=== PATIENT | male | born 1945 | race Caucasian/White ===

== ENCOUNTER → 2017-12-30 | Outpatient (CLI) | payer MEDICARE ==
[2017-12-30 17:05] LABS: BASO % 0.6 % (0.0-1.0); EOS # 0.2 10^3/uL (0.0-0.50); EOS % 3.2 % (0.0-3.0); HEMATOCRIT 39.6 % (42.0-52.0); HEMOGLOBIN 12.7 g/dl (13.5-17.5); IMMATURE GRANULOCYTE % 0.3 % (0-3.0); LYMPH # 2.2 10^3/uL (1.5-4.5); LYMPH % 34.7 % (24.0-44.0); MEAN CORPUSCULAR HGB CONC 32.1 g/dl (32.0-36.5); MEAN CORPUSCULAR VOLUME 93.4 fl (80.0-96.0); MONO # 0.6 10^3/uL (0.0-0.8); MONO % 9.6 % (0.0-5.0); NEUTROPHILS # 3.3 10^3/uL (1.8-7.7); NEUTROPHILS % 51.6 % (36.0-66.0); PLATELET COUNT, AUTOMATED 330 10^3/uL (150-450); RED BLOOD COUNT 4.24 10^6/uL (4.30-6.10); RED CELL DISTRIBUTION WIDTH 16.4 % (11.5-14.5); WHITE BLOOD COUNT 6.3 10^3/uL (4.0-10.0)
[2017-12-30 17:23] LABS: ESTIMATED AVERAGE GLUCOSE 114 MG/DL (60-110); HEMOGLOBIN A1c 5.6 %
[2017-12-30 17:30] LABS: ALBUMIN 3.8 GM/DL (3.2-5.2); ALBUMIN/GLOBULIN RATIO 1.23 (1.00-1.93); ALKALINE PHOSPHATASE 49 U/L (45-117); ALT/SGPT 18 U/L (12-78); ANION GAP 8 MEQ/L (8-16); AST/SGOT 15 U/L (7-37); BILIRUBIN,TOTAL 0.3 MG/DL (0.2-1.0); BLOOD UREA NITROGEN 26 MG/DL (7-18); CALCIUM LEVEL 9.5 MG/DL (8.8-10.2); CARBON DIOXIDE LEVEL 27 MEQ/L (21-32); CHLORIDE LEVEL 107 MEQ/L (98-107); CHOLESTEROL LEVEL 132 MG/DL (<200); CHOLESTEROL RISK RATIO 1.833 (<5); GLOMERULAR FILTRATION RATE > 60.0 (>42); GLUCOSE, FASTING 86 MG/DL (70-100); HDL CHOLESTEROL 72 MG/DL (>40); NON-HDL-C 60 MG/DL; POTASSIUM SERUM 4.8 MEQ/L (3.5-5.1); SODIUM LEVEL 142 MEQ/L (136-145); TOTAL PROTEIN 6.9 GM/DL (6.4-8.2); TRIGLYCERIDES LEVEL 55 MG/DL (<150)
== END ==
LOC: M LRY 12:51
DX: R53.83 Other fatigue (principal); I10 Essential (primary) hypertension; E78.2 Mixed hyperlipidemia; E11.9 Type 2 diabetes mellitus without complications; Z12.5 Encounter for screening for malignant neoplasm of prostate
CPT/HCPCS: 84443

== ENCOUNTER → 2018-02-17 | Outpatient (REF) | payer MEDICARE ==
[2018-02-17 13:03] LABS: BLOOD UREA NITROGEN 22 MG/DL (7-18)
[2018-02-17 13:03] LABS: C REACTIVE PROTEIN QUANTITATIV 1.26 MG/DL (0.00-0.30); CREATININE FOR GFR 0.97 MG/DL (0.70-1.30); GLOMERULAR FILTRATION RATE > 60.0 (>42)
[2018-02-17 13:16] LABS: ERYTHROCYTE SEDIMENTATION RATE 34 mm/hr (0-20)
== END ==
LOC: M LABDRAW1 12:12
DX: M43.06 Spondylolysis, lumbar region (principal)
CPT/HCPCS: 82565

== ENCOUNTER → 2018-03-16 | Outpatient (CLI) | payer MEDICARE ==
[2018-03-16 13:05] LABS: ERYTHROCYTE SEDIMENTATION RATE 30 mm/hr (0-20)
[2018-03-16 13:13] LABS: C REACTIVE PROTEIN QUANTITATIV 1.25 MG/DL (0.00-0.30)
== END ==
LOC: M LAB 12:28
DX: M47.892 Other spondylosis, cervical region (principal)
CPT/HCPCS: 86140

== ENCOUNTER → 2018-03-24 | Outpatient (CLI) | payer MEDICARE ==
[2018-03-24 13:46] LABS: BASO # 0.1 10^3/uL (0.0-0.2); BASO % 0.9 % (0.0-1.0); EOS # 0.3 10^3/uL (0.0-0.50); EOS % 5.1 % (0.0-3.0); HEMATOCRIT 37.2 % (42.0-52.0); HEMOGLOBIN 11.9 g/dl (13.5-17.5); IMMATURE GRANULOCYTE % 0.5 % (0-3.0); LYMPH % 30.8 % (24.0-44.0); MEAN CORPUSCULAR HEMOGLOBIN 30.4 pg (27.0-33.0); MEAN CORPUSCULAR VOLUME 95.1 fl (80.0-96.0); MONO # 0.6 10^3/uL (0.0-0.8); MONO % 8.9 % (0.0-5.0); NEUTROPHILS # 3.6 10^3/uL (1.8-7.7); NEUTROPHILS % 53.8 % (36.0-66.0); PLATELET COUNT, AUTOMATED 283 10^3/uL (150-450); RED BLOOD COUNT 3.91 10^6/uL (4.30-6.10); RED CELL DISTRIBUTION WIDTH 16.4 % (11.5-14.5); WHITE BLOOD COUNT 6.6 10^3/uL (4.0-10.0)
[2018-03-24 14:15] LABS: ALBUMIN 3.5 GM/DL (3.2-5.2); ALBUMIN/GLOBULIN RATIO 1.35 (1.00-1.93); ALKALINE PHOSPHATASE 49 U/L (45-117); ALT/SGPT 19 U/L (12-78); ANION GAP 4 MEQ/L (8-16); AST/SGOT 16 U/L (7-37); BILIRUBIN,TOTAL 0.4 MG/DL (0.2-1.0); BLOOD UREA NITROGEN 25 MG/DL (7-18); CALCIUM LEVEL 9.1 MG/DL (8.8-10.2); CARBON DIOXIDE LEVEL 27 MEQ/L (21-32); CHLORIDE LEVEL 108 MEQ/L (98-107); CHOLESTEROL LEVEL 120 MG/DL (<200); CHOLESTEROL RISK RATIO 2.105 (<5); CREATININE FOR GFR 0.91 MG/DL (0.70-1.30); GLOMERULAR FILTRATION RATE > 60.0 (>42); GLUCOSE, FASTING 83 MG/DL (70-100); HDL CHOLESTEROL 57 MG/DL (>40); LDL CHOLESTEROL 50 MG/DL (<100); NON-HDL-C 63 MG/DL; PROSTATIC SPECIFIC AG MONITOR 0.91 NG/ML (< 4.0); SODIUM LEVEL 139 MEQ/L (136-145); TESTOSTERONE 288 NG/DL (241-827); THYROID STIMULATING HORMONE 0.927 uIU/ML (0.358-3.740); TOTAL PROTEIN 6.1 GM/DL (6.4-8.2); TRIGLYCERIDES LEVEL 66 MG/DL (<150)
[2018-03-24 14:44] LABS: ESTIMATED AVERAGE GLUCOSE 114 MG/DL (60-110); HEMOGLOBIN A1c 5.6 %
== END ==
LOC: M LAB 12:59
DX: R53.83 Other fatigue (principal); I10 Essential (primary) hypertension; E11.9 Type 2 diabetes mellitus without complications; R79.89 Other specified abnormal findings of blood chemistry; E78.2 Mixed hyperlipidemia
CPT/HCPCS: 84403

== ENCOUNTER → 2018-08-25 | Outpatient (CLI) | payer MEDICARE ==
[~2018-08-25] MED LIST: ACET1TAB55 PO; ADV250INH INH; ALBU17IN INH; ARIC1TAB2 PO; ASPI81TA26 PO; BACL10TA2 PO; BROV15NE INH; BUDE0.5S6 INH; CETI5TAB2 PO; CYCL5TAB5 PO; DILA1LIQ2 PO; ETOD30CA PO; EUCERIN TOP; FENO135C6 PO; FIBE625T22 PO; HYDR-3715 PO; KLOR10TA76 PO; KLOR1TAB73 PO; MAGN500T5 PO; META1TAB22 PO; METR1INJ2 IV; MIRA0.12 PO; MOME50SP; MUCI600T37 PO; NEUR600T PO; OMEP20CA3 PO; OSTETAB7 PO; PERC5TAB12 PO; PULM90IN INH; REST0.05 OU; ROCE1INJ6 INJ; SING10TA32 PO; SPIR50TA4 PO; SULF500T2 PO; TEST200I14 IM; TRIAMCIN TOP; TRIL135C6 PO; TUDO1AER2 INH; VALS320T PO; VICT18IN SC; VITA500T PO; VITMTA PO; XYZA5TAB2 PO; ZETI10TA30 PO; ZYLO300T6 PO
--- NOTE | 2018-08-25 12:19 | REP ---
CHEST X-RAY: Three views presented. HISTORY: Asthma. COMPARISON STUDY: March 31, 2006. FINDINGS: The lungs are symmetrically aerated and free of infiltrate. Pleural angles are sharp. Heart is not enlarged. The aorta is calcific and somewhat tortuous. There are degenerative changes in the thoracic spine. Right hemidiaphragm is slightly elevated with colonic gas immediately beneath it. There are degenerative changes in the shoulders. IMPRESSION: No active disease. Electronically Signed by Rashard Hill MD 08/25/2018 01:08 P
== END ==
LOC: M SMT 09:54
PROVIDERS: ATTEND Internal Medicine Pulmonary Disease
DX: J45.40 Moderate persistent asthma, uncomplicated (principal)

== ENCOUNTER → 2018-09-22 | Outpatient (CLI) | payer MEDICARE ==
[2018-09-22 20:49] LABS: ALBUMIN 3.5 GM/DL (3.2-5.2); ALT/SGPT 19 U/L (12-78); BILIRUBIN,TOTAL 0.2 MG/DL (0.2-1.0); BLOOD UREA NITROGEN 26 MG/DL (7-18); CALCIUM LEVEL 8.9 MG/DL (8.8-10.2); CARBON DIOXIDE LEVEL 31 MEQ/L (21-32); CHLORIDE LEVEL 109 MEQ/L (98-107); CHOLESTEROL LEVEL 184 MG/DL (<200); CHOLESTEROL RISK RATIO 2.875 (<5); CREATININE FOR GFR 1.03 MG/DL (0.70-1.30); FREE T4 0.88 NG/DL (0.76-1.46); GLOMERULAR FILTRATION RATE > 60.0 (>42); GLUCOSE, FASTING 61 MG/DL (70-100); HDL CHOLESTEROL 64 MG/DL (>40); LDL CHOLESTEROL 93 MG/DL (<100); NON-HDL-C 120 MG/DL; POTASSIUM SERUM 4.6 MEQ/L (3.5-5.1); SODIUM LEVEL 143 MEQ/L (136-145); TRIGLYCERIDES LEVEL 137 MG/DL (<150)
[2018-09-22 20:50] LABS: BASO # 0.1 10^3/uL (0.0-0.2); BASO % 0.9 % (0.0-1.0); EOS # 0.4 10^3/uL (0.0-0.50); EOS % 4.9 % (0.0-3.0); HEMATOCRIT 41.9 % (42.0-52.0); HEMOGLOBIN 13.4 g/dl (13.5-17.5); LYMPH # 2.1 10^3/uL (1.5-4.5); LYMPH % 23.5 % (24.0-44.0); MEAN CORPUSCULAR HEMOGLOBIN 30.9 pg (27.0-33.0); MEAN CORPUSCULAR VOLUME 96.5 fl (80.0-96.0); MONO # 0.8 10^3/uL (0.0-0.8); MONO % 9.5 % (0.0-5.0); NEUTROPHILS # 5.3 10^3/uL (1.8-7.7); NEUTROPHILS % 60.2 % (36.0-66.0); PLATELET COUNT, AUTOMATED 382 10^3/uL (150-450); RED BLOOD COUNT 4.34 10^6/uL (4.30-6.10); WHITE BLOOD COUNT 8.9 10^3/uL (4.0-10.0)
== END ==
LOC: M LRY 18:22
PROVIDERS: ATTEND Physician Assistant Medical
DX: E11.9 Type 2 diabetes mellitus without complications (principal); E78.2 Mixed hyperlipidemia; I10 Essential (primary) hypertension; R53.83 Other fatigue

== ENCOUNTER 2019-03-06 20:39 | Inpatient (IN) | payer MEDICARE ==
[~2019-03-06] VITALS: Ht 175.3 cm; Wt 139.4 kg
[~2019-03-06 20:39] MED LIST changes: -OMEP20CA3 PO; +OMEP20CA4 PO; -TUDO1AER2 INH; +TUDO1AER3 INH; +ZETI10TA16 PO; -ZETI10TA30 PO
[2019-03-06] MEDS ORDERED: MORPHINE 2 MG/ML 1ML SYRINGE (J2270) IV ONE (22:00)
[2019-03-06] MEDS ORDERED: OMEP-221 PO (22:29)
[2019-03-06] MEDS ORDERED: ACET-683 PO (22:29)
[2019-03-06] MEDS ORDERED: CALC625T15 PO (22:29)
[2019-03-06] MEDS ORDERED: LOSA100T8 PO (22:29)
[2019-03-06] MEDS ORDERED: OSTE5TAB PO (22:29)
[2019-03-06] MEDS ORDERED: EQL50TAB2 PO (22:30)
[2019-03-06] MEDS ORDERED: CO Q400C2 PO (22:30)
[2019-03-06] MEDS ORDERED: EUCECRE8 TOP (22:30)
[2019-03-06] MEDS ORDERED: ALL10TAB29 PO (22:30)
[2019-03-06] MEDS ORDERED: REST0.05 OU (22:30)
[2019-03-06] MEDS ORDERED: MAGN400T2 PO (22:30)
[2019-03-06] MEDS ORDERED: MUCI600T31 PO (22:30)
[2019-03-06] MEDS ORDERED: LYRI75CA PO (22:31)
[2019-03-06] MEDS ORDERED: BUME1TAB3 PO (22:31)
[2019-03-06] MEDS ORDERED: XALA0.007 OU (22:31)
[2019-03-06] MEDS ORDERED: ANOR1AER INH (22:31)
[2019-03-06] MEDS ORDERED: TRAM50TA2 PO (22:31)
[2019-03-06 22:52] LABS: BASO # 0.1 10^3/uL (0.0-0.2); BASO % 0.9 % (0.0-1.0); EOS # 0.3 10^3/uL (0.0-0.5); EOS % 2.9 % (0.0-3.0); HEMATOCRIT 43.1 % (42.0-52.0); HEMOGLOBIN 13.8 g/dl (13.5-17.5); LYMPH # 1.6 10^3/uL (1.5-5.0); LYMPH % 14.4 % (24.0-44.0); MEAN CORPUSCULAR HEMOGLOBIN 30.6 pg (27.0-33.0); MEAN CORPUSCULAR VOLUME 95.6 fl (80.0-96.0); MONO # 0.9 10^3/uL (0.0-0.8); MONO % 7.8 % (0.0-5.0); NEUTROPHILS # 8.4 10^3/uL (1.5-8.5); NEUTROPHILS % 73.5 % (36.0-66.0); PLATELET COUNT, AUTOMATED 309 10^3/uL (150-450); RED BLOOD COUNT 4.51 10^6/uL (4.30-6.10); WHITE BLOOD COUNT 11.4 10^3/uL (4.0-10.0)
[2019-03-06 22:57] LABS: BLOOD UREA NITROGEN 26 MG/DL (7-18); CALCIUM LEVEL 9.4 MG/DL (8.8-10.2); CARBON DIOXIDE LEVEL 29 MEQ/L (21-32); CHLORIDE LEVEL 104 MEQ/L (98-107); CREATININE FOR GFR 1.19 MG/DL (0.70-1.30); GLOMERULAR FILTRATION RATE > 60.0 (>42); GLUCOSE, FASTING 103 MG/DL (70-100); POTASSIUM SERUM 4.1 MEQ/L (3.5-5.1); SODIUM LEVEL 140 MEQ/L (136-145)
[2019-03-07] MEDS ORDERED: MAALOX 30 ML SUSP *UDC PO PRN (00:30)
[2019-03-07] MEDS ORDERED: MOM 30ML SUSPENSION UDC PO PRN (00:30)
--- NOTE | 2019-03-07 00:44 | HPEPDOC ---
General Date of Admission 03/07/19 Date of Service: Mar 07, 2019 Primary Care Physician: Ron Mcmillan Chief Complaint The patient is a 73-year-old male admitted with a reason for visit of Left Hip Pain. Source: Patient Exam Limitations: No limitations Timing/Duration: Other (today) Severity: Severe Associated Symptoms: Other (, unable to ambulate) History of Present Illness This is a 72 years old, obese, white male with past medical history of chronic back pain, COPD, asthma up sleep apnea, GERD, hypertension, type 2 diabetes, history of hypokalemia, hyperlipidemia, diverticulosis, peptic ulcer disease, gout, psoriasis, dementia, cataract with dry eyes Coppertone syndrome, arthritis and of health when this evening he suddenly felt he he became weak on his left hip and was unable to ambulate and called EMS and was brought to the hospital. The patient denies chest pain, shortness of breath, nausea, vomiting, diarrhea, any focal motor or sensory deficit, headache, etc. Home Medications Scheduled Allopurinol (Zyloprim) 300 Mg Tab, 300 MG PO DAILY, (Reported) Ascorbic Acid (Vitamin C) 500 Mg Tab, 500 MG PO DAILY, (Reported) Aspirin (Aspirin EC) 81 Mg Tab, 81 MG PO QHS, (Reported) Baclofen (Baclofen) 10 Mg Tab, 10 MG PO TID, (Reported) Budesonide (Budesonide) 0.5 Mg/2 Ml Neb, 0.5 MG INH BID, (Reported) WITH BROVANA Bumetanide (Bumetanide) 1 Mg Tablet, 1 MG PO DAILY, (Reported) Calcium Polycarbophil (Calcium Polycarbophil) 625 Mg Tablet, 1,250 MG PO BID, (Reported) Cetirizine HCl (Cetirizine HCl) 10 Mg Tablet, 10 MG PO QHS, (Reported) Cyclosporine (Restasis) 0.05% Droperette, 1 DROP OU BID, (Reported) Donepezil HCl (Aricept) 10 Mg Tab, 10 MG PO DAILY, (Reported) Fenofibric Acid (Choline) (Fenofibric Acid) 135 Mg Cap, 135 MG PO QHS, (Reported) Glucosamine/D3/Boswellia Kasia (Osteo Bi-Flex Caplet) 1 Each Tablet, 2 TAB PO DAILY, (Reported) Guaifenesin (Mucinex) 600 Mg Tab.er.12h, 600 MG PO BID, (Reported) Latanoprost (Xalatan) 0.005% 2.5ML Drops, 1 DROP OU QHS, (Reported) Losartan/Hydrochlorothiazide (Losartan-Hctz 100-12.5 mg Tab) 1 Each Tablet, 1 TAB PO DAILY, (Reported) Magnesium Oxide (Magnesium Oxide) 400 Mg Tablet, 400 MG PO BID, (Reported) Mometasone Furoate Monohydrate (Nasonex) 120 [place]/17 Gm Naspr, 1 SPRAY NA BID, (Reported) Montelukast Sodium (Singulair) 10 Mg Tab, 10 MG PO QHS, (Reported) Multivitamins (Thera M Plus Tablet) 1 Tab Tab, 1 TAB PO DAILY, (Reported) Omeprazole (Omeprazole) 40 Mg Capsule.dr, 40 MG PO DAILY, (Reported) Potassium Chloride (Klor-Con M10) 10 Meq Tabcr, 10 MEQ PO DAILY, (Reported) Pramipexole Di-HCl (Mirapex) 0.125 Mg Tab, 0.125 MG PO QHS, (Reported) Pregabalin (Lyrica) 75 Mg Capsule, 75 MG PO TID, (Reported) Spironolactone (Spironolactone) 50 Mg Tab, 50 MG PO BID, (Reported) Sulfasalazine (Sulfasalazine) 500 Mg Tab, 1,000 MG PO DAILY, (Reported) Ubidecarenone (Co Q-10) 400 Mg Capsule, 400 MG PO DAILY, (Reported) Umeclidinium Brm/Vilanterol Tr (Anoro Ellipta 62.5-25 Mcg INH) 1 Each Blst.w.dev , 1 PUFF INH DAILY, (Reported) Vitamin B Complex (Vitamin B Complex) 1 Each Tablet, 1 TAB PO DAILY, (Reported) Scheduled PRN Acetaminophen (Acetaminophen) 500 Mg Tablet, 1,000 MG PO Q6H PRN for PAIN, (Reported) Lanolin Alcohol/Mo/W.pet/[place] (Eucerin Creme) 454 Gm Cream..g., 1 DOSE TOP QID PRN for PSORIASIS, (Reported) Tramadol HCl (Tramadol HCl) 50 Mg Tablet, 50 MG PO QID PRN for PAIN, (Reported) Allergies Coded Allergies: fluticasone (Verified Allergy, Unknown, 03/06/19) thiopental (Verified Allergy, Unknown, 03/07/19) Past Medical History Medical History Chronic back pain, COPD, asthma, stroke, obstructive sleep apnea, GERD, hypertension, type 2 diabetes mellitus, hypokalemia, hyperlipidemia, diverticulosis, peptic ulcer disease, obesity, gout, psoriasis, dementia, cataract Coppertone syndrome and arthritis Surgical History Bilateral carpal tunnel syndrome repair, bilateral cataract surgery, inguinal hernia repair Family History Significant Family History: No pertinent family hx Social History * Smoker: former Smoker Alcohol: Denies Drugs: denies A-FIB/CHADSVASC A-FIB History Current/History of A-Fib/PAF?: No Review of Systems Constitutional: Denies: Chills, Fever, Malaise, Night Sweats, Weakness, Fatigue, Weight Loss, Lethargy, Other Eyes: Denies: Pain, Vision change, Conjunctivae inflammation, Eyelid inf lammation, Redness, Other ENT: Denies: Head Aches, Ear Pain, Dysphagia, Sinus Congestion, Post Nasal Drip, Sore Throat, Epistaxis, Other Symptoms Skin: Denies: Rash, Lesions, Jaundice, Bruising, Itching, Dry, Breakdown, Nail Changes, Other Pulmonary: Denies: Dyspnea, Cough, Pleuritic Chest Pain, Other Symptoms Cardiovascular: Denies: Chest Pain, Palpitations, Orthopnea, Paroxysmal Noc. Dyspnea, Edema, Lt Headedness, Other Symptoms Gastrointestinal: Denies: Nausea, Vomiting, Abdominal Pain, Diarrhea, Constipation, Melena, Hematochezia, Other Symptoms Genitourinary: Denies: Dysuria, Frequency, Incontinence, Hematuria, Retention, Other Symptoms Hematologic: Denies: Bruising, Bleeding Excessively, Petecchia, Purpura, Enlarged Lymph Nodes, Other Hematologic Endocrine: Denies: Polydipsia, Polyphagia, Polyuria, Heat Intolerance, Cold Intolerance, Other Endocrine Sx Musculoskeletal: Reports: Other Symptoms (, weakness and pain in the left hip muscles) Neurological: Denies: Weakness, Numbness, Incoordination, Change in speech, Confusion, Seizures, Other Symptoms Psych: Denies: Mood Normal, Anxiety, Depression, Memory Issues, Thoughts of Self Harm, Anger, Thoughts of Harming Other, Other Psych Physical Examination General Exam: Positive: Alert, Cooperative Eye Exam: Positive: PERRLA, Conjunctiva & lids normal ENT Exam: Positive: Atraumatic, Mucous membr. moist/pink Chest Exam: Positive: Clear to auscultation, Normal air movement Heart Exam: Positive: Rate Normal, Normal S1, Normal S2 Abdomen Exam: Positive: Normal bowel sounds, Soft Extremity Exam: Positive: Normal pulses, Tenderness (. Positive tender. Tenderness and a dissection of left leg on his head) Skin Exam: Positive: Nl turgor and temperature Neuro Exam: Positive: Strength at 5/5 X4 ext, Sensation Intact, Cranial Nerves 3-12 NL Vital Signs Vital Signs Date Time Temp Pulse Resp B/P (MAP) Pulse Ox O2 Delivery O2 Flow Rate FiO2 03/06/19 23:06 20 98 03/06/19 22:58 76 166/74 (104) Room Air 03/06/19 20:48 97.3 Laboratory Data Labs 24H Laboratory Tests 2 03/06/19 22:21: Immature Granulocyte % (Auto) 0.5, White Blood Count 11.4H, Red Blood Count 4.51, Hemoglobin 13.8, Hematocrit 43.1, Mean Corpuscular Volume 95.6, Mean Corpuscular Hemoglobin 30.6, Mean Corpuscular Hemoglobin Concent 32.0, Red Cell Distribution Width 15.2H, Platelet Count 309, Neutrophils (%) (Auto) 73.5H, Lymphocytes (%) (Auto) 14.4L, Monocytes (%) (Auto) 7.8H, Eosinophils (%) (Auto) 2.9, Basophils (%) (Auto) 0.9, Neutrophils # (Auto) 8.4, Lymphocytes # (Auto) 1.6, Monocytes # (Auto) 0.9H, Eosinophils # (Auto) 0.3, Basophils # (Auto) 0.1, Nucleated Red Blood Cells % (auto) 0.0, Anion Gap 7L, Glomerular Filtration Rate > 60.0, Blood Urea Nitrogen 26H, Creatinine 1.19, Sodium Level 140, Potassium Level 4.1, Chloride Level 104, Carbon Dioxide Level 29, Calcium Level 9.4 CBC/BMP Laboratory Tests 03/06/19 22:21 Red Blood Count 4.51, Mean Corpuscular Volume 95.6, Mean Corpuscular Hemoglobin 30.6, Mean Corpuscular Hemoglobin Concent 32.0, Red Cell Distribution Width 15.2 H, Neutrophils (%) (Auto) 73.5 H, Lymphocytes (%) (Auto) 14.4 L, Monocytes (%) (Auto) 7.8 H, Eosinophils (%) (Auto) 2.9, Basophils (%) (Auto) 0.9, Neutrophils # (Auto) 8.4, Lymphocytes # (Auto) 1.6, Monocytes # (Auto) 0.9 H, Eosinophils # (Auto) 0.3, Basophils # (Auto) 0.1, Calcium Level 9.4 Problems (1) Decreased ambulation status Status: Acute Problem Text: 73 years old white male who is obese with multiple medical problems developed sudden onset of weakness, sudden weakness in his left hip. On ambulation, and was unable to walk on his left hip and decided come to ED. On physical exam, he has a tenderness and difficulty in abduction of left leg on the left hip but no focal motor or sensory deficit Dr. Jackson was called from orthopedic. He will see the patient tomorrow and r ecommend further management. Admit patient to medical floor with diagnosis of difficulty ambulation Bed rest 2 g sodium, consistent carbs diet Continue all home meds DVT prophylaxis with Lovenox Physical therapy evaluation called Dr. Jackson to see patient in a.m. Further, as per orthopedic recommendations (2) Strain of adductor muscle of thigh Status: Acute Problem Text: As above (3) TUSHAR on CPAP Status: Chronic Problem Text: CPAP during sleeping Continue home meds (4) Diabetes Status: Chronic Problem Text: Continue home meds Getting a extensive Q before meals and at bedtime with coverage (5) Hypertension Status: Chronic Problem Text: Under control Continue home meds (6) Hyperlipidemia Status: Chronic Problem Text: . Continue home meds (7) Gout Status: Chronic Problem Text: Continue home meds (8) Dementia Status: Chronic (9) Chronic obstructive airway disease with asthma Status: Chronic Problem Text: Continue home meds (10) Psoriasis Status: Chronic (11) Seasonal allergies Status: Chronic (12) GERD (gastroesophageal reflux disease) Status: Chronic Problem Text: Continue home meds Plan / VTE VTE Prophylaxis Ordered?: Yes JATINDER QUEEN MD Mar 07, 2019 00:44
[2019-03-07] MEDS: CETIRIZINE (ZyrTEC) 10 MG TAB PO SCH ×2 (02:22→23:11)
[2019-03-07] MEDS: ASPIRIN 81 MG ENTERIC TAB PO SCH ×2 (02:22→23:12)
[2019-03-07] MEDS: MONTELUKAST 10 MG TAB PO SCH ×2 (02:22→23:11)
[2019-03-07] MEDS: traMADol 50 MG TAB PO PRN (02:24)
[2019-03-07] MEDS: FENOFIBRATE 145 MG TAB (TRICOR) PO SCH ×2 (03:20→23:11)
[2019-03-07] MEDS: PRAMIPEXOLE (MIRAPEX) 0.125 MG TAB PO SCH ×2 (03:20→23:12)
[2019-03-07 05:31] VITALS: BP 150/72
[2019-03-07] MEDS: HEPARIN SOD (PORCINE) 5000 UNITS/ML VIAL SC SCH ×2 (06:11→18:45)
[2019-03-07] MEDS: BUDESONIDE 0.5 MG/2 ML INHALATION SUSPENSION INH SCH ×2 (07:27→17:59)
[2019-03-07 07:51] LABS: HEMATOCRIT 41.7 % (42.0-52.0); HEMOGLOBIN 13.4 g/dl (13.5-17.5); MEAN CORPUSCULAR HEMOGLOBIN 30.2 pg (27.0-33.0); MEAN CORPUSCULAR HGB CONC 32.1 g/dl (32.0-36.5); MEAN CORPUSCULAR VOLUME 94.1 fl (80.0-96.0); PLATELET COUNT, AUTOMATED 304 10^3/uL (150-450); RED BLOOD COUNT 4.43 10^6/uL (4.30-6.10); WHITE BLOOD COUNT 7.5 10^3/uL (4.0-10.0)
[2019-03-07] MEDS: ASCORBIC ACID 500 MG TAB PO SCH (08:20)
[2019-03-07] MEDS: hydroCHLOROthiazide 12.5 MG CAPSULE PO SCH (08:20)
[2019-03-07] MEDS: DONEPEZIL 5 MG TAB PO SCH (08:20)
[2019-03-07] MEDS: PREGABALIN 75 MG CAP(LYRICA) PO SCH ×3 (08:20→23:12)
[2019-03-07] MEDS: MULTIVITAMINS/MINERALS THERAP 1 TAB PO SCH (08:20)
[2019-03-07 08:21] LABS: ALBUMIN 3.5 GM/DL (3.2-5.2); ALT/SGPT 22 U/L (12-78); BILIRUBIN,TOTAL 0.4 MG/DL (0.2-1.0); BLOOD UREA NITROGEN 21 MG/DL (7-18); CALCIUM LEVEL 9.2 MG/DL (8.8-10.2); CARBON DIOXIDE LEVEL 29 MEQ/L (21-32); CHLORIDE LEVEL 105 MEQ/L (98-107); CREATININE FOR GFR 0.98 MG/DL (0.70-1.30); GLOMERULAR FILTRATION RATE > 60.0 (>42); GLUCOSE, FASTING 107 MG/DL (70-100); POTASSIUM SERUM 4.1 MEQ/L (3.5-5.1); SODIUM LEVEL 140 MEQ/L (136-145); TOTAL PROTEIN 6.7 GM/DL (6.4-8.2)
[2019-03-07] MEDS: BUMETANIDE 1 MG TAB PO SCH (08:21)
[2019-03-07] MEDS: ALLOPURINOL 300 MG TAB PO SCH (08:21)
[2019-03-07] MEDS: FIBER-CON 625 MG TAB PO SCH ×2 (08:21→23:12)
[2019-03-07] MEDS: MAGNESIUM OXIDE 400 MG TAB (MAG-OX) PO SCH ×2 (08:21→23:12)
[2019-03-07] MEDS: LOSARTAN 50 MG TAB PO SCH (08:21)
[2019-03-07] MEDS: guaiFENesin ER 600 MG TAB PO SCH ×2 (08:21→23:11)
[2019-03-07] MEDS: PANTOPRAZOLE 40MG TAB (PROTONIX) PO SCH (08:22)
[2019-03-07] MEDS: SPIRONOLACTONE 50 MG TAB PO SCH ×2 (08:22→23:12)
[2019-03-07] MEDS: POTASSIUM CHLORIDE 10 MEQ SR TABLET PO SCH (08:22)
[2019-03-07] MEDS: BACLOFEN 10 MG TAB PO SCH ×3 (08:22→23:11)
[2019-03-07] MEDS: DOCUSATE SODIUM 100 MG CAP PO SCH ×2 (08:25→23:10)
[2019-03-07] MEDS: ACETAMINOPHEN TAB 650MG DOSE (2X325MG) PO PRN ×2 (08:29→16:21)
[2019-03-07] MEDS ORDERED: FLUTICASONE PROP 0.05% NASAL SPRAY 16 GM (FLONASE) SCH (09:00)
[2019-03-07] MEDS: sulfaSALAzine 500 MG TABEC PO SCH (11:59)
--- NOTE | 2019-03-07 13:33 | REP ---
REASON FOR EXAM: Twisting injury yesterday. There is asymmetric hip joint space narrowing which is moderate. There is no acute fracture, dislocation or subluxation. IMPRESSION: Chronic changes. Electronically Signed by Gutierrez Jaramillo DO 03/07/2019 02:15 P
[2019-03-07 14:59] VITALS: BP 160/80
[2019-03-07 18:49] LABS: MAGNESIUM LEVEL 2.3 MG/DL (1.8-2.4); PHOSPHORUS LEVEL 3.4 MG/DL (2.5-4.9)
--- NOTE | 2019-03-07 19:16 | CR ---
DATE OF ADMISSION: 03/06/2019 CHIEF COMPLAINT: Left groin pain. HISTORY OF PRESENT ILLNESS: This 73-year-old man was in the kitchen yesterday evening. He went to turn and he felt like his legs in his "groin." [place] like his leg got "squashed." He has pain in the groin. He never had this before. It stayed in the groin. He found it difficult to ambulate, so he called an ambulance and presented to [facility]. He is admitted by the hospitalist and consulted to myself. He does have chronic problems with his lumbar spine. He has had two MRIs, at least, back in 2014 and 2018. He has seen Dr. Lakhani at some point. He has not had lumbar spine surgery. He has had bilateral knee replacements and a left reverse total shoulder arthroplasty. He was about to go down for a consult and MRI of his lumbar spine down in [place] the day that he fell, unfortunately. The pain is worse with abducting his leg. He did get up and walk a short distance today with a walker, but he had to keep his legs together to do that. It has gotten a little bit better since this first started about 24 hours ago. There is no hot, warm, swollen joints. Coughing does not make it worse. He normally ambulates with a cane. PAST MEDICAL HISTORY: Includes chronic back pain, chronic obstructive pulmonary disease (COPD), asthma, sleep apnea, gastroesophageal reflux disease (GERD), hypertension, type 2 diabetes, hypokalemia, hyperlipidemia, diverticulosis, peptic ulcer disease, gout, psoriasis, dementia, cataract with dry eyes, arthritis. HOME MEDICATIONS: Include allopurinol, vitamin C, aspirin, baclofen, budesonide, bumetanide, calcium polycarbophil, cetirizine, cyclosporine, donepezil, fenofibric acid, glucosamine, Mucinex, Xalatan, losartan/hydrochlorothiazide, magnesium oxide, mometasone, montelukast, multivitamin, omeprazole, potassium chloride, pramipexole, pregabalin, sironolactone, sulfasalazine, ubidecarenone, Anoro Ellipta, and vitamin B complex. ALLERGIES: FLUTICASONE, SODIUM PENTOTHAL. SURGICAL HISTORY: Bilateral total knee arthroplasty. Bilateral carpal tunnel syndrome release. Bilateral cataract surgery. Inguinal hernia repair. Left reverse total shoulder arthroplasty. REVIEW OF SYSTEMS: Was negative for shortness of breath, chest pain, nausea, vomiting, diarrhea, focal motor or sensory deficits, although he does say that it is quite difficult to ambulate and that he has weakness in his left lower extremity. He also does state that he has chronic lower extremity sensory changes, but this not changed or made worse recently. No bowel or bladder involvement. No perianal numbness. PHYSICAL EXAM: A 73-year-old man. He is lying supine. He is quite frustrated with the care so far here, unfortunately, he is quite upset. He did settle down. He is alert and oriented times three. He is here with his son. Vital signs: Temperature 97.9. Blood pressure 160/80. Pulse rate 85. Respiratory rate 16. 92% on room air. Inspection of his bilateral lower extremities reveal no obvious overlying redness, swelling, ecchymosis, deformity or atrophy. On palpation, there is palpable soreness and pain on palpation at the proximal adductor insertion, as well as along the length to about the mid thigh. There is no fluctuance, fluid collections or any redness or warmth or muscle atrophy there. No pain to the lateral aspect of the hip or posteriorly. No pain to the right lower extremity. Hip range of motion 0 to 90 degrees painless with this. Hip adduction and external rotation caused him quite a bit of pain again in the groin. Hip adduction was painless. No obvious lumps, bumps, swellings, or hernia there. No abdominal pain. Range of motion of the knee was reasonable at 0 to 120 degrees. This was symmetric bilaterally. There is sequelae anterior midline incision of the bilateral total knee arthroplasties. No effusion, redness, swelling or drainage from these. Distally, there is lower extremity pitting edema. He had normal sensation of the feet and good sensation from L2 to S1 subjectively. He is able to wiggle his toes, dorsiflex, plantar flex the foot. Strength in the lower extremities was reasonably well maintained, slightly weaker on left side with hip flexion on the left 4/5, on the right side 4+/5. Knee extension L3 as well as ankle dorsiflexion, plantar flexion and extensor hallucis longus (EHL) extension all 5/5. Radiograph was reviewed of the left hip, AP and frog-leg lateral. There was moderate degenerative changes, joint space narrowing but no obvious fracture. Laboratory examination revealed white blood cells 11.4 on admission, down to 7.5. Hemoglobin is stable at 13.8 and 13.4. ASSESSMENT/PLAN: 73-year-old man seems to have a muscular sprain/strain or an adductor muscle tear. He could have other things going on like exacerbation of his arthritis, exacerbation of his lumbar spinal stenosis, or even a hernia, or other organic causes of his hip pain. He is quite upset with the lack of investigations, and I think it is reasonable to obtain an updated MRI of his lumbar spine as he is at high risk of worsening of that given his age, obesity, and prior history of diskitis to rule that out. In addition, I will go ahead and order an MRI of his left hip to confirm the diagnosis and to put his mind at ease. I think in the meantime he be activity as tolerated, try nonoperative conservative measures to treat his presumed adductor sprain/tear, including physical therapy, anti-inflammatories, pain medications, gentle stretching, as well as heat and ice packs. We will see how this goes. He seemed more satisfied with this answer. I will see him in the morning when I round.
[2019-03-07 22:00] VITALS: BP 152/82
[2019-03-07] MEDS: LATANOPROST 0.005% OPHTH SOLN 2.5 ML OU SCH (23:10)
--- NOTE | 2019-03-07 23:28 | REPVR ---
PROCEDURE INFORMATION: Exam: MR Left Lower Extremity Without Contrast. Hip Exam date and time: 03/07/2019 10:23 PM Clinical history: 73 years old, male; Pain; Difficulty in walking and weakness; Hip; Left; Patient HX: Best images possible, PT was unable to tolerate further scanning at this time. ; Additional info: Assess adductor muscle tear or other cause of groin pain TECHNIQUE: Imaging protocol: MR of the Left lower extremity without intravenous contrast. Exam focused on the hip. COMPARISON: CR Hip, Ap,Lat 03/07/2019 12:34 PM FINDINGS: Some sequences are significantly degraded by patient motion artifact. As noted by the technologist, the patient is unable to tolerate further imaging. No evidence of an occult fracture seen. Mild reactive marrow edema is seen along the sacroiliac joints. No evidence of avascular necrosis at either femoral head. Slight heterogeneous red marrow is seen throughout the visualized pelvis which could be correlated for any underlying anemia. Intrinsic evaluation of the left hip is compromised by motion artifact. No obvious full-thickness cartilage loss is seen although chondromalacia is suspected. Small amount of fluid is seen at the left hip joint. No evidence of trochanteric, iliacus or iliopsoas bursitis. There is fluid sensitive signal hyperintensity involving the adductor compartment of the proximal left thigh, extending below the level of imaging, predominantly involving the abductor longus muscle, consistent with edema and/or hemorrhage. This may indicate a sprain or tear. Infection could have a similar appearance. Evaluation is limited by motion artifact. Edema and/or hemorrhage extend to the pubic origin of the muscle. Although not conclusive, there may be a small avulsion fragment inferolateral to the pubic tubercle, and/ or partial proximal tendon tear. IMPRESSION: Edema and/or hemorrhage extending below the level of imaging in the adductor compartment of the left proximal thigh, mainly involving the adductor longus muscle, suggesting injury, as discussed above. Complete evaluation is limited, as the entire extent is not included and on some sequences evaluation is significantly compromised by motion artifact. Findings discussed above in detail. Electronically signed by: Donovan Lagos On 03/07/2019 23:28:27 PM
--- NOTE | 2019-03-07 23:57 | REPVR ---
PROCEDURE INFORMATION: Exam: MR Lumbar Spine Without Contrast. Exam date and time: 03/07/2019 10:22 PM Clinical history: 73 years old, male; Lumbago with sciatica; Patient HX: Left groin pain; Additional info: Assess progression of preexisting stenosis ([facility]ors at [facility]) TECHNIQUE: Imaging protocol: Multiplanar magnetic resonance images of the lumbar spine without intravenous contrast. COMPARISON: CT abdomen/pelvis 02/15/2015. Study limitations: Diagnostic evaluation on some sequences is compromised by motion artifact. FINDINGS: There is moderate anterior vertebral body height loss at L1, similar to the prior exam and without associated edema, consistent with chronic compression. There may be bony fusion across the L1/L2 disc space. There is mild vertebral body height loss at L2 without associated edema consistent with chronic compression. Mild fluid sensitive signal hyperintensity is noted within the L3, L4 and L5 vertebral bodies which may be reactive/degenerative. No evidence of an occult fracture is seen. Heterogeneous marrow is noted at the lumbar levels. There is loss of anticipated yellow marrow signal elsewhere which could be correlated for underlying anemia. There is minimal retrolisthesis of L2 upon L3. There is mild retrolisthesis of L3 upon L4. There is grade 1 anterolisthesis of L4 upon L5. There is mild retrolisthesis of L5 upon S1. No paraspinal or ligamentous edema seen. The conus terminates at the T12 level with an unremarkable appearance. Nerve roots within the cauda equina appear diffusely thickened to the level of L5, filling the thecal sac, worrisome for arachnoiditis. There is prominent epidural fat, likely related to body habitus. T12/L1: There is mild disc space loss. Disc hydration is relatively preserved. There is mild posterior disc bulge. There is mild facet hypertrophy and ligamentum flavum hypertrophy. No significant-appearing central canal or neural foraminal compromise is seen. L1/L2: There is severe disc space loss and there may be bony fusion across the disc space. There is prominent posterior bony ridging. There is severe facet arthropathy and hypertrophy as well as ligamentum flavum hypertrophy. Findings result in mild to moderate spinal stenosis with moderate left subarticular zone compromise. Mild right and moderate left neural foraminal narrowing suspected. L2/L3: There is severe disc space loss and disc desiccation. There is severe concentric disc bulge and posterior bony ridging. There is severe ligamentum flavum hypertrophy. There is facet arthropathy and bony hypertrophy. Findings result in moderately severe spinal stenosis, severe left and moderately severe right neural foraminal narrowing. L3/L4: There is severe disc space loss and complete disc desiccation. Slight endplate irregularity is noted and changes of bony sclerosis around the disc space. There is moderately large posterior disc bulge and osteophyte complex. There is severe facet hypertrophy and ligamentum flavum hypertrophy which results in at least moderately severe spinal stenosis. There is compromise of the subarticular zones bilaterally. Severe bilateral neural foraminal narrowing suspected. L4/L5: There is severe disc space loss and disc desiccation. There is moderate concentric disc bulge. Small focal posterior central disc protrusion suspected slightly effacing the anterior thecal sac. There is severe facet arthropathy, facet hypertrophy and ligamentum flavum hypertrophy. These findings result in effacement and slight impingement of the exiting L4 nerve roots along the subarticular zones. At least moderate spinal stenosis otherwise centrally. L5/S1: There is severe disc space loss and disc desiccation. Moderate posterior disc bulging noted. There is moderately severe facet arthropathy. There is moderate ligamentum flavum hypertrophy. Posterior disc displacement slightly contact the left L5 nerve root the nerve root does not appear to be compressed. No central canal compromise is seen otherwise. Moderately severe bilateral neural foraminal narrowing is seen. IMPRESSION: Severe degenerative changes throughout the lumbar spine with multilevel malalignment. Findings result in central canal and foraminal compromise at multiple levels as discussed above. There is thickening of the nerve roots within the cauda equina above the L5 level, worrisome for arachnoiditis, filling the thecal sac. Followup with contrast is advised, to exclude any possibility of mass lesion within the cauda equina. Other findings discussed above in detail. Electronically signed by: Donovan Lagos On 03/07/2019 23:57:11 PM
[2019-03-08] MEDS: HEPARIN SOD (PORCINE) 5000 UNITS/ML VIAL SC SCH ×2 (05:44→17:34)
[2019-03-08 06:00] VITALS: BP 130/59
[2019-03-08 06:36] LABS: HEMATOCRIT 43.4 % (42.0-52.0); HEMOGLOBIN 14.3 g/dl (13.5-17.5); MEAN CORPUSCULAR HEMOGLOBIN 31.8 pg (27.0-33.0); MEAN CORPUSCULAR HGB CONC 32.9 g/dl (32.0-36.5); MEAN CORPUSCULAR VOLUME 96.4 fl (80.0-96.0); PLATELET COUNT, AUTOMATED 295 10^3/uL (150-450); WHITE BLOOD COUNT 8.1 10^3/uL (4.0-10.0)
[2019-03-08 06:59] LABS: ALBUMIN 3.4 GM/DL (3.2-5.2); ALT/SGPT 22 U/L (12-78); BILIRUBIN,TOTAL 0.4 MG/DL (0.2-1.0); BLOOD UREA NITROGEN 25 MG/DL (7-18); CALCIUM LEVEL 9.5 MG/DL (8.8-10.2); CARBON DIOXIDE LEVEL 30 MEQ/L (21-32); CHLORIDE LEVEL 104 MEQ/L (98-107); CREATININE FOR GFR 1.21 MG/DL (0.70-1.30); GLOMERULAR FILTRATION RATE > 60.0 (>42); GLUCOSE, FASTING 118 MG/DL (70-100); POTASSIUM SERUM 3.8 MEQ/L (3.5-5.1); SODIUM LEVEL 139 MEQ/L (136-145); TOTAL PROTEIN 6.9 GM/DL (6.4-8.2)
[2019-03-08] MEDS: BUDESONIDE 0.5 MG/2 ML INHALATION SUSPENSION INH SCH ×2 (07:10→20:25)
[2019-03-08] MEDS: DONEPEZIL 5 MG TAB PO SCH (09:32)
[2019-03-08] MEDS: DOCUSATE SODIUM 100 MG CAP PO SCH ×2 (09:32→20:46)
[2019-03-08] MEDS: MULTIVITAMINS/MINERALS THERAP 1 TAB PO SCH (09:32)
[2019-03-08] MEDS: MAGNESIUM OXIDE 400 MG TAB (MAG-OX) PO SCH ×2 (09:32→20:45)
[2019-03-08] MEDS: LOSARTAN 50 MG TAB PO SCH (09:33)
[2019-03-08] MEDS: BUMETANIDE 1 MG TAB PO SCH (09:33)
[2019-03-08] MEDS: hydroCHLOROthiazide 12.5 MG CAPSULE PO SCH (09:33)
[2019-03-08] MEDS: ALLOPURINOL 300 MG TAB PO SCH (09:33)
[2019-03-08] MEDS: FIBER-CON 625 MG TAB PO SCH ×2 (09:33→20:45)
[2019-03-08] MEDS: PREGABALIN 75 MG CAP(LYRICA) PO SCH ×3 (09:34→20:46)
[2019-03-08] MEDS: BACLOFEN 10 MG TAB PO SCH ×3 (09:34→20:45)
[2019-03-08] MEDS: SPIRONOLACTONE 50 MG TAB PO SCH ×2 (09:34→20:46)
[2019-03-08] MEDS: PANTOPRAZOLE 40MG TAB (PROTONIX) PO SCH (09:34)
[2019-03-08] MEDS: POTASSIUM CHLORIDE 10 MEQ SR TABLET PO SCH (09:34)
[2019-03-08] MEDS: ASCORBIC ACID 500 MG TAB PO SCH (09:34)
[2019-03-08] MEDS: guaiFENesin ER 600 MG TAB PO SCH ×2 (09:34→20:45)
--- NOTE | 2019-03-08 09:38 | REP ---
MRI lumbar spine: 03/08/2019. Indication: Low back pain. Follow-up to unenhanced MRI lumbar spine complete of the previous day. Comparison: Yesterday. Technique: Multiplanar T1 sequences following gadolinium administration were performed. Impression: There may be very subtle enhancement of the cauda quinine inferiorly. The degenerative endplate changes additionally secure expected enhancement. The study otherwise remains stable. Impression: Possible very subtle enhancement of the cauda quinine. Arachnoiditis/meningitis again considered. No areas of nodular enhancement are detected. Electronically Signed by Bryce Frazier DO 03/08/2019 09:30 A
[2019-03-08] MEDS: sulfaSALAzine 500 MG TABEC PO SCH (09:40)
[2019-03-08 10:00] VITALS: BP 120/57
[2019-03-08 14:00] VITALS: BP 122/63
--- NOTE | 2019-03-08 14:32 | IPN ---
DATE: 03/08/2019 CHIEF COMPLAINT: Post admission day 1 left groin pain. HISTORY OF PRESENT ILLNESS: This is a 73-year-old man who presented with 24-hour history of left groin pain following a twisting injury in his kitchen. He is experiencing pain in the groin that is worse with moving the leg away from the body. There are no neurologic symptoms, but he apparently has had chronic lumbar spinal stenosis in the past. He was communicating with Dr. Lakhani at [facility] ([facility]) multiple times in regards to this. He had also planned to go down to [place] yesterday for more imaging and another spine consult. PHYSICAL EXAM: This is a well-appearing 73-year-old man lying supine in bed. States that he feels more comfortable today. Vital signs: Stable yesterday evening, not recorded this morning. He is able wiggle his toes, dorsiflex and plantar flex his foot. He can lift his leg off the bed. Still with groin pain to hip abduction. MRI on the left hip was ordered and reviewed. Radiologist's report states some edema and/or hemorrhage extending below the level of imaging in the adductor compartment of the left proximal thigh, mainly involving the adductor longus muscle, suggesting injury, as discussed above. Complete evaluation is limited, the entire extent is not included and sequence evaluation is significantly compromised by motion artifact. . Right lumbar spine MRI was reviewed as well. This shows severe degenerative changes throughout the lumbar spine with multilevel with malalignment. Findings results of the central canal and foraminal compromise at multiple levels as discussed above. There is thickening of the nerve roots of the cauda equina above the L5 level, worrisome for arachnoiditis, filling of thecal sac. Followup with contrast is advised to exclude any possibility of mass lesion within the cauda equina. ASSESSMENT/PLAN: My overall clinical impression is still that this man's acute recent symptoms are more due to the abductor strain that is showing up on MRI of the hip. For the lumbar spine, the radiologist suggested followup MRI with contrast, and I will go ahead and order that. For his lumbar spine, I have communicated with Dr. Lakhani last night in regards to this man being in hospital and I will also ask Dr. Lakhani to see this man in regards to the new findings indicating potential arachnoiditis of his lumbar spine and the fact that we are following this up with another MRI with contrast to see if there is anything from a spine surgeon's perspective to do for this man.
--- NOTE | 2019-03-08 15:31 | IPNPDOC ---
Date Seen The patient was seen on 03/08/19. Progress Note SUBJECTIVE: 73-year-old male with past medical history of obstructive sleep apnea, diabetes, hypertension, gout, COPD, chronic back pain and GERD was admitted for hip pain after he felt like he pulled his muscle. Upon further resignation with an MRI patient likely had a muscle strain/tear. He reports significant improvement in pain and mobility since yesterday, is working with physical therapy, was able to get out of bed into chair on his own today. He reports chronic low back pain due to severe disc disease, no acute changes. He has no other complaints at this time, denies shortness of breath, chest pain, nausea, vomiting, abdominal pain or diarrhea. 10 point review of systems negative except for above PHYSICAL EXAMINATION: VITAL SIGNS: Please see below. GENERAL: No distress HEENT: Normocephalic, atraumatic, moist mucous membranes NECK: Supple CARDIOVASCULAR EXAMINATION: S1, S2, no murmurs RESPIRATORY EXAMINATION: Diminished, distant, no wheezing ABDOMINAL EXAMINATION: Soft, nontender, nondistended, positive bowel sounds EXTREMITIES: Left lower extremity range of motion limited due to pain SKIN: No rash NEUROLOGICAL EXAMINATION: Alert and oriented 3, no focal deficits PSYCHIATRIC EXAMINATION: Calm and cooperative LABORATORY DATA, IMAGING STUDIES, MICROBIOLOGY: Please see below. DVT prophylaxis ordered?: Yes ASSESSMENT AND PLAN: 73-year-old male with past medical history of obstructive sleep apnea, diabetes, hypertension and chronic back pain, admitted for abductor longus strain/tear. PROBLEMS: 1. Left hip pain: . MRI showing possible abductor longus strain/tear. MRI of the lumbar spine concerning for arachnoiditis/meningitis. Orthopedic surgery following, spine surgeon consulted. Continue pain control, PT/OT. 2. COPD: . Stable, continue home meds 3. Obstructive sleep apnea: Continue CPAP at night. 4. Hypertension. Continue home meds with hold parameters. 5. Gout. Continue allopurinol. DVT prophylaxis: Heparin subcutaneous. GI prophylaxis: Protonix VS, I&O, 24H, Fishbone Vital Signs/I&O Vital Signs Date Time Temp Pulse Resp B/P (MAP) Pulse Ox O2 Delivery O2 Flow Rate FiO2 03/08/19 10:00 98.0 76 17 120/57 (78) 90 03/07/19 04:21 Room Air I&O- Last 24 Hours up to 6 AM 03/08/19 06:00 Intake Total 600 ml Output Total 2500 ml Balance -1900 ml Laboratory Data 24H LABS Laboratory Tests 2 03/07/19 17:33: Phosphorus Level 3.4, Magnesium Level 2.3 03/08/19 06:10: Nucleated Red Blood Cells % (auto) 0.0, Anion Gap 5L, Glomerular Filtration Rate > 60.0, Calcium Level 9.5, Total Bilirubin 0.4, Aspartate Amino Transf (AST/SGOT) 32, Alanine Aminotransferase (ALT/SGPT) 22, Alkaline Phosphatase 52, Total Protein 6.9, Albumin 3.4, Albumin/Globulin Ratio 0.97L CBC/BMP Laboratory Tests 03/08/19 06:10 HILARY HINSON MD Mar 08, 2019 15:31
[2019-03-08 15:46] LABS: MAGNESIUM LEVEL 2.2 MG/DL (1.8-2.4); PHOSPHORUS LEVEL 4.1 MG/DL (2.5-4.9)
[2019-03-08] MEDS: ACETAMINOPHEN TAB 650MG DOSE (2X325MG) PO PRN (16:41)
[2019-03-08] MEDS: PRAMIPEXOLE (MIRAPEX) 0.125 MG TAB PO SCH (20:45)
[2019-03-08] MEDS: ASPIRIN 81 MG ENTERIC TAB PO SCH (20:45)
[2019-03-08] MEDS: CETIRIZINE (ZyrTEC) 10 MG TAB PO SCH (20:45)
[2019-03-08] MEDS: MONTELUKAST 10 MG TAB PO SCH (20:45)
[2019-03-08] MEDS: FENOFIBRATE 145 MG TAB (TRICOR) PO SCH (20:45)
[2019-03-08] MEDS: LATANOPROST 0.005% OPHTH SOLN 2.5 ML OU SCH (20:46)
[2019-03-08 21:50] VITALS: BP 116/58
[2019-03-08] MEDS: traMADol 50 MG TAB PO PRN (23:37)
[2019-03-09] MEDS: HEPARIN SOD (PORCINE) 5000 UNITS/ML VIAL SC SCH ×2 (05:55→17:03)
[2019-03-09 06:40] VITALS: BP 158/73
[2019-03-09 06:56] LABS: HEMOGLOBIN 13.6 g/dl (13.5-17.5); MEAN CORPUSCULAR HEMOGLOBIN 31.1 pg (27.0-33.0); MEAN CORPUSCULAR HGB CONC 32.4 g/dl (32.0-36.5); MEAN CORPUSCULAR VOLUME 95.9 fl (80.0-96.0); PLATELET COUNT, AUTOMATED 289 10^3/uL (150-450); RED BLOOD COUNT 4.38 10^6/uL (4.30-6.10); WHITE BLOOD COUNT 7.9 10^3/uL (4.0-10.0)
[2019-03-09 07:25] LABS: BILIRUBIN,TOTAL 0.4 MG/DL (0.2-1.0); CALCIUM LEVEL 9.2 MG/DL (8.8-10.2); CREATININE FOR GFR 1.34 MG/DL (0.70-1.30); GLOMERULAR FILTRATION RATE 55.3 (>42); TOTAL PROTEIN 6.9 GM/DL (6.4-8.2)
[2019-03-09] MEDS: BUDESONIDE 0.5 MG/2 ML INHALATION SUSPENSION INH SCH ×2 (07:37→19:59)
[2019-03-09] MEDS: DOCUSATE SODIUM 100 MG CAP PO SCH ×3 (09:00→20:43)
[2019-03-09] MEDS: POTASSIUM CHLORIDE 10 MEQ SR TABLET PO SCH (09:27)
[2019-03-09] MEDS: FIBER-CON 625 MG TAB PO SCH ×2 (09:27→20:43)
[2019-03-09] MEDS: sulfaSALAzine 500 MG TABEC PO SCH (09:27)
[2019-03-09] MEDS: DONEPEZIL 5 MG TAB PO SCH (09:27)
[2019-03-09] MEDS: PREGABALIN 75 MG CAP(LYRICA) PO SCH ×3 (09:28→20:43)
[2019-03-09] MEDS: BUMETANIDE 1 MG TAB PO SCH (09:28)
[2019-03-09] MEDS: BACLOFEN 10 MG TAB PO SCH ×3 (09:28→20:43)
[2019-03-09] MEDS: MULTIVITAMINS/MINERALS THERAP 1 TAB PO SCH (09:28)
[2019-03-09] MEDS: hydroCHLOROthiazide 12.5 MG CAPSULE PO SCH (09:28)
[2019-03-09] MEDS: PANTOPRAZOLE 40MG TAB (PROTONIX) PO SCH (09:28)
[2019-03-09] MEDS: ASCORBIC ACID 500 MG TAB PO SCH (09:28)
[2019-03-09] MEDS: ALLOPURINOL 300 MG TAB PO SCH (09:28)
[2019-03-09] MEDS: guaiFENesin ER 600 MG TAB PO SCH ×2 (09:29→20:43)
[2019-03-09] MEDS: MAGNESIUM OXIDE 400 MG TAB (MAG-OX) PO SCH ×2 (09:29→20:43)
[2019-03-09] MEDS: SPIRONOLACTONE 50 MG TAB PO SCH ×2 (09:29→20:43)
[2019-03-09] MEDS: LOSARTAN 50 MG TAB PO SCH (09:29)
--- NOTE | 2019-03-09 13:45 | IPNPDOC ---
Date Seen The patient was seen on 03/09/19. Progress Note SUBJECTIVE: 73-year-old male with past medical history of obstructive sleep apnea, diabetes, hypertension, gout, COPD, chronic back pain and GERD was admitted for hip pain after he felt like he pulled his muscle. Upon further resignation with an MRI patient likely had a muscle strain/tear. He reports significant improvement in pain and mobility since yesterday, is working with physical therapy, was able to get out of bed into chair on his own today. He reports chronic low back pain due to severe disc disease, no acute changes. He has no other complaints at this time, denies shortness of breath, chest pain, nausea, vomiting, abdominal pain or diarrhea. 03/09/2019 Patient reports improvement in left hip pain, significant increase in mobility since admission, reports more confidence and decreased pain with activity. He has no additional complaints at this time, reports clinically close to baseline; denies shortness of breath, chest pain, vomiting, diarrhea or abdominal pain. 10 point review of systems negative except for above PHYSICAL EXAMINATION: VITAL SIGNS: Please see below. GENERAL: No distress HEENT: Normocephalic, atraumatic, moist mucous membranes NECK: Supple CARDIOVASCULAR EXAMINATION: S1, S2, no murmurs RESPIRATORY EXAMINATION: Diminished, distant, no wheezing ABDOMINAL EXAMINATION: Soft, nontender, nondistended, positive bowel sounds EXTREMITIES: Left lower extremity range of motion improved, lower extremity pitting edema. SKIN: No rash NEUROLOGICAL EXAMINATION: Alert and oriented 3, no focal deficits PSYCHIATRIC EXAMINATION: Calm and cooperative LABORATORY DATA, IMAGING STUDIES, MICROBIOLOGY: Please see below. DVT prophylaxis ordered?: Yes ASSESSMENT AND PLAN: 73-year-old male with past medical history of obstructive sleep apnea, diabetes, hypertension and chronic back pain, admitted for abductor longus strain/tear. PROBLEMS: 1. Left hip pain: . MRI showing possible abductor longus strain/tear. MRI of the lumbar spine concerning for arachnoiditis/meningitis. Orthopedic surgery following, spine surgeon kelly pending PT/OT kelly appreciated, will require home PT services, social work to arrange. 2. COPD: . Stable, continue home meds 3. Obstructive sleep apnea: Continue CPAP at night. 4. Hypertension. Continue home meds with hold parameters. 5. Gout. Continue allopurinol. DVT prophylaxis: Heparin subcutaneous. GI prophylaxis: Protonix VS, I&O, 24H, [place]ño Vital Signs/I&O Vital Signs Date Time Temp Pulse Resp B/P (MAP) Pulse Ox O2 Delivery O2 Flow Rate FiO2 03/09/19 09:29 158/73 03/09/19 06:40 98.6 95 20 100 03/07/19 04:21 Room Air I&O- Last 24 Hours up to 6 AM 03/09/19 06:00 Intake Total 2640 ml Output Total 1700 ml Balance 940 ml Laboratory Data 24H LABS Laboratory Tests 2 03/08/19 15:11: Phosphorus Level 4.1#, Magnesium Level 2.2 03/09/19 06:20: Nucleated Red Blood Cells % (auto) 0.0, Anion Gap 6L, Glomerular Filtration Rate 55.3, Calcium Level 9.2, Total Bilirubin 0.4, Aspartate Amino Transf (AST/SGOT) 30, Alanine Aminotransferase (ALT/SGPT) 21, Alkaline Phosphatase 50, Total Protein 6.9, Albumin 3.0L, Albumin/Globulin Ratio 0.77L CBC/BMP Laboratory Tests 03/09/19 06:20 HILARY HINSON MD Mar 09, 2019 13:45
[2019-03-09 14:38] VITALS: BP 116/70
[2019-03-09] MEDS: CETIRIZINE (ZyrTEC) 10 MG TAB PO SCH (20:43)
[2019-03-09] MEDS: FENOFIBRATE 145 MG TAB (TRICOR) PO SCH (20:43)
[2019-03-09] MEDS: MONTELUKAST 10 MG TAB PO SCH (20:43)
[2019-03-09] MEDS: ASPIRIN 81 MG ENTERIC TAB PO SCH (20:43)
[2019-03-09] MEDS: PRAMIPEXOLE (MIRAPEX) 0.125 MG TAB PO SCH (20:43)
[2019-03-09] MEDS: LATANOPROST 0.005% OPHTH SOLN 2.5 ML OU SCH (20:44)
[2019-03-09] MEDS: traMADol 50 MG TAB PO PRN (20:50)
[2019-03-09 21:27] VITALS: BP 114/68
[2019-03-10 05:38] VITALS: BP 142/70
[2019-03-10 06:41] LABS: HEMATOCRIT 42.5 % (42.0-52.0); HEMOGLOBIN 13.7 g/dl (13.5-17.5); MEAN CORPUSCULAR HEMOGLOBIN 30.9 pg (27.0-33.0); MEAN CORPUSCULAR HGB CONC 32.2 g/dl (32.0-36.5); MEAN CORPUSCULAR VOLUME 95.9 fl (80.0-96.0); PLATELET COUNT, AUTOMATED 288 10^3/uL (150-450); RED BLOOD COUNT 4.43 10^6/uL (4.30-6.10); WHITE BLOOD COUNT 9.3 10^3/uL (4.0-10.0)
[2019-03-10] MEDS: HEPARIN SOD (PORCINE) 5000 UNITS/ML VIAL SC SCH (06:49)
[2019-03-10 07:12] LABS: CALCIUM LEVEL 9.1 MG/DL (8.8-10.2); CREATININE FOR GFR 1.41 MG/DL (0.70-1.30); GLOMERULAR FILTRATION RATE 52.2 (>42); MAGNESIUM LEVEL 2.1 MG/DL (1.8-2.4); POTASSIUM SERUM 4.2 MEQ/L (3.5-5.1)
[2019-03-10] MEDS: BUDESONIDE 0.5 MG/2 ML INHALATION SUSPENSION INH SCH (07:53)
[2019-03-10] MEDS: MAGNESIUM OXIDE 400 MG TAB (MAG-OX) PO SCH (08:05)
[2019-03-10 08:06] VITALS: BP 149/69
[2019-03-10] MEDS: ASCORBIC ACID 500 MG TAB PO SCH (08:06)
[2019-03-10] MEDS: LOSARTAN 50 MG TAB PO SCH (08:06)
[2019-03-10] MEDS: BUMETANIDE 1 MG TAB PO SCH (08:06)
[2019-03-10] MEDS: FIBER-CON 625 MG TAB PO SCH (08:06)
[2019-03-10] MEDS: DOCUSATE SODIUM 100 MG CAP PO SCH (08:07)
[2019-03-10] MEDS: MULTIVITAMINS/MINERALS THERAP 1 TAB PO SCH (08:07)
[2019-03-10] MEDS: BACLOFEN 10 MG TAB PO SCH (08:07)
[2019-03-10] MEDS: ALLOPURINOL 300 MG TAB PO SCH (08:07)
[2019-03-10] MEDS: DONEPEZIL 5 MG TAB PO SCH (08:07)
[2019-03-10] MEDS: SPIRONOLACTONE 50 MG TAB PO SCH (08:07)
[2019-03-10] MEDS: POTASSIUM CHLORIDE 10 MEQ SR TABLET PO SCH (08:07)
[2019-03-10] MEDS: sulfaSALAzine 500 MG TABEC PO SCH (08:08)
[2019-03-10] MEDS: guaiFENesin ER 600 MG TAB PO SCH (08:08)
[2019-03-10] MEDS: PREGABALIN 75 MG CAP(LYRICA) PO SCH (08:08)
[2019-03-10] MEDS: hydroCHLOROthiazide 12.5 MG CAPSULE PO SCH (08:08)
[2019-03-10] MEDS: PANTOPRAZOLE 40MG TAB (PROTONIX) PO SCH (08:08)
--- NOTE | 2019-03-10 11:33 | DS.PDOC ---
Discharge Summary General Date of Admission Mar 06, 2019 at 20:40 Date of Discharge 03/10/2019 Attending Physician: HILARY HINSON MD Discharge Summary PROCEDURES PERFORMED DURING STAY: None. ADMITTING DIAGNOSES: 1. Left hip pain. DISCHARGE DIAGNOSES: 1. Abductor longus strain/tear. COMPLICATIONS/CHIEF COMPLAINT: Strain Of Abductor Muscle Of Thigh. HISTORY OF PRESENT ILLNESS: 73-year-old male with multiple medical comorbidities was admitted for left hip pain after he felt sharp pain while ambulating. Imaging was consistent with abductor longus strain/tear. Patient has been working with physical therapy with improvement in weightbearing status, activity, ambulation every day. He reports currently that he is back to his baseline activity level, able to ambulate without requiring PT. He reports the pain has sick dyspnea improved, range of motion is improved as well, previously was having significant pain with adduction and abduction of the left leg. Patient also had imaging of his lumbar spine which was concerning for chronic changes, was evaluated by his orthopedic surgeon, Dr. Lakhani, who reports no additional need for any intervention at this time, will follow up outpatient in his office. Patient was evaluated by PT who recommended home with home services, social work to arrange. Patient understands and agrees with discharge plan. HOSPITAL COURSE: As above. DISCHARGE MEDICATIONS: Please see below. ALLERGIES: Please see below. PHYSICAL EXAMINATION: VITAL SIGNS: Please see below. GENERAL: Obese, no distress HEENT: Normocephalic, atraumatic, moist mucous membranes NECK: Supple CARDIOVASCULAR EXAMINATION: S1, S2, no murmurs RESPIRATORY EXAMINATION: Distant, diminished, no wheezing ABDOMINAL EXAMINATION: Soft, nontender, nondistended, positive bowel sounds EXTREMITIES: Range of motion intact, bilateral lower extremity edema SKIN: No rash NEUROLOGICAL EXAMINATION: Alert and oriented 3, no focal deficits PSYCHIATRIC EXAMINATION: Calm and cooperative LABORATORY DATA: Please see below. IMAGING: MRI of left hip concerning for abductor longus strain/tear. MRI of lumbar spine with chronic spinal changes. PROGNOSIS: Guarded ACTIVITY: As tolerated. DIET: Cardiac with consistent carbs DISCHARGE PLAN: Issues follow-up with orthopedic surgeon. PCP within 1-2 weeks DISPOSITION: . DISCHARGE INSTRUCTIONS: 1. As above. DISCHARGE CONDITION: Stable. TIME SPENT ON DISCHARGE: Greater than 24 minutes. Vital Signs/I&Os Vital Signs Date Time Temp Pulse Resp B/P (MAP) Pulse Ox O2 Delivery O2 Flow Rate FiO2 03/10/19 08:06 149/69 03/10/19 05:38 97.0 70 20 92 NIPPV (BIPAP/CPAP) I&O- Last 24 Hours up to 6 AM 03/10/19 06:00 Intake Total 2040 ml Output Total 700 ml Balance 1340 ml Laboratory Data Labs 24H Laboratory Tests 2 03/10/19 06:25: Nucleated Red Blood Cells % (auto) 0.0, Anion Gap 6L, Glomerular Filtration Rate 52.2, Calcium Level 9.1, Phosphorus Level 4.0, Magnesium Level 2.1 CBC/BMP Laboratory Tests 03/10/19 06:25 Discharge Medications Scheduled Allopurinol (Zyloprim) 300 Mg Tab, 300 MG PO DAILY, (Reported) Ascorbic Acid (Vitamin C) 500 Mg Tab, 500 MG PO DAILY, (Reported) Aspirin (Aspirin EC) 81 Mg Tab, 81 MG PO QHS, (Reported) Baclofen (Baclofen) 10 Mg Tab, 10 MG PO TID, (Reported) Budesonide (Budesonide) 0.5 Mg/2 Ml Neb, 0.5 MG INH BID, (Reported) WITH BROVANA Bumetanide (Bumetanide) 1 Mg Tablet, 1 MG PO DAILY, (Reported) Calcium Polycarbophil (Calcium Polycarbophil) 625 Mg Tablet, 1,250 MG PO BID, (Reported) Cetirizine HCl (Cetirizine HCl) 10 Mg Tablet, 10 MG PO QHS, (Reported) Cyclosporine (Restasis) 0.05% Droperette, 1 DROP OU BID, (Reported) Donepezil HCl (Aricept) 10 Mg Tab, 10 MG PO DAILY, (Reported) Fenofibric Acid (Choline) (Fenofibric Acid) 135 Mg Cap, 135 MG PO QHS, (Reported) Glucosamine/D3/Boswellia Kasia (Osteo Bi-Flex Caplet) 1 Each Tablet, 2 TAB PO DAILY, (Reported) Guaifenesin (Mucinex) 600 Mg Tab.er.12h, 600 MG PO BID, (Reported) Latanoprost (Xalatan) 0.005% 2.5ML Drops, 1 DROP OU QHS, (Reported) Losartan/Hydrochlorothiazide (Losartan-Hctz 100-12.5 mg Tab) 1 Each Tablet, 1 TAB PO DAILY, (Reported) Magnesium Oxide (Magnesium Oxide) 400 Mg Tablet, 400 MG PO BID, (Reported) Mometasone Furoate Monohydrate (Nasonex) 120 [place]/17 Gm Naspr, 1 SPRAY NA BID, (Reported) Montelukast Sodium (Singulair) 10 Mg Tab, 10 MG PO QHS, (Reported) Multivitamins (Thera M Plus Tablet) 1 Tab Tab, 1 TAB PO DAILY, (Reported) Omeprazole (Omeprazole) 40 Mg Capsule.dr, 40 MG PO DAILY, (Reported) Potassium Chloride (Klor-Con M10) 10 Meq Tabcr, 10 MEQ PO DAILY, (Reported) Pramipexole Di-HCl (Mirapex) 0.125 Mg Tab, 0.125 MG PO QHS, (Reported) Pregabalin (Lyrica) 75 Mg Capsule, 75 MG PO TID, (Reported) Spironolactone (Spironolactone) 50 Mg Tab, 50 MG PO BID, (Reported) Sulfasalazine (Sulfasalazine) 500 Mg Tab, 1,000 MG PO DAILY, (Reported) Ubidecarenone (Co Q-10) 400 Mg Capsule, 400 MG PO DAILY, (Reported) Umeclidinium Brm/Vilanterol Tr (Anoro Ellipta 62.5-25 Mcg INH) 1 Each Blst.w.dev, 1 PUFF INH DAILY, (Reported) Vitamin B Complex (Vitamin B Complex) 1 Each Tablet, 1 TAB PO DAILY, (Reported) Scheduled PRN Acetaminophen (Acetaminophen) 500 Mg Tablet, 1,000 MG PO Q6H PRN for PAIN, (Reported) Lanolin Alcohol/Mo/W.pet/[place] (Eucerin Creme) 454 Gm Cream..g., 1 DOSE TOP QID PRN for PSORIASIS, (Reported) Tramadol HCl (Tramadol HCl) 50 Mg Tablet, 50 MG PO QID PRN for PAIN, (Reported) Allergies Coded Allergies: fluticasone (Verified Allergy, Unknown, 03/06/19) thiopental (Verified Allergy, Unknown, 03/07/19) HILARY HINSON MD Mar 10, 2019 11:33
== END 2019-03-10 14:30 | disposition home or self-care (01) | DRG 538 ==
LOC: M ED 20:39 → M ED INP 20:40 → OBSVTOIN 20:40 → M MS5PR 03-07 05:15
PROVIDERS: ADMIT Internal Medicine; ATTEND Internal Medicine
DX: S76.212A Strain of adductor muscle, fascia and tendon of left thigh, initial encounter (principal); Z79.82 Long term (current) use of aspirin; Z79.899 Other long term (current) drug therapy; Z88.8 Allergy status to other drugs, medicaments and biological substances; M54.5 Low back pain; J45.909 Unspecified asthma, uncomplicated; K21.9 Gastro-esophageal reflux disease without esophagitis; I10 Essential (primary) hypertension; E11.9 Type 2 diabetes mellitus without complications; E78.5 Hyperlipidemia, unspecified; K57.30 Diverticulosis of large intestine without perforation or abscess without bleeding; M10.9 Gout, unspecified; F03.90 Unspecified dementia, unspecified severity, without behavioral disturbance, psychotic disturbance, mood disturbance, and anxiety; L40.8 Other psoriasis; K27.9 Peptic ulcer, site unspecified, unspecified as acute or chronic, without hemorrhage or perforation; Z87.891 Personal history of nicotine dependence; G47.33 Obstructive sleep apnea (adult) (pediatric); Z96.651 Presence of right artificial knee joint; Z96.652 Presence of left artificial knee joint; Z96.612 Presence of left artificial shoulder joint; X50.1XXA Overexertion from prolonged static or awkward postures, initial encounter; Y92.009 Unspecified place in unspecified non-institutional (private) residence as the place of occurrence of the external cause

== ENCOUNTER → 2019-05-09 | Outpatient (CLI) | payer MEDICARE ==
[~2019-05-09] MED LIST changes: +ACET-683 PO; +ALL10TAB29 PO; +ANOR1AER INH; +BUME1TAB3 PO; +CALC625T15 PO; +CEFD300CAP PO; +CO Q400C2 PO; +EQL50TAB2 PO; +EUCECRE8 TOP; +LOSA100T8 PO; +LYRI75CA PO; +MAGN400T2 PO; +MUCI600T31 PO; +OMEP-172 PO; +OMEP-221 PO; -OMEP20CA4 PO; +OSTE5TAB PO; +TRAM50TA2 PO; +XALA0.007 OU
--- NOTE | 2019-05-09 18:41 | REP ---
PET/CT: History: Staging esophageal cancer. High grade adenocarcinoma on endoscopic biopsy May 01, 2019. Comparisons: Comparison PET-CT study November 19, 2011. TECHNIQUE: 67 minutes following the intravenous injection of a 9.50 mCi dose of F-18 FDG, three-dimensional PET scintigraphy is acquired from the skull base to the proximal thighs. Triplanar noncontrast CT scanning is acquired through the same anatomic range for attenuation correction, and image registration with scan parameters optimized to minimize radiation exposure to the patient. PET scintigraphy and CT datasets were fused and displayed on a workstation with multiplanar and projection display capability. PET/CT Findings: The patient's known large distal esophageal mass is markedly hypermetabolic, maximum standard uptake value is 29.95. This measures approximately 5 cm in greatest transverse dimension and is somewhat elongate. There is no other abnormal hypermetabolic uptake in the chest abdomen pelvis or head and neck region. No abnormal martita uptake is seen. No hepatic abnormality is seen. There is no visible upper abdominal hypermetabolic adenopathy. No pulmonary parenchymal hypermetabolic uptake is seen. Impression: The patient's known malignant distal esophageal mass is large and markedly hypermetabolic. No other abnormal hypermetabolic uptake is seen. Electronically Signed by Rashard Hill MD 05/09/2019 07:10 P
== END ==
LOC: M PLARAD 12:12
PROVIDERS: ATTEND Internal Medicine Medical Oncology
DX: C15.5 Malignant neoplasm of lower third of esophagus (principal)
CPT/HCPCS: 78815; A9552

== ENCOUNTER → 2019-05-26 | Outpatient (CLI) | payer MEDICARE ==
[~2019-05-26] VITALS: Ht 175.3 cm; Wt 138.8 kg
[~2019-05-26] MED LIST changes: +CBD OIL PO; +ISOVUE-300 61% 50ML VIAL (Q9967) As Ordered ONE; +LIDOCAINE 1% MDV 20ML VIAL As Ordered ONE; +MIDAZOLAM INJ 2 MG/2 ML VIAL (J2250) As Ordered ONE; +ceFAZolin 1GM INJ (J0690 PER 500MG) As Ordered ONE; +diphenhydrAMINE INJ 50MG/ML VIAL (J1200) As Ordered ONE; +fentaNYL 100 MCG/2 ML INJECTION (J3010) As Ordered ONE
--- NOTE | 2019-05-26 09:31 | IRHP ---
[facility] IR Pre-Procedure H & P General Date of Service: May 26, 2019 Procedure: Same Day Surgery Interval History and Physical I have seen the patient and reviewed last H & P performed within 30 days. There is no significant interval change. History of Present Illness Chief Complaint The patient is a 73-year-old male admitted with a reason for visit of [place] Neopl Of 3RD Lower Esophagus. PRE-PROCEDURE DIAGNOSIS: esophageal cancer HEART: normal rate. LUNGS: normal breathing at rest. ASA Classification ASA Classification: III-Severe systemic dis. Mallampati Score: III NPO: Yes Problems with prior sedation: No Obstructive Sleep Apnea: Yes Plan moderate sedation Allergies Coded Allergies: fluticasone (Verified Allergy, Unknown, 03/06/19) thiopental (Verified Allergy, Unknown, 03/07/19) Home Medications Scheduled Allopurinol (Zyloprim), 300 MG PO DAILY, (Reported) Ascorbic Acid (Vitamin C), 500 MG PO DAILY, (Reported) Aspirin (Aspirin EC), 81 MG PO QHS, (Reported) Baclofen (Baclofen), 10 MG PO TID, (Reported) Budesonide (Budesonide), 0.5 MG INH BID, (Reported) Bumetanide (Bumetanide), 1 MG PO DAILY, (Reported) Calcium Polycarbophil (Calcium Polycarbophil), 1,250 MG PO BID, (Reported) Cetirizine HCl (Cetirizine HCl), 10 MG PO QHS, (Reported) Cyclosporine (Restasis), 1 DROP OU BID, (Reported) Donepezil HCl (Aricept), 10 MG PO DAILY, (Reported) Fenofibric Acid (Choline) (Fenofibric Acid), 135 MG PO QHS, (Reported) Glucosamine/D3/Boswellia Kasia (Osteo Bi-Flex Caplet), 2 TAB PO DAILY, (Reported) Guaifenesin (Mucinex), 600 MG PO BID, (Reported) Latanoprost (Xalatan), 1 DROP OU QHS, (Reported) Losartan/Hydrochlorothiazide (Losartan-Hctz 100-12.5 mg Tab), 1 TAB PO DAILY, (Reported) Magnesium Oxide (Magnesium Oxide), 400 MG PO BID, (Reported) Mometasone Furoate Monohydrate (Nasonex), 1 SPRAY NA BID, (Reported) Montelukast Sodium (Singulair), 10 MG PO QHS, (Reported) Multivitamins (Thera M Plus Tablet), 1 TAB PO DAILY, (Reported) Omeprazole (Omeprazole), 40 MG PO DAILY, (Reported) Potassium Chloride (Klor-Con M10), 10 MEQ PO DAILY, (Reported) Pramipexole Di-HCl (Mirapex), 0.125 MG PO QHS, (Reported) Pregabalin (Lyrica), 75 MG PO TID, (Reported) Spironolactone (Spironolactone), 50 MG PO BID, (Reported) Sulfasalazine (Sulfasalazine), 1,000 MG PO DAILY, (Reported) Ubidecarenone (Co Q-10), 400 MG PO DAILY, (Reported) Umeclidinium Brm/Vilanterol Tr (Anoro Ellipta 62.5-25 Mcg INH), 1 PUFF INH DAILY, (Reported) Vitamin B Complex (Vitamin B Complex), 1 TAB PO DAILY, (Reported) Scheduled PRN Acetaminophen (Acetaminophen), 1,000 MG PO Q6H PRN for PAIN, (Reported) Lanolin Alcohol/Mo/W.pet/[place] (Eucerin Creme), 1 DOSE TOP QID PRN for PSORIASIS, (Reported) Tramadol HCl (Tramadol HCl), 50 MG PO QID PRN for PAIN, (Reported) Discontinued Medications Cefdinir (Cefdinir), 300 MG PO BID, (Reported) Discontinued Reason: Pt states not taking VS, I&O, 24H, Fishbone Vital Signs/I&O Vital Signs Date Time Temp Pulse Resp B/P (MAP) Pulse Ox O2 Delivery O2 Flow Rate FiO2 05/26/19 09:20 68 18 98 Nasal Cannula 2 05/26/19 07:25 99.1 MYRON PEREZ MD May 26, 2019 09:31
--- NOTE | 2019-05-26 09:33 | POST-OPPD ---
Postoperative Procedure Note Date Of Procedure: May 26, 2019 Time Of Procedure: 09:31 PREOPERATIVE DIAGNOSIS: esophageal cancer POSTOPERATIVE DIAGNOSIS: same FINDINGS: patent right IJ PROCEDURE: right side port placed. ready to use SURGEON: andria ANESTHESIA: mod sed ESTIMATED BLOOD LOSS: < 5 ml COMPLICATIONS: none POSTOPERATIVE CONDITION: stable MYRON PEREZ MD May 26, 2019 09:33
[2019-05-26 10:45] VITALS: BP 141/68
--- NOTE | 2019-05-26 13:59 | REP ---
IR Ultrasound and fluoroscopy-guided port placement. IR Ultrasound of the neck. IR Moderate sedation. Clinical information: esophageal cancer. Physician: Dr. Renae. Procedure: The patient was advised of the benefits, risks, and alternatives of the procedure and informed consent was obtained. A time-out was performed with verification of the patient's name, MRN, site of procedure and type of procedure to be performed. The patient was positioned in the supine position on the angiographic table. The site was prepped and draped in the usual sterile fashion. Moderate sedation was performed by the physician including the presence of an independent trained observer who assisted and monitored the patient's level of consciousness and physiologic status. Following the administration of Fentanyl and Versed, the physician spent 45 minutes of continuous face to face time with the patient. Ultrasound of the neck reveals a patent and compressible right internal jugular vein. A defense travel administrator radiograph reveals no gross abnormality. The neck and anterior chest wall were anesthetized with lidocaine. The right internal jugular vein was accessed using a microintroducer needle under ultrasound guidance, via a lateral approach. An 018 wire was advanced into the superior vena cava, the needle was removed and a microsheath was placed. An Amplatz wire was then passed into the inferior vena cava. An incision at the internal jugular vein access site and anterior chest wall were made using a scalpel. An incision was made at the anterior chest wall. A small pocket was created using a combination of blunt and sharp dissection. A tunneling device was then used to pass the catheter from the pocket to the neck puncture site. An 8-Kazakh Angio dynamics Smart power port was then positioned in the pocket. The catheter was then measured and cut. The introducer sheath was exchanged for a peel-away sheath. The catheter was passed through the peel-away sheath into the internal jugular vein and the peel-away sheath was removed. The port tip was positioned at the cavoatrial junction. The port was then accessed with a Woods needle. The port flushes and aspirates well. The puncture site in the neck was closed. The chest wall incision was then closed with 2-0 Vicryl and 4-0 Monocryl. Glue and Steri-Strips were applied. A sterile dressing was then applied. The patient tolerated the procedure well and was returned to the PRU in stable condition. Estimated blood loss: <5 ml. Complications: None. Conclusion: 1. Successful placement of an 8-Kazakh Angiodynamics smart power port via the right internal jugular vein. The port is ready for immediate use. 2. Patient to follow up in IR clinic in 2 weeks. Thank you for this referral. Electronically Signed by Racheal Renae MD 05/26/2019 01:58 P
== END ==
LOC: M IRPRO 06:45
PROVIDERS: ATTEND Internal Medicine Hematology & Oncology
DX: C15.5 Malignant neoplasm of lower third of esophagus (principal)
CPT/HCPCS: 36561; 99152; 99153; C1769; C1788; C1887; C1894; J0690; J1200; J2250; J3010

== ENCOUNTER → 2019-05-26 | Outpatient (CLI) | payer MEDICARE ==
[~2019-05-26] MED LIST changes: -ISOVUE-300 61% 50ML VIAL (Q9967) As Ordered ONE; -LIDOCAINE 1% MDV 20ML VIAL As Ordered ONE; -MIDAZOLAM INJ 2 MG/2 ML VIAL (J2250) As Ordered ONE; -ceFAZolin 1GM INJ (J0690 PER 500MG) As Ordered ONE; -diphenhydrAMINE INJ 50MG/ML VIAL (J1200) As Ordered ONE; -fentaNYL 100 MCG/2 ML INJECTION (J3010) As Ordered ONE
--- NOTE | 2019-05-29 09:28 | RADONC ---
RADIATION ONCOLOGY CONSULTATION NOTE DATE: 05/26/2019 CHART NUMBER: [id number] DIAGNOSIS: Lower esophageal cancer. STAGE: X, Tx, M0, N0, grade 3. ECOG PERFORMANCE STATUS: 0 CONSULTATION NOTE: Mr. Dixon is a very pleasant 73-year-old white male with the diagnosis of a high-grade adenocarcinoma of the distal esophagus/GE junction who is presenting to us today for discussion of possible preoperative external beam radiation therapy combined with chemotherapy as a therapeutic option. HISTORY OF PRESENT ILLNESS: The patient was in his usual health until recently when he began noticing food getting stuck in his esophagus at the level of the sternum. He underwent EGD and was found to have a mass in the distal esophagus near the GE junction. The mass was large and ulcerating with no bleeding present. It was found in the lower third of the esophagus from 31 cm to 38 cm from the incisors. The mass was partially obstructing and partially circumferential. It involved two-thirds of the lumen circumference. Biopsy was undertaken and pathology revealed a high-grade adenocarcinoma. Biopsy was done on 04/28/2019. The patient was subsequently seen at [facility] in [place] for discussion of operability. It was recommended there to undergo concurrent chemotherapy as well as radiation therapy followed by possible surgery. He has been referred to me for initiation of preoperative radiation therapy. PAST MEDICAL HISTORY: The patient's past medical history is positive for arthritis, emphysema, type 2 diabetes, chronic kidney disease, COPD, bilateral total knee replacement surgeries, left shoulder replacement surgery, spinal stenosis, sleep apnea with the use a CPAP, and gout. He also has had cataracts. He had bilateral carpal tunnel surgery. He also had an inguinal hernia repair. ALLERGIES: The patient is allergic to SODIUM PENTOTHAL and FLUTICASONE. FAMILY HISTORY: The patient's family history is positive for a father with gallbladder cancer. REVIEW OF SYSTEMS: The patient's review of systems is positive for some difficulty swallowing dry, hard foods as well as some hearing loss requiring hearing aids. It is otherwise noncontributory. Denies nausea, vomiting, fevers, chills, night sweats, diplopia, headaches, anxiety or depression, anorexia, weight loss, visual disturbances, chest pain, urinary or bowel difficulties, bone pain, or neurological problems. PHYSICAL EXAMINATION: The patient is a 308 pound white male in no acute distress. HEENT exam is normocephalic, atraumatic. Extraocular movements are intact. There is no palpable cervical, supraclavicular, infraclavicular, axillary, or inguinal lymphadenopathy present. Lungs are clear to auscultation and percussion. Heart has a regular rate and rhythm. Abdomen is benign with no hepatosplenomegaly, masses, or tenderness. Rectal examination reveals a normal anal sphincter tone. Skeletal examination reveals no tenderness to pressure or percussion of the bony skeleton. Extremities reveal no clubbing, cyanosis, or edema. Neurologic exam is grossly intact, as is the remainder of the physical examination. ASSESSMENT: I believe this patient may be a candidate for preoperative radiation therapy and chemotherapy. I have discussed with the patient in detail the potential benefits as well as possible acute and chronic sequelae of external beam radiation therapy. We discussed logistics of treatment planning, simulation and subsequent fractionated daily radiation treatments. I have scheduled the patient for simulation and initiation of treatment planning. The patient had been seen by a medical oncologist, who recommended placement of a feeding tube. At this time however, after lengthy discussion, the patient is able to swallow everything and indeed is having no real difficulties. I informed him that swallowing may get somewhat more difficult with the initiation of radiation but at this time I believe we can initiate treatment without placement of any type of feeding device at this point. He is swallowing solid foods and we will follow him closely for that issue. I will be coordinating his care with his medical oncologist, and once he has completed therapy he will be reevaluated at [facility] for possible surgery. Thank you for allowing us to participate in the care of this very pleasant gentleman. If I could be of any further assistance or provide you with any information, please free to contact me anytime, As always, warm regards. cc: Patricia Reyes MD [facility]
== END ==
LOC: M ONCR 11:10
PROVIDERS: ATTEND Radiology Radiation Oncology
DX: C15.5 Malignant neoplasm of lower third of esophagus (principal)

== ENCOUNTER → 2019-06-13 | Outpatient (POV) | payer MEDICARE ==
[~2019-06-13] VITALS: Ht 175.3 cm; Wt 140.0 kg
[~2019-06-13] MED LIST changes: -OMEP-172 PO; +OMEP1CAP73 PO; +ONDA-196 PO; +PROC10TA4 PO; -VALS320T PO; +VALS320T2 PO
[2019-06-13 09:20] VITALS: BP 148/67
--- NOTE | 2019-06-14 08:09 | IRPN ---
[facility] IR Progress Note IR Progress Note DATE: Jun 13, 2019 FOLLOW-UP: Few weeks status post right chest port placement. Patient doing well. No fevers or chills. Port to be accessed today. ON EXAMINATION: Port site looks almost healed. Clean, soft nontender. No redness or discharge. IMPRESSION: Doing well status post port placement. No further follow-up scheduled unless initiated by patient or infusion. Thank you for this referral Allergies Coded Allergies: fluticasone (Verified Allergy, Unknown, 03/06/19) thiopental (Verified Allergy, Unknown, 03/07/19) VS,Fishbone, I+O VS, Fishbone, I+O Vital Signs Date Time Temp Pulse Resp B/P (MAP) Pulse Ox O2 Delivery O2 Flow Rate FiO2 06/13/19 09:20 98.0 69 18 148/67 (94) 95 Room Air MYRON PEREZ MD Jun 14, 2019 08:09
== END ==
LOC: M IRPOV 09:12
PROVIDERS: ATTEND Radiology Diagnostic Radiology
DX: Z45.2 Encounter for adjustment and management of vascular access device (principal)

== ENCOUNTER → 2019-06-23 | Outpatient (RCR) | payer MEDICARE ==
--- NOTE | 2019-06-07 08:22 | RADONC ---
RADIATION ONCOLOGY SIMULATION NOTE DATE: 06/06/2019 CHART NUMBER: [id number] SIMULATION NOTE: Mr. Caba was taken to the CT scan for CT simulation of his esophageal and gastric field. CT was accomplished without difficulty or discomfort. Radiation treatment planning is underway and radiation treatments will begin subsequently. An immobilization device was created and will be used throughout the course of treatment. It was created without difficulty or discomfort. I was physically present throughout the course of CT simulation.
--- NOTE | 2019-06-20 15:32 | RADONC ---
RADIATION ONCOLOGY PROGRESS NOTE DATE: 06/19/2019 CHART NUMBER: [id number] PROGRESS NOTE: Mr. Caba is presently at a dose of 900 cGy to his esophagus and is tolerating treatments quite well at this point with no complaints related to his radiation therapy. He is having no difficulty swallowing and nauseousness. REVIEW OF SYSTEMS: The patient's review of systems is noncontributory. Denies nausea, vomiting, fevers, chills, night sweats, diplopia, headaches, anxiety or depression, anorexia, weight loss, visual disturbances, chest pain, urinary or bowel difficulties, bone pain, or neurological problems. PHYSICAL EXAMINATION: The patient's skin is in good condition with no evidence of radiation change present. There is no moist or dry desquamation. The remainder of his physical exam remains unchanged. Mr. Caba is tolerating treatments quite well and radiation will continue as scheduled.
== END ==
LOC: M ONCR 06-06 10:13
PROVIDERS: ATTEND Radiology Radiation Oncology
DX: C15.5 Malignant neoplasm of lower third of esophagus (principal)

== ENCOUNTER 2019-07-19 09:43 | Outpatient (RCR) | payer MEDICARE ==
--- NOTE | 2019-06-26 12:41 | RADONC ---
RADIATION ONCOLOGY PROGRESS NOTE: DATE: 06/26/2019 CHART NUMBER: [id number] Mr. Caba is presently at a dose of 1800 cGy to his esophagus and is tolerating treatments quite well at this point with no significant difficulties related to his radiation therapy. He is having no increased difficulty swallowing or other real problems. REVIEW OF SYSTEMS: The patient's review of systems is noncontributory. He denies nausea, vomiting, fevers, chills, night sweats, diplopia, headaches, anxiety or depression, anorexia, weight loss, visual disturbances, chest pain, urinary or bowel difficulties, bone pain, or neurological problems. PHYSICAL EXAMINATION: The patient's skin is in good condition with no evidence of moist or dry desquamation. The remainder of his physical exam remains unchanged. Mr. Caba is tolerating treatments quite well and radiation will continue as scheduled.
--- NOTE | 2019-07-03 11:01 | RADONC ---
RADIATION ONCOLOGY DATE: 07/03/2019 CHART NUMBER: [id number] Mr. Caba has CA of the esophagus currently on simultaneous RT. So far, he has received a dose of 20 cGy. He is tolerating treatments every well. He has no complaints. He has no problem with the swallowing. REVIEW OF SYSTEMS: Noncontributory. He denies nausea, vomiting, chills, headache, anorexia, weight loss. PHYSICAL EXAMINATION: Patient is in good general condition. There is no evidence of skin changes due to radiation therapy. The remainder of his physical examination is unchanged. PLAN/RECOMMENDATION: He is tolerating treatment well. He will continued treatment as planned.
--- NOTE | 2019-07-11 09:56 | RADONC ---
RADIATION ONCOLOGY DATE OF SERVICE: 07/10/2019 CHART NUMBER: [id number]. Mr. Caba is carrying diagnosis of CA of esophagus. He is currently on simultaneous chemo RT. So far, he has received a dose of 3240 cGy. Is tolerating treatment well without unusual side effects. He is on soft food diet. So far, he has no problem with soft food diet. His usual weight is 310-315 pounds. He has lost about 10 pounds since start of treatment. REVIEW OF SYSTEMS: He denies nausea, vomiting, chills, headache, anorexia. Weight as mentioned about 10 pounds. His swallowing is improved. He has lost about 10 pounds since diagnosis of treatment. PHYSICAL EXAMINATION: Is obese. Not in apparent distress. He weighs 300.8 pounds today. Blood pressure is 137/73. Pulse 83. Respiration 18. Temperature 98. O2 saturation is 96% in room air. There is no palpable lymphadenopathy in the neck. There is mild to moderate degree of skin erythema in the right posterior chest with some itching. I advised use of hydrocortisone cream. ASSESSMENT AND THE RECOMMENDATION: Mr. Caba who carries the diagnosis of CA of esophagus is currently on simultaneous chemo RT. So far, he has received dose of 3240 cGy in 180 cGy daily fractions. His swallowing is somewhat improved. He has no problem swallowing soft food. He was advised continuous treatment. Will continue as planned. MTDD
--- NOTE | 2019-07-18 09:37 | RADONC ---
RADIATION ONCOLOGY PROGRESS NOTE DATE: 07/17/2019 CHART NUMBER: [id number] Mr. Caba is presently at a dose of 4140 cGy to his esophagus and is tolerating treatments quite well at this point with no significant difficulties related to his radiation therapy other than the some mild esophagitis. The patient's review of systems is positive for some esophagitis but is otherwise noncontributory. He denies nausea, vomiting, fevers, chills, night sweats, diplopia, headaches, anxiety or depression, anorexia, weight loss, visual disturbances, chest pain, urinary or bowel difficulties, bone pain, or neurological problems. PHYSICAL EXAMINATION: The patient's skin is in good condition with no evidence of moist or dry desquamation. The remainder of his physical exam remains unchanged. Mr. Caba is tolerating treatments quite well and radiation will continue as scheduled.
[~2019-07-19] VITALS: Ht 172.7 cm; Wt 140.6 kg
--- NOTE | 2019-07-20 10:53 | RADONC ---
RADIATION ONCOLOGY TREATMENT SUMMARY DATE OF SERVICE: 07/19/2019 CHART NUMBER: [id number]. DIAGNOSIS: Lower esophageal cancer. STAGE: X, TX, N0, M0, grade 3. ECOG PERFORMANCE STATUS: 0. TREATMENT SUMMARY: Mr. Caba is a very pleasant 73-year-old white male with the diagnosis of a high-grade adenocarcinoma of the distal esophagus - GE junction who presented to us for discussion of possible preoperative external beam radiation therapy combined with chemotherapy as a therapeutic option. We treated the patient to his esophagus for a total dose of 4500 cGy delivered in 25 fractions of 180 cGy each over 36 elapsed days from 06/13/2019 through 07/19/2019. The patient's esophagus was treated on the linear accelerator utilizing a 15 MV photon beam via 3-D conformal therapy. Mr. Caba tolerated his treatments quite well and was able to complete therapy as prescribed. I have scheduled the patient to see me again in 1 month for further followup. He will also continue to be followed by his other physicians, as well. He is scheduled to be seen again at [facility], where further workup and scheduling of his surgery is planned. cc: Patricia Reyes MD [facility]
== END 2019-07-22 ==
LOC: M ONCR 09:43
PROVIDERS: ATTEND Radiology Radiation Oncology
DX: C15.5 Malignant neoplasm of lower third of esophagus (principal)

== ENCOUNTER → 2019-08-01 | Outpatient (CLI) | payer MEDICARE ==
--- NOTE | 2019-08-01 17:24 | REP ---
PET/CT: History: Restaging esophageal carcinoma. Comparisons: Comparison PET-CT study April. TECHNIQUE: 63 minutes following the intravenous injection of a 9.03 mCi dose of F-18 FDG, three-dimensional PET scintigraphy is acquired from the skull base to the proximal thighs. Triplanar noncontrast CT scanning is acquired through the same anatomic range for attenuation correction, and image registration with scan parameters optimized to minimize radiation exposure to the patient. PET scintigraphy and CT datasets were fused and displayed on a workstation with multiplanar and projection display capability. PET/CT Findings: The patient's known malignant distal esophageal mass is much improved in size. It remains hypermetabolic although the avidity has improved as well, previously 29.9, today 8.14 maximum SUV. No other significant hypermetabolic uptake is appreciated. No abnormal uptake is seen in the low density left adrenal nodule. This adrenal nodule is unchanged from February 15, [address] and is consistent with an adenoma. No abnormal pulmonary parenchymal hypermetabolic uptake is seen. No evidence of adenopathy is observed. No abnormal hypermetabolic uptake is seen within the liver or elsewhere in the abdomen and pelvis. Impression: The previously noted bulky distal esophageal hypermetabolic mass has improved in size and avidity. No other abnormal hypermetabolic uptake is seen. Electronically Signed by Rashard Hill MD 08/01/2019 05:45 P
== END ==
LOC: M PLARAD 10:09
PROVIDERS: ATTEND Internal Medicine Hematology & Oncology
DX: C15.5 Malignant neoplasm of lower third of esophagus (principal)
CPT/HCPCS: 36591; 78815; 82728; 83550; A9552; J1642

== ENCOUNTER 2019-10-25 21:38 | Inpatient (IN) | payer MEDICARE ==
[~2019-10-25] VITALS: Ht 172.7 cm; Wt 130.6 kg
[2019-10-25] MEDS: FENOFIBRATE 145 MG TAB (TRICOR) PO SCH (05:20)
[2019-10-25] MEDS: CETIRIZINE (ZyrTEC) 10 MG TAB PO SCH (05:20)
[2019-10-25] MEDS: MONTELUKAST 10 MG TAB PO SCH (05:20)
[2019-10-25] MEDS: LATANOPROST 0.005% OPHTH SOLN 2.5 ML OU SCH (05:20)
[2019-10-25] MEDS: PRAMIPEXOLE (MIRAPEX) 0.125 MG TAB PO SCH (05:20)
[~2019-10-25 21:38] MED LIST changes: -BUDE0.5S6 INH; +BUDE0.5S6 NEB; +DICL50TAB PO; -MOME50SP; +MOME50SP NARES; +ONDA8TAB10 PO; +VITA-243 PO; -VITA500T PO
--- NOTE | 2019-10-25 22:37 | REPVR ---
PROCEDURE INFORMATION: Exam: CT Head Without Contrast Exam date and time: 10/25/2019 10:21 PM Age: 74 years old Clinical indication: Altered mental status/memory loss; Confusion or disorientation TECHNIQUE: Imaging protocol: Computed tomography of the head without contrast. Radiation optimization: All CT scans at this facility use at least one of these dose optimization techniques: automated exposure control; mA and/or kV adjustment per patient size (includes targeted exams where dose is matched to clinical indication); or iterative reconstruction. COMPARISON: CT HEAD W/O CONTRAST - OUTSIDE PRIOR 2018-10-03 09:36 FINDINGS: Brain: Diffuse mild cerebral age related volume loss. Mild patchy low attenuation in the white matter compatible with mild chronic small vessel ischemic disease. No midline shift, mass, fluid collection, or evidence of hemorrhage. 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 Ventricles: Ventricular enlargement proportional to volume loss. Bones/joints: Unremarkable. No acute fracture. Sinuses: Visualized sinuses are unremarkable. No fluid levels. Mastoid air cells: Visualized mastoid air cells are well aerated. Soft tissues: Unremarkable. IMPRESSION: Mild involutional changes, no acute intracranial abnormality. Electronically signed by: Christopher Snowden On 10/25/2019 22:37:16 PM
[2019-10-25 22:54] LABS: BASO # 0.1 10^3/uL (0.0-0.2); BASO % 0.3 % (0.0-1.0); EOS # 0.1 10^3/uL (0.0-0.5); EOS % 0.6 % (0.0-3.0); HEMATOCRIT 35.9 % (42.0-52.0); HEMOGLOBIN 11.4 g/dl (13.5-17.5); LYMPH # 0.8 10^3/uL (1.5-5.0); LYMPH % 4.7 % (24.0-44.0); MEAN CORPUSCULAR HEMOGLOBIN 32.7 pg (27.0-33.0); MEAN CORPUSCULAR HGB CONC 31.8 g/dl (32.0-36.5); MEAN CORPUSCULAR VOLUME 102.9 fl (80.0-96.0); MONO # 0.9 10^3/uL (0.0-0.8); MONO % 5.5 % (0.0-5.0); NEUTROPHILS # 14.1 10^3/uL (1.5-8.5); NEUTROPHILS % 88.1 % (36.0-66.0); PLATELET COUNT, AUTOMATED 323 10^3/uL (150-450); RED BLOOD COUNT 3.49 10^6/uL (4.30-6.10); WHITE BLOOD COUNT 15.9 10^3/uL (4.0-10.0)
[2019-10-25 22:55] LABS: VENOUS BASE EXCESS -3.8 (-2.0-2.0); VENOUS HCO3 21.6 MEQ/L (23.0-27.0); VENOUS O2 SATURATION 92.7 % (60.0-80.0); VENOUS PARTIAL PRESSURE CO2 40.3 mmHg (38.0-50.0); VENOUS PARTIAL PRESSURE O2 70.1 mmHg (30.0-50.0); VENOUS PH 7.347 UNITS (7.330-7.430); VENOUS STANDARD HCO3 21.3 MEQ/L; VENOUS TOTAL CO2 22.8 MEQ/L (24.0-28.0)
[2019-10-25 23:46] LABS: OSMOLALITY SERUM 309 MOSM/KG (280-301)
[2019-10-25 23:49] LABS: ALBUMIN 3.1 GM/DL (3.2-5.2); ALT/SGPT 53 U/L (12-78); BILIRUBIN,DIRECT 0.2 MG/DL (0.0-0.2); BILIRUBIN,TOTAL 0.5 MG/DL (0.2-1.0); BLOOD UREA NITROGEN 40 MG/DL (7-18); CALCIUM LEVEL 9.6 MG/DL (8.8-10.2); CARBON DIOXIDE LEVEL 24 MEQ/L (21-32); CHLORIDE LEVEL 110 MEQ/L (98-107); CK-MB VALUE MASS 1.8 NG/ML (<3.6); CPK CREATINE PHOSPHOKINASE 135 U/L (39-308); CREATININE FOR GFR 1.78 MG/DL (0.70-1.30); GLOMERULAR FILTRATION RATE 39.8 (>42); GLUCOSE, FASTING 116 MG/DL (70-100); MB/CK RELATIVE INDEX 1.33 (< OR =4); NT-PRO BNP 570 PG/ML (<450); SODIUM LEVEL 142 MEQ/L (136-145); THYROID STIMULATING HORMONE 0.623 uIU/ML (0.358-3.740); TOTAL PROTEIN 6.8 GM/DL (6.4-8.2); TROPONIN I < 0.02 NG/ML (< 0.10)
[2019-10-26] VITALS (8 sets, daily range): BP systolic 110–151; BP diastolic 55–70
[2019-10-26] MEDS ORDERED: NS 500 ML IV ONE (01:15)
[2019-10-26] MEDS ORDERED: DICL75TA PO (02:26)
[2019-10-26] MEDS ORDERED: BROV15NE NEB (02:26)
[2019-10-26] MEDS ORDERED: LOSA100T50 PO (02:26)
[2019-10-26] MEDS ORDERED: traMADol 50 MG TAB PO PRN (03:15)
[2019-10-26] MEDS ORDERED: MOM 30ML SUSPENSION UDC PO PRN (03:15)
[2019-10-26] MEDS ORDERED: ACETAMINOPHEN TAB 650MG DOSE (2X325MG) PO PRN (03:15)
[2019-10-26] MEDS ORDERED: PROCHLORPERAZINE 5 MG TAB (S0183) PO PRN (03:15)
[2019-10-26] MEDS ORDERED: MAALOX 30 ML SUSP *UDC PO PRN (03:15)
[2019-10-26] MEDS ORDERED: ONDANSETRON 4 MG TAB PO PRN (03:15)
[2019-10-26] MEDS ORDERED: GLUCAGON INJ 1MG VIAL SC PRN (03:30)
[2019-10-26] MEDS ORDERED: DEXTROSE 50% 50 ML SYRINGE IV PRN (03:30)
[2019-10-26] MEDS ORDERED: GLUCOSE 4GM CHEW TABLET PO PRN (03:30)
--- NOTE | 2019-10-26 03:35 | HPEPDOC ---
General Date of Admission Date of Service: Oct 26, 2019 Chief Complaint The patient is a 74-year-old male admitted with a reason for visit of Dizziness/Weakness. Source: Patient Exam Limitations: No limitations Timing/Duration: Other (this morning) Severity: Other (, not applicable) Associated Symptoms: Other (multiple vague complaints including slurred speech, dizziness, weakness, blurred vision, rambling when talking dropping things from his hand trouble with his gait) History of Present Illness This is a [age] years old white male with past medical history of chronic back pain, COPD, asthma, obstructive sleep apnea, GERD, hypertension, type 2 diabetes mellitus, hypokalemia, hyperlipidemia, diverticulosis, peptic ulcer disease, gout, psoriasis, dementia, cataracts with dry eyes syndrome, arthritis with frequent admissions to this hospital, came back again today with complaining of multiple complaints including slurred speech, dizziness, weakness, blurry vision, rambling when talking and also dropping things from his hands since 945 yesterday evening. When patient examined in the emergency room. He is a completely asymptomatic. Offers no complaints of any neuro deficits, chest pain, shortness of breath, nausea, vomiting, diarrhea. I was asked by ED to admit patient to observation for dehydration and possibly needs a physical therapy evaluation. Home Medications Scheduled Allopurinol (Zyloprim) 300 Mg Tab, 300 MG PO DAILY, (Reported) Arformoterol Tartrate (Brovana) 15 Mcg/2 Ml Vial.neb, 1 VIAL NEB BID, (Reported) MIX WITH BUDESONIDE Ascorbic Acid (Vitamin C) 500 Mg Tab, 500 MG PO DAILY, (Reported) Aspirin (Aspirin EC) 81 Mg Tab, 81 MG PO DAILY, (Reported) Baclofen (Baclofen) 10 Mg Tab, 10 MG PO TID, (Reported) Budesonide (Budesonide) 0.5 Mg/2 Ml Neb, 1 VIAL NEB BID, (Reported) WITH BROVANA Bumetanide (Bumetanide) 1 Mg Tablet, 1 MG PO DAILY, (Reported) Calcium Polycarbophil (Calcium Polycarbophil) 625 Mg Tablet, 1,250 MG PO BID, (Reported) Cetirizine HCl (Cetirizine HCl) 10 Mg Tablet, 10 MG PO QHS, (Reported) Cyclosporine (Restasis) 0.05% Droperette, 1 DROP OU DAILY, (Reported) Diclofenac Sodium (Diclofenac Sodium) 75 Mg Tablet.dr, 75 MG PO BID, (Reported) Donepezil HCl (Aricept) 10 Mg Tab, 10 MG PO DAILY, (Reported) Fenofibric Acid (Choline) (Fenofibric Acid) 135 Mg Cap, 135 MG PO QHS, (Reported) Glucosamine/D3/Boswellia Kasia (Osteo Bi-Flex Caplet) 1 Each Tablet, 2 TAB PO DAILY, (Reported) Guaifenesin (Mucinex) 600 Mg Tab.er.12h, 600 MG PO BID, (Reported) Latanoprost (Xalatan) 0.005% 2.5ML Drops, 1 DROP OU QHS, (Reported) Losartan Potassium (Losartan Potassium) 100 Mg Tablet, 100 MG PO DAILY, (Reported) Magnesium Oxide (Magnesium Oxide) 400 Mg Tablet, 400 MG PO BID, (Reported) Mometasone Furoate Monohydrate (Nasonex) 120 [place]/17 Gm Naspr, 1 SPRAY NARES BID, (Reported) Montelukast Sodium (Singulair) 10 Mg Tab, 10 MG PO QHS, (Reported) Multivitamins (Thera M Plus Tablet) 1 Tab Tab, 1 TAB PO DAILY, (Reported) Omeprazole (Omeprazole) 40 Mg Capsule.dr, 40 MG PO DAILY, (Reported) Potassium Chloride (Klor-Con M10) 10 Meq Tabcr, 10 MEQ PO DAILY, (Reported) Pramipexole Di-HCl (Mirapex) 0.125 Mg Tab, 0.125 MG PO QHS, (Reported) Pregabalin (Lyrica) 75 Mg Capsule, 75 MG PO TID, (Reported) Spironolactone (Spironolactone) 50 Mg Tab, 50 MG PO BID, (Reported) Sulfasalazine (Sulfasalazine) 500 Mg Tab, 1,000 MG PO DAILY, (Reported) Ubidecarenone (Co Q-10) 400 Mg Capsule, 400 MG PO DAILY, (Reported) Umeclidinium Brm/Vilanterol Tr (Anoro Ellipta 62.5-25 Mcg INH) 1 Each Blst.w.dev, 1 PUFF INH DAILY, (Reported) Vitamin B Complex (Vitamin B Complex) 1 Each Tablet, 1 TAB PO DAILY, (Reported) Scheduled PRN Acetaminophen (Acetaminophen) 500 Mg Tablet, 1,000 MG PO Q6H PRN for PAIN, (Reported) Cannabidiol (Cbd Oil) Btl, 1 ML PO BID PRN for BACK PAIN, (Reported) Lanolin Alcohol/Mo/W.pet/[place] (Eucerin Creme) 454 Gm Cream..g., 1 DOSE TOP QID PRN for PSORIASIS, (Reported) Ondansetron HCl (Ondansetron HCl) 8 Mg Tablet, 8 MG PO Q8HP PRN for NAUSEA OR VOMITING Prochlorperazine Maleate (Prochlorperazine Maleate) 10 Mg Tablet, 10 MG PO Q8HP PRN for NAUSEA OR VOMITING Tramadol HCl (Tramadol HCl) 50 Mg Tablet, 50 MG PO QID PRN for PAIN, (Reported) Allergies Coded Allergies: fluticasone (Verified Allergy, Unknown, 03/06/19) thiopental (Verified Allergy, Unknown, 03/07/19) Past Medical History Medical History Chronic back pain, COPD, asthma, CVA, obstructive sleep apnea, GERD, hypertensi on, diabetes mellitus type 2, hypokalemia, hyperlipidemia, diverticulosis, peptic ulcer disease, obesity, gout, psoriasis, dementia, cataracts and arthritis Surgical History Bilateral carpal tunnels repair, bilateral cataract surgery and inguinal hernia repair Family History Family history reviewed, not pertinent Social History * Smoker: former Smoker Alcohol: Denies Drugs: denies A-FIB/CHADSVASC A-FIB History Current/History of A-Fib/PAF?: No Review of Systems Constitutional: Reports: Weakness, Fatigue Eyes: Denies: Pain, Vision change, Conjunctivae inflammation, Eyelid inflammation, Redness, Other ENT: Denies: Head Aches, Ear Pain, Dysphagia, Sinus Congestion, Post Nasal Drip, Sore Throat, Epistaxis, Other Symptoms Skin: Denies: Rash, Lesions, Jaundice, Bruising, Itching, Dry, Breakdown, Nail Changes, Other Pulmonary: Denies: Dyspnea, Cough, Pleuritic Chest Pain, Other Symptoms Cardiovascular: Denies: Chest Pain, Palpitations, Orthopnea, Paroxysmal Noc. Dyspnea, Edema, Lt Headedness, Other Symptoms Gastrointestinal: Denies: Nausea, Vomiting, Abdominal Pain, Diarrhea, Constipation, Melena, Hematochezia, Other Symptoms Genitourinary: Denies: Dysuria, Frequency, Incontinence, Hematuria, Retention, Other Symptoms Hematologic: Denies: Bruising, Bleeding Excessively, Petecchia, Purpura, Enlarged Lymph Nodes, Other Hematologic Endocrine: Denies: Polydipsia, Polyphagia, Polyuria, Heat Intolerance, Cold Intolerance, Other Endocrine Sx Musculoskeletal: Denies: Neck Pain, Back Pain, Shoulder Pain, Arm Pain, Hand Pain, Leg Pain, Foot Pain, Joint Pain, Muscle Pain, Spasms, Other Symptoms Neurological: Reports: Other Symptoms (, slurred speech, rambling when talking dizziness and weakness and blurred vision, difficulty with his gait) Physical Examination General Exam: Positive: Alert, Cooperative Eye Exam: Positive: PERRLA, Conjunctiva & lids normal ENT Exam: Positive: Atraumatic, Mucous membr. moist/pink Neck Exam: Positive: Supple Chest Exam: Positive: Clear to auscultation, Normal air movement Heart Exam: Positive: Rate Normal, Normal S1, Normal S2 Abdomen Exam: Positive: Normal bowel sounds, Soft Extremity Exam: Positive: Normal pulses Skin Exam: Positive: Nl turgor and temperature Neuro Exam: Positive: Strength at 5/5 X4 ext, Sensation Intact, Cranial Nerves 3-12 NL Psych Exam: Positive: Mood NL, Oriented x 3 Vital Signs Vital Signs Date Time Temp Pulse Resp B/P (MAP) Pulse Ox O2 Delivery O2 Flow Rate FiO2 10/25/19 21:55 10/25/19 21:40 97.4 102 20 92 Room Air Laboratory Data Labs 24H Laboratory Tests 2 10/25/19 22:43: Urine Color YELLOW, Urine Appearance CLEAR, Urine pH 6.0, Urine Specific [place] 1.012, Urine Protein NEGATIVE, Urine Glucose (UA) NEGATIVE, Urine Ketones NEGATIVE, Urine Blood NEGATIVE, Urine Nitrite NEGATIVE, Urine Bilirubin NEGATIVE, Urine Urobilinogen 0.2, Urine Leukocyte Esterase NEGATIVE, Urine WBC (Auto) 0, Urine RBC (Auto) 1, Urine Hyaline Casts (Auto) 0, Urine Bacteria (Auto) NEGATIVE, Urine Squamous Epithelial Cells 0, Urine Sperm (Auto) 10/25/19 22:45: Blood Gas Bicarbonate Standard 21.3, Venous Blood pH 7.347, Venous Blood Partial Pressure CO2 40.3, Venous Blood Partial Pressure O2 70.1H, Venous Blood Total Carbon Dioxide 22.8L, Venous Blood HCO3 21.6L, Venous Blood Oxygen Saturation 9 2.7H, Venous Blood Base Excess -3.8L, Anion Gap 8, Glomerular Filtration Rate 39.8L, Osmolality 309H, Lactic Acid Level 1.3, Calcium Level 9.6, Total Bilirubin 0.5, Direct Bilirubin 0.2, Aspartate Amino Transf (AST/SGOT) 180H, Alanine Aminotransferase (ALT/SGPT) 53, Alkaline Phosphatase 184H, Ammonia 26, Total Creatine Kinase 135, Creatine Kinase MB 1.8, Creatine Kinase MB Relative Index 1.33, Troponin I < 0.02, IW-Lqo-T-Type Natriuretic Peptide 570H, Total Protein 6.8, Albumin 3.1L, Albumin/Globulin Ratio 0.8, Thyroid Stimulating Hormone (TSH) 0.623 10/25/19 22:46: Immature Granulocyte % (Auto) 0.8, Neutrophils (%) (Auto) 88.1H, Lymphocytes (%) (Auto) 4.7L, Monocytes (%) (Auto) 5.5H, Eosinophils (%) (Auto) 0.6, Basophils (%) (Auto) 0.3, Neutrophils # (Auto) 14.1H, Lymphocytes # (Auto) 0.8L, Monocytes # (Auto) 0.9H, Eosinophils # (Auto) 0.1, Basophils # (Auto) 0.1, Nucleated Red Blood Cells % (auto) 0.0 CBC/BMP Laboratory Tests 10/25/19 22:45 10/25/19 22:46 Microbiology Microbiology 10/26/19 Blood Culture, Received Pending 10/25/19 Blood Culture, Received Pending Problems (1) Dehydration Status: Acute Problem Text: Admit patient to [facility] floor with telemetry Start IV fluids normal saline at 70 mL per hour Patient's all labs were checked. His WBC is 15.9, hemoglobin 11.4, hematocrit 35.9, MCV 102.9 and platelets 323 Etiology of his leukocytosis is unknown as his chest x-ray is negative. CT head is negative. The urine is essentially negative Will not start any antibiotics, as it could be just inflammatory and can be o btained clinically and repeat labs in a.m. Patient's BUN is 40, creatinine 1.78, and he reports decreased oral intake of liquids and some mild dehydration Continue IV fluids as per orders Diet is a consistent carbohydrate diet Activity as tolerated DVT prophylaxis with heparin (2) Unable to ambulate Status: Acute Problem Text: Now patient complaining of gait disorder along with weakness, dropping things from his hands dizziness, weakness, double vision, slurred speech His CT of the head does not show any ischemia or hemorrhage Physical therapy consult has been called Patient might benefit from transfer to rehabilitation facility for gait training, strength training and endurance (3) GERD (gastroesophageal reflux disease) Status: Chronic Problem Text: Continue home meds (4) Hyperlipidemia Status: Chronic Problem Text: The new home meds (5) Hypertension Status: Chronic Problem Text: Under control, continue home meds (6) Diabetes Status: Chronic Problem Text: Fingerstick blood sugar every before meals and at bedtime with coverage Consistent carbohydrate diet (7) Morbid obesity Status: Chronic (8) TUSHAR on CPAP Status: Chronic Problem Text: Secondary to obesity Patient may use his CPAP while sleeping (9) Gout Status: Chronic Problem Text: Continue home meds (10) Chronic obstructive airway disease with asthma Status: Chronic Problem Text: Continue home meds (11) Dementia Status: Chronic Problem Text: Continue home meds (12) Psoriasis Status: Chronic Problem Text: Continue home meds (13) Esophageal cancer Status: Acute Problem Text: Patient follows up with the cancer Center further, as per oncology as an outpatient Plan / VTE VTE Prophylaxis Ordered?: Yes JATINDER QUEEN MD Oct 26, 2019 03:35
[2019-10-26] MEDS: BUDESONIDE 0.5 MG/2 ML INHALATION SUSPENSION NEB SCH ×2 (07:09→19:40)
[2019-10-26] MEDS ORDERED: HumaLOG INSULIN (NovoLOG) PER UNIT SC SCH ×2 (07:30→21:00)
[2019-10-26 07:35] LABS: BASO # 0.1 10^3/uL (0.0-0.2); BASO % 0.4 % (0.0-1.0); EOS # 0.2 10^3/uL (0.0-0.5); EOS % 1.6 % (0.0-3.0); HEMATOCRIT 35.1 % (42.0-52.0); HEMOGLOBIN 11.2 g/dl (13.5-17.5); LYMPH # 0.9 10^3/uL (1.5-5.0); MEAN CORPUSCULAR HEMOGLOBIN 33.1 pg (27.0-33.0); MEAN CORPUSCULAR HGB CONC 31.9 g/dl (32.0-36.5); MEAN CORPUSCULAR VOLUME 103.8 fl (80.0-96.0); MONO # 0.8 10^3/uL (0.0-0.8); MONO % 6.2 % (0.0-5.0); NEUTROPHILS # 10.5 10^3/uL (1.5-8.5); NEUTROPHILS % 83.9 % (36.0-66.0); PLATELET COUNT, AUTOMATED 307 10^3/uL (150-450); RED BLOOD COUNT 3.38 10^6/uL (4.30-6.10); WHITE BLOOD COUNT 12.5 10^3/uL (4.0-10.0)
[2019-10-26 08:05] LABS: ALBUMIN 2.9 GM/DL (3.2-5.2); BILIRUBIN,TOTAL 0.5 MG/DL (0.2-1.0); CALCIUM LEVEL 9.5 MG/DL (8.8-10.2); CREATININE FOR GFR 1.37 MG/DL (0.70-1.30); GLOMERULAR FILTRATION RATE 53.8 (>42); MAGNESIUM LEVEL 2.3 MG/DL (1.8-2.4); POTASSIUM SERUM 4.7 MEQ/L (3.5-5.1); TOTAL PROTEIN 6.5 GM/DL (6.4-8.2)
[2019-10-26] MEDS: POTASSIUM CHLORIDE 10 MEQ SR TABLET PO SCH (08:54)
[2019-10-26] MEDS: ASPIRIN 81 MG ENTERIC TAB PO SCH (08:54)
[2019-10-26] MEDS: MULTIVITAMINS/MINERALS THERAP 1 TAB PO SCH (08:54)
[2019-10-26] MEDS: OMEPRAZOLE 20 MG CAP PO SCH (08:54)
[2019-10-26] MEDS: DOCUSATE SODIUM 100 MG CAP PO SCH ×2 (08:54→20:35)
[2019-10-26] MEDS: PREGABALIN 75 MG CAP(LYRICA) PO SCH ×3 (08:54→20:35)
[2019-10-26] MEDS: allopurinoL 300 MG TAB PO SCH (08:55)
[2019-10-26] MEDS: MAGNESIUM OXIDE 400 MG TAB (MAG-OX) PO SCH ×2 (08:55→20:35)
[2019-10-26] MEDS: DONEPEZIL 5 MG TAB PO SCH (08:55)
[2019-10-26] MEDS: guaiFENesin ER 600 MG TAB PO SCH ×2 (08:55→20:35)
[2019-10-26] MEDS: sulfaSALAzine 500 MG TABEC PO SCH (08:55)
[2019-10-26] MEDS: ASCORBIC ACID 500 MG TAB PO SCH (08:55)
[2019-10-26] MEDS: FLUTICASONE PROP 0.05% NASAL SPRAY 16 GM (FLONASE) NARES SCH ×2 (08:56→09:00)
[2019-10-26] MEDS: HEPARIN SOD (PORCINE) 5000UNITS/ML VIAL (J1644 PER 1000UNITS) SC SCH ×2 (08:56→20:35)
[2019-10-26] MEDS ORDERED: LOSARTAN 50MG TABLET PO SCH (09:00)
[2019-10-26] MEDS ORDERED: BACLOFEN 10 MG TAB PO SCH (09:00)
[2019-10-26] MEDS ORDERED: BUMETANIDE 1 MG TAB PO SCH (09:00)
[2019-10-26] MEDS ORDERED: SPIRONOLACTONE 50 MG TAB PO SCH (09:00)
--- NOTE | 2019-10-26 10:13 | REP ---
CHEST, PORTABLE: AP portable view of the chest is performed and compared to a prior study 08/25/2018. There appears to be mild cardiomegaly. The mediastinal silhouette is unchanged with mild calcification of the thoracic aorta. Right central venous catheter is noted with the tip at the junction of the superior vena cava and right atrium. There are stable prominent interstitial markings diffusely bilaterally. There is stable mild elevation of the right hemidiaphragm. There is no definite acute infiltrate. Electronically Signed by Addison Canas MD 10/26/2019 07:38 P
--- NOTE | 2019-10-26 12:37 | REPVR ---
PROCEDURE INFORMATION: Exam: MR Head Without Contrast Exam date and time: 10/26/2019 9:37 AM Age: 74 years old Clinical indication: Weakness, extremity; Left; Additional info: Gait abnormality, left sided weakness TECHNIQUE: Imaging protocol: MR of the head without contrast. COMPARISON: CT Head without contrast 10/25/2019 10:15 PM FINDINGS: Brain: No restricted diffusion is seen to suggest acute infarction. A small area of chronic encephalomalacia is noted in the inferior right cerebellar hemisphere. There is no acute intracranial hemorrhage, cerebral edema, or midline shift. Age-related cerebral and cerebellar substance loss is present. Mild increased T2 and FLAIR signal within the periventricular and subcortical white matter is present. This is nonspecific but likely related to chronic microangiopathic ischemic change. Ventricles: No hydrocephalus. Bones/joints: Unremarkable. Sinuses: Normal as visualized. No acute sinusitis. Mastoid air cells: Normal as visualized. No mastoid effusion. Orbits: The patient is likely status post bilateral cataract surgery. Soft tissues: Unremarkable. IMPRESSION: 1. No acute intracranial abnormality. 2. Chronic findings as discussed above. Electronically signed by: Marcelo George On 10/26/2019 12:37:37 PM
[2019-10-26] MEDS ORDERED: NS 1,000 ML IV SCH (14:00)
--- NOTE | 2019-10-26 14:01 | IPNPDOC ---
Text Note Date of Service The patient was seen on 10/26/19. NOTE Subjective: Patient is a 74-year-old male with a PMHx of Dementia, HTN, DM2, DLP, COPD, Asthma, TUSHAR, Chronic back pain, Gout, Psoriasis, Esophageal CA / GERD / Peptic ulcer disease who presented to the hospital because of weakness with associated slurred speech and dizziness. Patient was admitted to hospitalist service for further evaluation and treatment of suspected dehydration. Patient was seen and examined at the bedside. Currently, patient denies any chest pain, shortness of breath or palpitations. They report that they're feeling better than the point of admission. They deny any nausea, vomiting, abdominal pain or diarrhea. Physical therapy will be working with them today. Objective: Vitals (See below) General: Lying in bed, no acute distress, comfortable, AAOx3 HEENT: NC, AT CVS: +S1S2 Lungs: Fair air entry b/l, -w/r/r Abdomen: Soft, ND, NT Extremities: Trace pitting edema, - Calf tenderness Assessment and plan: Weakness - possibly 2/2 dehydration, possibly 2/2 medications, unlikely 2/2 CVA - Patient presented to the hospital with multiple complaints, reported weakness, inability to ambulate, dropping items - Currently, patient does not appear to have any focal neurologic deficits - Cr baseline of 0.9 - 1.0; Cr on admission of 1.78 - CT head 10/24: Mild involutional changes, no acute intracranial abnormality. - MRI brain 10/24: 1. No acute intracranial abnormality. 2. Chronic findings as discussed above. - Will stop diuretics / start fluids (see below); will adjust dose of muscle relaxants - Will discontinue neuro checks - Continue with physical therapy and occupational therapy; until cleared Elevated Cr on CKD3 - Cr baseline of 0.9 - 1.0; Cr on admission of 1.78 - Cr had improved this morning after receiving 1 liter of fluid in the ER - Will discontinue nephrotoxic medications; Lisinopril / Bumetanide / Spironolactone - Will start gentle IV fluid hydration Dementia - Oriented to person / place / time - c/w Donepezil HTN - BP moderately controlled - Will hold Lisinopril / Bumetanide / Spironolactone - Will consider Amlodipine / beta-tashia if blood pressure becomes uncontrolled DM2 - Does not take any medications at home - Blood sugars here have remained well controlled - Will discontinue ISS DLP - c/w Fenofibrate COPD / Asthma - no evidence of exacerbation - c/w inhaled therapy as ordered TUSHAR - may use home CPAP while inpatient Chronic back pain - c/w Tramadol and Baclofen - Will reduce dose of Baclofen Gout - c/w Allopurinol Neuropathy - c/w Pregabalin Psoriasis Morbid obesity - BMI 43.8 - Complicating medical care Esophageal CA / GERD / Peptic ulcer disease - c/w Omeprazole - Follows with Oncology as an outpatient DVT prophylaxis - c/w Heparin Disposition: - c/w PT and OT - Will likely require home with services once cleared VS,Kendall, I+O VS, Kendall, I+O Laboratory Tests 10/25/19 22:45 10/25/19 22:46 10/26/19 07:15 Vital Signs Date Time Temp Pulse Resp B/P (MAP) Pulse Ox O2 Delivery O2 Flow Rate FiO2 10/26/19 12:00 97.1 88 18 151/70 (97) 94 Nasal Cannula 2.0 I&O- Last 24 Hours up to 6 AM 10/26/19 06:00 Intake Total 500 ml Output Total 400 ml Balance 100 ml ARIEL RAMOS MD Oct 26, 2019 14:01
--- NOTE | 2019-10-26 14:39 | ECGEPIP ---
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
[2019-10-26] MEDS: BACLOFEN 5MG PER 1/2 TABLET PO SCH ×2 (17:15→20:35)
[2019-10-26] MEDS: LATANOPROST 0.005% OPHTH SOLN 2.5 ML OU SCH (20:34)
[2019-10-26] MEDS: FENOFIBRATE 145 MG TAB (TRICOR) PO SCH (20:35)
[2019-10-26] MEDS: MONTELUKAST 10 MG TAB PO SCH (20:35)
[2019-10-26] MEDS: CETIRIZINE (ZyrTEC) 10 MG TAB PO SCH (20:35)
[2019-10-26] MEDS: PRAMIPEXOLE (MIRAPEX) 0.125 MG TAB PO SCH (20:35)
[2019-10-27 06:00] VITALS: BP 108/60
[2019-10-27 06:06] LABS: HEMATOCRIT 36.1 % (42.0-52.0); HEMOGLOBIN 11.4 g/dl (13.5-17.5); MEAN CORPUSCULAR HEMOGLOBIN 32.4 pg (27.0-33.0); MEAN CORPUSCULAR HGB CONC 31.6 g/dl (32.0-36.5); MEAN CORPUSCULAR VOLUME 102.6 fl (80.0-96.0); PLATELET COUNT, AUTOMATED 325 10^3/uL (150-450); RED BLOOD COUNT 3.52 10^6/uL (4.30-6.10); WHITE BLOOD COUNT 9.7 10^3/uL (4.0-10.0)
[2019-10-27 06:34] LABS: ALBUMIN 2.9 GM/DL (3.2-5.2); BILIRUBIN,TOTAL 0.5 MG/DL (0.2-1.0); CALCIUM LEVEL 9.6 MG/DL (8.8-10.2); CHOLESTEROL RISK RATIO 4.7 (<5); CREATININE FOR GFR 1.33 MG/DL (0.70-1.30); GLOMERULAR FILTRATION RATE 55.7 (>42); POTASSIUM SERUM 4.5 MEQ/L (3.5-5.1); TOTAL PROTEIN 6.6 GM/DL (6.4-8.2)
[2019-10-27] MEDS: BUDESONIDE 0.5 MG/2 ML INHALATION SUSPENSION NEB SCH (07:07)
[2019-10-27] MEDS: DOCUSATE SODIUM 100 MG CAP PO SCH (09:41)
[2019-10-27] MEDS: MULTIVITAMINS/MINERALS THERAP 1 TAB PO SCH (09:41)
[2019-10-27] MEDS: DONEPEZIL 5 MG TAB PO SCH (09:41)
[2019-10-27] MEDS: ASPIRIN 81 MG ENTERIC TAB PO SCH (09:41)
[2019-10-27] MEDS: sulfaSALAzine 500 MG TABEC PO SCH (09:41)
[2019-10-27] MEDS: OMEPRAZOLE 20 MG CAP PO SCH (09:41)
[2019-10-27] MEDS: POTASSIUM CHLORIDE 10 MEQ SR TABLET PO SCH (09:41)
[2019-10-27] MEDS: MAGNESIUM OXIDE 400 MG TAB (MAG-OX) PO SCH (09:41)
[2019-10-27] MEDS: BACLOFEN 5MG PER 1/2 TABLET PO SCH (09:41)
[2019-10-27] MEDS: ASCORBIC ACID 500 MG TAB PO SCH (09:41)
[2019-10-27] MEDS: PREGABALIN 75 MG CAP(LYRICA) PO SCH (09:41)
[2019-10-27] MEDS: allopurinoL 300 MG TAB PO SCH (09:41)
[2019-10-27] MEDS: guaiFENesin ER 600 MG TAB PO SCH (09:41)
[2019-10-27] MEDS: HEPARIN SOD (PORCINE) 5000UNITS/ML VIAL (J1644 PER 1000UNITS) SC SCH (09:42)
[2019-10-27] MEDS ORDERED: LOSA25TA14 PO (11:27)
[2019-10-27] MEDS ORDERED: SPIR-10 PO (11:27)
[2019-10-27] MEDS ORDERED: BACL10TA2 PO (11:34)
--- NOTE | 2019-10-27 11:38 | DS.PDOC ---
Discharge Summary General Date of Admission Oct 26, 2019 at 15:30 Date of Discharge 10/27/2019 Discharge Summary PROCEDURES PERFORMED DURING STAY: [None]. ADMITTING DIAGNOSES / DISCHARGE DIAGNOSES: Weakness - possibly 2/2 medications in the setting of elevate Cr on CKD3, unlikely 2/2 CVA Elevated Cr on CKD3 Dementia HTN DM2 DLP COPD / Asthma TUSHAR Chronic back pain Gout Neuropathy Psoriasis Morbid obesity Esophageal CA / GERD / Peptic ulcer disease DVT prophylaxis COMPLICATIONS/CHIEF COMPLAINT: Dehydration. HISTORY OF PRESENT ILLNESS: Patient is a 74-year-old male with a PMHx of Dementia, HTN, DM2, DLP, COPD, Asthma, TUSHAR, Chronic back pain, Gout, Psoriasis, Esophageal CA / GERD / Peptic ulcer disease who presented to the hospital because of weakness with associated slurred speech and dizziness. Patient was admitted to hospitalist service for further evaluation and treatment of suspected dehydration. HOSPITAL COURSE: Weakness - possibly 2/2 medications in the setting of elevate Cr on CKD3, unlikely 2/2 CVA - Patient presented to the hospital with multiple complaints, reported weakness, inability to ambulate, dropping items - Currently, patient does not appear to have any focal neurologic deficits - Cr baseline of 0.9 - 1.0; Cr on admission of 1.78 - CT head 10/24: Mild involutional changes, no acute intracranial abnormality. - MRI brain 10/24: 1. No acute intracranial abnormality. 2. Chronic findings as discussed above. - Will resume diuretics; c/w adjusted dose of muscle relaxants - Will discontinue neuro checks - Continue with physical therapy and occupational therapy; until cleared Elevated Cr on CKD3 - Cr baseline of 0.9 - 1.0; Cr on admission of 1.78 - Cr has remained stable - Will discontinue nephrotoxic medications; Lisinopril / Bumetanide / Spironolactone - s/p gentle IV fluid hydration Dementia - Oriented to person / place / time - c/w Donepezil HTN - BP remains well controlled - Will resume Spironolactone and Losartan at adjusted dose - Will resume Bumetanide as an outpatient DM2 - Does not take any medications at home - Blood sugars here have remained well controlled - Will discontinue ISS DLP - c/w Fenofibrate COPD / Asthma - no evidence of exacerbation - c/w inhaled therapy as ordered TUSHAR - may use home CPAP while inpatient Chronic back pain - c/w Tramadol and Baclofen - c/w reduced dose of Baclofen Gout - c/w Allopurinol Neuropathy - c/w Pregabalin Psoriasis Morbid obesity - BMI 43.8 - Complicating medical care Esophageal CA / GERD / Peptic ulcer disease - c/w Omeprazole - Follows with Oncology as an outpatient DVT prophylaxis - c/w Heparin DISCHARGE MEDICATIONS: Please see below. ALLERGIES: Please see below. PHYSICAL EXAMINATION ON DISCHARGE: Vitals (See below) General: Lying in bed, appears comfortable, AAOx3 HEENT: NC, AT CVS: +S1S2 Lungs: Fair air entry b/l, no wheezing / rhonchi / crackles Abdomen: No evidence of distention or tenderness Extremities: Trace pitting edema persists, - Calf tenderness LABORATORY DATA: Please see below. ACTIVITY: [As tolerated]. DISCHARGE PLAN: Follow up with PCP, Cardiology, Nephrology and Oncology within 7 days Remain compliant with treatment plan and medications Return to the ER if you experience any problems DISPOSITION: Home with services DISCHARGE CONDITION: [Stable]. TIME SPENT ON DISCHARGE: 35 minutes. Vital Signs/I&Os Vital Signs Date Time Temp Pulse Resp B/P (MAP) Pulse Ox O2 Delivery O2 Flow Rate FiO2 10/27/19 06:00 97.9 83 18 108/60 (76) 95 Room Air 10/26/19 12:00 I&O- Last 24 Hours up to 6 AM 10/27/19 05:59 Intake Total 1810 ml Output Total 1900 ml Balance -90 ml Laboratory Data Labs 24H Laboratory Tests 2 10/26/19 12:38: Bedside Glucose (Misc Panel) 90 10/27/19 05:50: Nucleated Red Blood Cells % (auto) 0.0, Anion Gap 8, Glomerular Filtration Rate 55.7, Calcium Level 9.6, Magnesium Level 2.0, Total Bilirubin 0.5, Aspartate Amino Transf (AST/SGOT) 158H, Alanine Aminotransferase (ALT/SGPT) 47, Alkaline Phosphatase 180H, Total Protein 6.6, Albumin 2.9L, Albumin/Globulin Ratio 0.8, Triglycerides Level 124, Total Cholesterol 188, LDL Cholesterol 123H, Non-HDL Cholesterol (LDL + VLDL) 148, Total HDL Cholesterol 40, Cholesterol/HDL Ratio 4.700 CBC/BMP Laboratory Tests 10/27/19 05:50 FSBS Laboratory Tests Test 10/26/19 12:38 Range/Units Bedside Glucose (Misc Panel) 90 83-110 MG/DL Microbiology Microbiology 10/26/19 Blood Culture - Preliminary, Resulted No growth after 24 hours . All specim... 10/25/19 Blood Culture - Preliminary, Resulted No growth after 24 hours . All specim... Discharge Medications Scheduled Allopurinol (Zyloprim) 300 Mg Tab, 300 MG PO DAILY, (Reported) Arformoterol Tartrate (Brovana) 15 Mcg/2 Ml Vial.neb, 1 VIAL NEB BID, (Reported) MIX WITH BUDESONIDE Ascorbic Acid (Vitamin C) 500 Mg Tab, 500 MG PO DAILY, (Reported) Aspirin (Aspirin EC) 81 Mg Tab, 81 MG PO DAILY, (Reported) Baclofen (Baclofen) 10 Mg Tab, 10 MG PO TID, (Reported) Budesonide (Budesonide) 0.5 Mg/2 Ml Neb, 1 VIAL NEB BID, (Reported) WITH BROVANA Bumetanide (Bumetanide) 1 Mg Tablet, 1 MG PO DAILY, (Reported) Calcium Polycarbophil (Calcium Polycarbophil) 625 Mg Tablet, 1,250 MG PO BID, (Reported) Cetirizine HCl (Cetirizine HCl) 10 Mg Tablet, 10 MG PO QHS, (Reported) Cyclosporine (Restasis) 0.05% Droperette, 1 DROP OU DAILY, (Reported) Diclofenac Sodium (Diclofenac Sodium) 75 Mg Tablet.dr, 75 MG PO BID, (Reported) Donepezil HCl (Aricept) 10 Mg Tab, 10 MG PO DAILY, (Reported) Fenofibric Acid (Choline) (Fenofibric Acid) 135 Mg Cap, 135 MG PO QHS, (Reported) Glucosamine/D3/Boswellia Kasia (Osteo Bi-Flex Caplet) 1 Each Tablet, 2 TAB PO DAILY, (Reported) Guaifenesin (Mucinex) 600 Mg Tab.er.12h, 600 MG PO BID, (Reported) Latanoprost (Xalatan) 0.005% 2.5ML Drops, 1 DROP OU QHS, (Reported) Losartan Potassium (Losartan Potassium) 25 Mg Tablet, 1 TAB PO DAILY Magnesium Oxide (Magnesium Oxide) 400 Mg Tablet, 400 MG PO BID, (Reported) Mometasone Furoate Monohydrate (Nasonex) 120 [place]/17 Gm Naspr, 1 SPRAY NARES BID, (Reported) Montelukast Sodium (Singulair) 10 Mg Tab, 10 MG PO QHS, (Reported) Multivitamins (Thera M Plus Tablet) 1 Tab Tab, 1 TAB PO DAILY, (Reported) Omeprazole (Omeprazole) 40 Mg Capsule.dr, 40 MG PO DAILY, (Reported) Potassium Chloride (Klor-Con M10) 10 Meq Tabcr, 10 MEQ PO DAILY, (Reported) Pramipexole Di-HCl (Mirapex) 0.125 Mg Tab, 0.125 MG PO QHS, (Reported) Pregabalin (Lyrica) 75 Mg Capsule, 75 MG PO TID, (Reported) Spironolactone (Spironolactone) 25 Mg Tablet, 1 TAB PO BID Sulfasalazine (Sulfasalazine) 500 Mg Tab, 1,000 MG PO DAILY, (Reported) Ubidecarenone (Co Q-10) 400 Mg Capsule, 400 MG PO DAILY, (Reported) Umeclidinium Brm/Vilanterol Tr (Anoro Ellipta 62.5-25 Mcg INH) 1 Each Blst.w.dev, 1 PUFF INH DAILY, (Reported) Vitamin B Complex (Vitamin B Complex) 1 Each Tablet, 1 TAB PO DAILY, (Reported) Scheduled PRN Acetaminophen (Acetaminophen) 500 Mg Tablet, 1,000 MG PO Q6H PRN for PAIN, (Reported) Cannabidiol (Cbd Oil) Btl, 1 ML PO BID PRN for BACK PAIN, (Reported) Lanolin Alcohol/Mo/W.pet/[place] (Eucerin Creme) 454 Gm Cream..g., 1 DOSE TOP QID PRN for PSORIASIS, (Reported) Ondansetron HCl (Ondansetron HCl) 8 Mg Tablet, 8 MG PO Q8HP PRN for NAUSEA OR VOMITING Prochlorperazine Maleate (Prochlorperazine Maleate) 10 Mg Tablet, 10 MG PO Q8HP PRN for NAUSEA OR VOMITING Tramadol HCl (Tramadol HCl) 50 Mg Tablet, 50 MG PO QID PRN for PAIN, (Reported) Allergies Coded Allergies: thiopental (Verified Allergy, Unknown, 03/07/19) fluticasone (Verified Adverse Reaction, Mild, coughing/hacking/stuffy nose, 10/26/19) ARIEL RAMOS MD Oct 27, 2019 11:38
== END 2019-10-27 14:40 | disposition home health service (06) | DRG 948 ==
LOC: M ED 21:38 → M ED INP 10-26 03:10 → ENRESERV 10-26 03:39 → M PCU 10-26 05:07 → OBSVTOIN 10-26 15:30 → M MSPAV 10-26 21:18
PROVIDERS: ADMIT Internal Medicine; ATTEND Internal Medicine
DX: R53.1 Weakness (principal); C15.9 Malignant neoplasm of esophagus, unspecified; Z68.41 Body mass index [BMI] 40.0-44.9, adult; E86.0 Dehydration; R42 Dizziness and giddiness; J44.9 Chronic obstructive pulmonary disease, unspecified; G47.33 Obstructive sleep apnea (adult) (pediatric); K21.9 Gastro-esophageal reflux disease without esophagitis; I12.9 Hypertensive chronic kidney disease with stage 1 through stage 4 chronic kidney disease, or unspecified chronic kidney disease; E11.22 Type 2 diabetes mellitus with diabetic chronic kidney disease; N18.3 Chronic kidney disease, stage 3 (moderate); E66.01 Morbid (severe) obesity due to excess calories; M19.90 Unspecified osteoarthritis, unspecified site; E87.6 Hypokalemia; R26.89 Other abnormalities of gait and mobility; E78.5 Hyperlipidemia, unspecified; M10.9 Gout, unspecified; L40.9 Psoriasis, unspecified; F03.90 Unspecified dementia, unspecified severity, without behavioral disturbance, psychotic disturbance, mood disturbance, and anxiety; K27.9 Peptic ulcer, site unspecified, unspecified as acute or chronic, without hemorrhage or perforation; K57.90 Diverticulosis of intestine, part unspecified, without perforation or abscess without bleeding; Z79.82 Long term (current) use of aspirin; Z79.899 Other long term (current) drug therapy; Z88.8 Allergy status to other drugs, medicaments and biological substances; Z98.41 Cataract extraction status, right eye; Z98.42 Cataract extraction status, left eye; Z87.891 Personal history of nicotine dependence

== ENCOUNTER → 2019-10-30 | Outpatient (CLI) | payer MEDICARE ==
[~2019-10-30] MED LIST changes: +BACL10TA8 PO; +BROV15NE NEB; +CO Q200C10 PO; +DICL75TA PO; +LOSA100T50 PO; +LOSA25TA14 PO; +OSTETAB2 PO; +PRED10TA2 PO; +PROHANCE 279.3MG/ML 15ML VIAL As Ordered ONE; +QC F0.52 PO; +SPIR-10 PO
--- NOTE | 2019-10-30 16:50 | REP ---
MRI ABDOMEN WITH AND WITHOUT CONTRAST: HISTORY: Esophageal cancer. TECHNIQUE: Multiple sequences obtained in the axial and coronal planes prior to and following the intravenous administration of 10 mL ProHance. Liver is enlarged measuring approximately 24 cm in length. Multiple innumerable metastatic lesions are now identified throughout the liver. Some are quite large and bulky in appearance. The largest appears to be in the left lobe and measures about 8.3 cm in maximum diameter. Gallbladder is grossly unremarkable. There is no evidence of intrahepatic or extrahepatic biliary dilatation. Spleen is normal in size with no intrinsic abnormality. There is a stable left adrenal mass measuring 4.9 cm in diameter. Right adrenal gland is normal. Pancreas is unremarkable with no mass or evidence of pancreatic duct dilatation. There are bilateral renal cysts. A hyperintense proteinaceous or hemorrhagic renal cyst is seen posteriorly on the left measuring 2.4 cm. I see no periaortic adenopathy in the abdomen. However, there is again a mass in the distal esophagus noted with an adjacent paraesophageal lymph node measuring 2.7 cm. IMPRESSION: Multiple innumerable metastatic lesions seen throughout the liver. Hepatomegaly. Distal esophageal mass again noted. There is an adjacent paraesophageal lymph node present which is somewhat enlarged measuring approximately 2.7 cm. Stable left adrenal mass with no significant change compared to prior CT of 02/15/2015. Electronically Signed by Addison Canas MD 10/30/2019 11:08 P
== END ==
LOC: M RAD 08:19
PROVIDERS: ATTEND Internal Medicine Hematology & Oncology
DX: C15.9 Malignant neoplasm of esophagus, unspecified (principal); C78.7 Secondary malignant neoplasm of liver and intrahepatic bile duct
CPT/HCPCS: 74183; A9576

== ENCOUNTER → 2019-11-01 | Outpatient (CLI) | payer MEDICARE ==
[~2019-11-01] MED LIST changes: +GASTROGRAFIN SOLUTION 30ML (Q9963) As Ordered ONE; +ISOVUE-370 76% 100ML VIAL As Ordered ONE; -PROHANCE 279.3MG/ML 15ML VIAL As Ordered ONE
--- NOTE | 2019-11-01 23:51 | REP ---
REASON FOR EXAM: History of esophageal carcinoma. There are no pertinent priors for comparison. The latest prior is 02/15/2015. CONTRAST: 100 mL Isovue-370. There are numerable mixed density hepatic lesions of various sizes, all of which represent a change from the latest prior for comparison and all consistent with hepatic metastasis. The spleen, pancreas, right adrenal gland, and kidneys are unchanged. The left adrenal gland is seen with a large low-density mass, but this mass does exhibit contrast enhancement. It is essentially unchanged compared to the 02/15/2015 CT, however. The abdominal aorta and para-aortic regions are within normal limits. Calcific atherosclerotic change is seen involving the abdominal aorta. There is no free fluid or free air. The bowel loops and their mesenteries are unremarkable. CT PELVIS: The bowel loops and their mesenteries are within normal limits. There is no evidence of a pelvic mass or adenopathy. There is no free fluid or free air. Although difficult to evaluate by CT, the esophagus appears dilated. This is a gross change when compared to the prior exam. I cannot rule out the possibility of esophageal neoplasm by this CT exam. Bone window technique throughout the exam shows chronic spinal, hip, and sacroiliac joint degenerative changes. IMPRESSION: 1. Hepatic metastasis. 2. Essentially unchanged left adrenal gland mass. 3. Bilateral renal cysts, status quo. 4. Abnormal appearing esophagus, which cannot be better evaluated by CT. Neoplasm of the esophagus cannot be ruled out. 5. Other findings as described above. Electronically Signed by Gutierrez Jaramillo DO 11/02/2019 08:06 A
--- NOTE | 2019-11-01 23:59 | REP ---
REASON FOR EXAM: Esophageal carcinoma. There are no prior chest CTs for comparison. CONTRAST: 100 mL Isovue-370. The esophagus is dilated, and soft tissue masses may be within or along the esophageal figueroa. There is a nodule seen in the left paraesophageal region, possibly representing adenopathy. The mediastinal and pulmonary boris are otherwise within normal limits. There are no pleural or pericardial effusions. Bone window technique throughout the exam shows the osseous structures to be within normal limits for the patient's age. There is a left shoulder prosthesis. Evaluation of the lung orozco shows numerable solid spiculated nodules too numerous to count or individually assess. IMPRESSION: 1. Esophageal neoplasm is suspected, but further imaging should be obtained. PET/CT is warranted. 2. There is evidence of pulmonary and hepatic metastasis. Electronically Signed by Gutierrez Jaramillo DO 11/02/2019 08:06 A
== END ==
LOC: M RAD 13:56
PROVIDERS: ATTEND Internal Medicine Hematology & Oncology
DX: C15.9 Malignant neoplasm of esophagus, unspecified (principal)
CPT/HCPCS: 71260; 74177; Q9963; Q9967

== ENCOUNTER 2019-11-06 08:58 | Inpatient (IN) | payer MEDICARE ==
[~2019-11-06] VITALS: Ht 175.3 cm; Wt 103.6 kg
[~2019-11-06 08:58] MED LIST changes: -BACL10TA8 PO; -CO Q200C10 PO; -GASTROGRAFIN SOLUTION 30ML (Q9963) As Ordered ONE; -ISOVUE-370 76% 100ML VIAL As Ordered ONE; -OSTETAB2 PO; -QC F0.52 PO
[2019-11-06] MEDS: HEPARIN SOD (PORCINE) 5000UNITS/ML VIAL (J1644 PER 1000UNITS) SC SCH ×2 (09:00→22:53)
[2019-11-06] MEDS: DOCUSATE SODIUM 100 MG CAP PO SCH ×2 (09:00→22:52)
[2019-11-06] MEDS ORDERED: ZETI10TA16 PO (09:31)
[2019-11-06] MEDS ORDERED: CO Q200C10 PO (09:31)
[2019-11-06] MEDS ORDERED: OSTETAB2 PO (09:31)
[2019-11-06 10:07] LABS: BASO # 0.1 10^3/uL (0.0-0.2); BASO % 0.3 % (0.0-1.0); EOS % 0.2 % (0.0-3.0); HEMATOCRIT 36.3 % (42.0-52.0); HEMOGLOBIN 11.7 g/dl (13.5-17.5); LYMPH # 0.6 10^3/uL (1.5-5.0); LYMPH % 3.4 % (24.0-44.0); MEAN CORPUSCULAR HEMOGLOBIN 32.2 pg (27.0-33.0); MEAN CORPUSCULAR HGB CONC 32.2 g/dl (32.0-36.5); MONO # 1.4 10^3/uL (0.0-0.8); MONO % 8.2 % (0.0-5.0); NEUTROPHILS # 14.1 10^3/uL (1.5-8.5); NEUTROPHILS % 84.6 % (36.0-66.0); PLATELET COUNT, AUTOMATED 344 10^3/uL (150-450); RED BLOOD COUNT 3.63 10^6/uL (4.30-6.10); WHITE BLOOD COUNT 16.6 10^3/uL (4.0-10.0)
--- NOTE | 2019-11-06 10:32 | REP ---
Portable chest x-ray: Single view. History: Altered mental status. Comparison chest x-ray: October 25, 2019. Findings: Monitoring electrodes overlie the chest. A right-sided Jbqwar-B-Aeei catheter remains in place with its tip in the expected location of the superior vena cava. A left shoulder prosthesis is noted. Heart size is borderline unchanged. There are pulmonary parenchymal nodular opacities noted bilaterally unchanged from comparison CT study November 01, 2019. No new infiltrate is noted. Electronically Signed by Rashard Hill MD 11/06/2019 10:24 A
--- NOTE | 2019-11-06 10:46 | REP ---
CT BRAIN WITHOUT CONTRAST: HISTORY: Altered mental status. Comparison brain CT study October 25, 2019. Comparison MRI study October 26, 2019. CT FINDINGS: Digital it service technician radiographs are unremarkable. The bony calvarium remains intact. Visualized paranasal sinuses are clear. No intraorbital abnormality is seen. There is vascular calcification in the distal internal carotid arteries bilaterally as before. The lateral, third, and fourth ventricles are normal in position and appearance. Canas/white differentiation pattern is normal above and below the tentorium. There is no evidence of intracranial hemorrhage. No infarct, mass, extra-axial fluid collection, or midline shift is seen. IMPRESSION: No acute intracranial abnormality. Vascular calcification and minimal volume loss. Electronically Signed by Rashard Hill MD 11/06/2019 02:54 P
--- NOTE | 2019-11-06 10:47 | REP ---
CT STUDY OF THE CERVICAL SPINE WITHOUT CONTRAST: HISTORY: Trauma. Comparison is made with MRI study of the lumbar spine from March 04, 2018. TECHNIQUE: Helical scanning is acquired and overlapping 2 mm high resolution axial images were generated and reviewed at bone and soft tissue window settings. Coronal and sagittal multiplanar re-formations images are generated. CT FINDINGS: There is no evidence of cervical spine element fracture. No skull base fracture is seen. Cervical vertebral body heights are preserved. There is reversal of the normal cervical lordosis. There is advanced degenerative disc and osteoarthritic facet disease throughout the cervical spine. There is a 2-3 mm degenerative anterior subluxation of C3 on C4 unchanged from the 2018 MRI study. There is multilevel neural foraminal narrowing. There is no paraspinal hematoma seen. Extensive vascular calcification is noted. No extra vertebral abnormality is seen. IMPRESSION: Advanced degenerative spondylosis changes stable from March 04, 2018. Otherwise negative CT study of the cervical spine without contrast. No fracture seen. Electronically Signed by Rashard Hill MD 11/06/2019 02:55 P
[2019-11-06 10:54] LABS: ALBUMIN 2.6 GM/DL (3.2-5.2); ALT/SGPT 179 U/L (12-78); BILIRUBIN,TOTAL 1.4 MG/DL (0.2-1.0); BLOOD UREA NITROGEN 63 MG/DL (7-18); CALCIUM LEVEL 9.9 MG/DL (8.8-10.2); CARBON DIOXIDE LEVEL 25 MEQ/L (21-32); CHLORIDE LEVEL 103 MEQ/L (98-107); CK-MB VALUE MASS 1.4 NG/ML (<3.6); CPK CREATINE PHOSPHOKINASE 139 U/L (39-308); CREATININE FOR GFR 2.85 MG/DL (0.70-1.30); ETHYL ALCOHOL (ETHANOL) < 0.003 % (0.000-0.010); GLOMERULAR FILTRATION RATE 23.1 (>42); GLUCOSE, FASTING 83 MG/DL (70-100); MB/CK RELATIVE INDEX 1.01 (< OR =4); POTASSIUM SERUM 5.7 MEQ/L (3.5-5.1); SODIUM LEVEL 137 MEQ/L (136-145); THYROID STIMULATING HORMONE 0.498 uIU/ML (0.358-3.740); TOTAL PROTEIN 6.2 GM/DL (6.4-8.2); TROPONIN I < 0.02 NG/ML (< 0.10)
[2019-11-06] MEDS ORDERED: NS 500 ML IV ONE (11:15)
[2019-11-06] MEDS ORDERED: SPIR-10 PO (11:53)
[2019-11-06] MEDS ORDERED: BACL10TA8 PO (11:53)
[2019-11-06] MEDS ORDERED: QC F0.52 PO (11:53)
[2019-11-06] MEDS ORDERED: LOSA25TA14 PO (11:53)
[2019-11-06] MEDS ORDERED: CETI5TAB2 PO (11:53)
[2019-11-06] MEDS ORDERED: MAALOX 30 ML SUSP *UDC PO PRN (13:00)
[2019-11-06] MEDS ORDERED: ACETAMINOPHEN TAB 650MG DOSE (2X325MG) PO PRN (13:00)
[2019-11-06] MEDS ORDERED: MOM 30ML SUSPENSION UDC PO PRN (13:00)
--- NOTE | 2019-11-06 13:36 | HPEPDOC ---
General Date of Admission Nov 06, 2019 at 12:47 Date of Service: Nov 06, 2019 Chief Complaint The patient is a 74-year-old male admitted with a reason for visit of Acute Kidney Injury Dehydration. Source: RN/MD, Other (-) Exam Limitations: Other (severe dementia, obtundation) Timing/Duration: Other (few days) Severity: Other (, not applicable) Associated Symptoms: Other (. 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 His ankles gave him and he felt dizzy and went to the ground. Did not hit his head or neck. According to , he is not also been eating or drinking since last few days and is obtunded and confused. Patient is lethargic. He opens eyes when asked questions, drifts back to sleep without answering questions. History was obtained from patient's at bedside and the ED physician. Patient's old records were checked as well and I also called Dr. Reyes and discussed with her regarding patient's management Home Medications Scheduled Allopurinol (Zyloprim) 300 Mg Tab, 300 MG PO DAILY, (Reported) Arformoterol Tartrate (Brovana) 15 Mcg/2 Ml Vial.neb, 1 VIAL NEB BID, (Reported) MIX WITH BUDESONIDE Ascorbic Acid (Vitamin C) 500 Mg Tab, 500 MG PO DAILY, (Reported) Aspirin (Aspirin EC) 81 Mg Tab, 81 MG PO DAILY, (Reported) Baclofen (Baclofen) 10 Mg Tablet, 5 MG PO TID, (Reported) Budesonide (Budesonide) 0.5 Mg/2 Ml Neb, 1 VIAL NEB BID, (Reported) WITH BROVANA Bumetanide (Bumetanide) 1 Mg Tablet, 1 MG PO DAILY, (Reported) Cetirizine HCl (Cetirizine HCl) 5 Mg Tablet, 5 MG PO QHS, (Reported) Cyclosporine (Restasis) 0.05% Droperette, 1 DROP OU DAILY, (Reported) Diclofenac Sodium (Diclofenac Sodium) 75 Mg Tablet.dr, 75 MG PO BID, (Reported) Donepezil HCl (Aricept) 10 Mg Tab, 10 MG PO DAILY, (Reported) Ezetimibe (Zetia) 10 Mg Tablet, 10 MG PO QHS, (Reported) Fenofibric Acid (Choline) (Fenofibric Acid) 135 Mg Cap, 135 MG PO QHS, (Reported) Glucosam/Arthur-Msm1/C/Steve/Bosw (Osteo Bi-Flex Caplet) 1 Each Tablet, 2 TAB PO DAILY, (Reported) Guaifenesin (Mucinex) 600 Mg Tab.er.12h, 600 MG PO BID, (Reported) Latanoprost (Xalatan) 0.005% 2.5ML Drops, 1 DROP OU QHS, (Reported) Losartan Potassium (Losartan Potassium) 25 Mg Tablet, 25 MG PO DAILY, (Reported) Magnesium Oxide (Magnesium Oxide) 400 Mg Tablet, 400 MG PO BID, (Reported) Mometasone Furoate Monohydrate (Nasonex) 120 [place]/17 Gm Naspr, 1 SPRAY NARES BID, (Reported) Montelukast Sodium (Singulair) 10 Mg Tab, 10 MG PO QHS, (Reported) Multivitamins (Thera M Plus Tablet) 1 Tab Tab, 1 TAB PO DAILY, (Reported) Omeprazole (Omeprazole) 40 Mg Capsule.dr, 40 MG PO DAILY, (Reported) Potassium Chloride (Klor-Con M10) 10 Meq Tabcr, 10 MEQ PO DAILY, (Reported) Pramipexole Di-HCl (Mirapex) 0.125 Mg Tab, 0.125 MG PO QHS, (Reported) Pregabalin (Lyrica) 75 Mg Capsule, 75 MG PO TID, (Reported) Psyllium Husk (Fiber) 0.52 Gm Capsule, 0.52 GM PO DAILY, (Reported) Spironolactone (Spironolactone) 25 Mg Tablet, 25 MG PO BID, (Reported) Sulfasalazine (Sulfasalazine) 500 Mg Tab, 1,000 MG PO DAILY, (Reported) Ubidecarenone (Co Q-10) 200 Mg Capsule, 400 MG PO DAILY, (Reported) Umeclidinium Brm/Vilanterol Tr (Anoro Ellipta 62.5-25 Mcg INH) 1 Each Blst.w.dev, 1 PUFF INH DAILY, (Reported) Vitamin B Complex (Vitamin B Complex) 1 Each Tablet, 1 TAB PO DAILY, (Reported) Scheduled PRN Acetaminophen (Acetaminophen) 500 Mg Tablet, 1,000 MG PO Q6H PRN for PAIN, (Reported) Cannabidiol (Cbd Oil) Btl, 1 ML PO BID PRN for BACK PAIN, (Reported) Ondansetron HCl (Ondansetron HCl) 8 Mg Tablet, 8 MG PO Q8HP PRN for NAUSEA OR VOMITING Prochlorperazine Maleate (Prochlorperazine Maleate) 10 Mg Tablet, 10 MG PO Q8HP PRN for NAUSEA OR VOMITING Tramadol HCl (Tramadol HCl) 50 Mg Tablet, 50 MG PO QID PRN for PAIN, (Reported) Allergies Coded Allergies: thiopental (Verified Allergy, Unknown, 11/06/19) fluticasone (Verified Adverse Reaction, Mild, coughing/hacking/stuffy nose, 11/06/19) Past Medical History Medical History Chronic back pain, COPD, asthma, arthritis, sleep apnea, GERD, hypertension, hypokalemia, hyperlipidemia, diverticulosis, peptic ulcer disease, gout, psoriasis, dementia, cataracts, dry syndrome and osteoarthritis and esophageal cancer with liver metastases Surgical History Bilateral Coppertone Javier's repair, bilateral cataract surgery, inguinal hernia repair Family History No pertinent family history , reviewed with patient's Social History * Smoker: Denies Alcohol: Denies Drugs: denies A-FIB/CHADSVASC A-FIB History Current/History of A-Fib/PAF?: No Review of Systems Constitutional: Reports: Other (. Able to obtained review review of systems secondary to advanced dementia and obtundation) Physical Examination General Exam: Positive: Other (lethargic but easily arousable with local stimuli) Eye Exam: Positive: PERRLA, Conjunctiva & lids normal ENT Exam: Positive: Atraumatic Neck Exam: Positive: Supple Chest Exam: Positive: Other (. Bilateral basal crackles) Heart Exam: Positive: Rate Normal, Normal S1, Normal S2 Abdomen Exam: Positive: Normal bowel sounds Extremity Exam: Positive: Normal pulses Skin Exam: Positive: Nl turgor and temperature Neuro Exam: Positive: Other (. Unable to do neuro exam secondary to patient's mental status) Psych Exam: Positive: Other (, unable to psych exam secondary to patient's mental status) Vital Signs Vital Signs Date Time Temp Pulse Resp B/P (MAP) Pulse Ox O2 Delivery O2 Flow Rate FiO2 11/06/19 10:54 101 147/81 (103) 103 154/63 (93) 107 131/96 (108) 11/06/19 09:03 98.8 20 93 Room Air Laboratory Data Labs 24H Laboratory Tests 2 11/06/19 09:42: Bedside Glucose (Misc Panel) 96 11/06/19 09:50: Anion Gap 9, Glomerular Filtration Rate 23.1L, Calcium Level 9.9, Total Bilirubin 1.4#H, Direct Bilirubin 1.0H, Aspartate Amino Transf (AST/SGOT) 676H, Alanine Aminotransferase (ALT/SGPT) 179H, Alkaline Phosphatase 505H, Total Creatine Kinase 139, Creatine Kinase MB 1.4, Creatine Kinase MB Relative Index 1.01, Troponin I < 0.02, Total Protein 6.2L, Albumin 2.6L, Albumin/Globulin Ratio 0.7, Thyroid Stimulating Hormone (TSH) 0.498, Ethyl Alcohol Level < 0.003 11/06/19 09:51: Immature Granulocyte % (Auto) 3.3H, Neutrophils (%) (Auto) 84.6H, Lymphocytes (%) (Auto) 3.4L, Monocytes (%) (Auto) 8.2H, Eosinophils (%) (Auto) 0.2, Basophils (%) (Auto) 0.3, Neutrophils # (Auto) 14.1H, Lymphocytes # (Auto) 0.6L, Monocytes # (Auto) 1.4H, Eosinophils # (Auto) 0.0, Basophils # (Auto) 0.1, Nucleated Red Blood Cells % (auto) 0.0, Ammonia 32 CBC/BMP Laboratory Tests 11/06/19 09:50 11/06/19 09:51 Problems (1) Dehydration Status: Acute Problem Text: 74 years old white male with multiple medical problems including stage IV CA esophagus with liver metastases brought in by and he felt weak and fell down to the ground. According to , he has not been eating and drinking and is obtunded and confused last few days. Patient being admitted with possible dehydration and acute kidney injury [facility] IVF D5 normal saline at 70 mL per hour And by mouth till patient is more alert and awake Repeat CMP in a.m. Hold all diuretics and nephrotoxic meds DVT prophylaxis with heparin Bed rest Aguilera catheter to measure I&O's Discussed with patient's regarding DNR and DNI status. All risks and benefits explained, but she wishes full code at the present time. (2) Acute metabolic encephalopathy Status: Acute Problem Text: . Ammonia level ordered CT of the brain without contrast does not show any metastases, stroke, hemorrhage, but probably will need CT of the brain with contrast to rule out brain metastases . Ammonia level is high, then patient will probably need lactulose Also cannot rule out infectious cause for his metabolic encephalopathy, UA with urine cultures and blood cultures has been ordered Empiric Zosyn 3.375 mg IV every 6 hours has been ordered till the pending lab work and cultures are back (3) Acute kidney injury Status: Acute Problem Text: Acute kidney injury, most likely secondary to dehydration and patient is on multiple diuretics as well as ESTUARDO inhibitor IV fluid D5 normal saline at 70 mL per hour Holding all diuretics and estuardo inhibitor Avoid nephrotoxic meds Repeat labs in a.m. Strict I and O (4) Leukocytosis Status: Acute Problem Text: Leukocytosis: Patient WBC count is 16.6, but he is afebrile. Heart rate slightly elevated to 101, but blood pressure is stable . He will be started on empiric antibiotics, Zosyn 3.375 mg IV every 6 hours Urine and blood cultures have been ordered CBC in a.m. (5) Esophageal adenocarcinoma Status: Chronic Problem Text: Patient follows up with at the cancer treatment [facility] , I called and discussed with Dr. Patricia Reyes, who was covering for Dr. Branch as he is not available today . She recommended to get the CT head with contrast which is unlikely as esophageal cancer. Most of the time does not metastasize to brain , But she agreed with IV hydration and correcting patient's kidney functions before he is considered a candidate for chemotherapy . She will leave a message for Dr. branch to come and see the patient and speak with the family regarding future plan, including chemotherapy Spoke with patient's in detail regarding DNR, DNI" status, but she wishes full full code at the present time (6) Liver metastases Onset Date: 09/21/2019 Status: Acute Problem Text: CA esophagus stage IV with liver metastases Liver enzymes. He is to be elevated since the previous visit Patient recently had a CAT scan of the abdomen and pelvis done as an outpatient, which had confirmed the liver metastases Will order ammonia level today Continue monitoring liver enzymes (7) Decreased ambulation status Status: Acute Problem Text: PT, OT eval will be called once patient is more awake and alert Bed rest. In the meantime (8) Hypertension Status: Chronic Problem Text: Patient. Blood pressures under control Will hold all diuretics as an ESTUARDO inhibitor secondary to acute kidney injury and dehydration (9) Hyperlipidemia Status: Chronic Problem Text: Hold by mouth meds (10) Gout Status: Chronic Problem Text: Continue by mouth meds (11) Dementia Status: Chronic Problem Text: Continue by mouth meds (12) Psoriasis Status: Chronic Problem Text: Continue home meds (13) Iron deficiency anemia Status: Chronic Problem Text: Continue home meds Plan / VTE VTE Prophylaxis Ordered?: Yes JATINDER QUEEN MD Nov 06, 2019 13:36
[2019-11-06 15:16] LABS: AMPHETAMINES LEVEL URINE NEGATIVE (NEGATIVE); BARBITURATES URINE NEGATIVE (NEGATIVE); BENZODIAZEPINES URINE NEGATIVE (NEGATIVE); CANNABINOIDS URINE NEGATIVE (NEGATIVE); COCAINE METABOLITE URINE NEGATIVE (NEGATIVE); METHADONE URINE NEGATIVE (NEGATIVE); OPIATES URINE NEGATIVE (NEGATIVE); PHENCYCLIDINE URINE NEGATIVE (NEGATIVE)
[2019-11-06 17:00] VITALS: BP 130/60
[2019-11-06] MEDS: DONEPEZIL 5 MG TAB PO SCH (17:58)
[2019-11-06] MEDS: D5W/0.9% SODIUM CHLORIDE 1,000 ML IV SCH (17:58)
[2019-11-06] MEDS: ASPIRIN 81 MG ENTERIC TAB PO SCH (17:58)
[2019-11-06] MEDS: allopurinoL 300 MG TAB PO SCH (17:58)
[2019-11-06] MEDS: BUDESONIDE 0.5 MG/2 ML INHALATION SUSPENSION NEB SCH (19:40)
[2019-11-06] MEDS ORDERED: BUDESONIDE 0.5 MG/2 ML INHALATION SUSPENSION NEB SCH (21:00)
[2019-11-06] MEDS ORDERED: FLUTICASONE PROP 0.05% NASAL SPRAY 16 GM (FLONASE) NARES SCH (21:00)
--- NOTE | 2019-11-06 21:32 | ECGEPIP ---
[facility] - ED Test Date: 2019-11-06 Pat Name: GUALBERTO KERN Department: Room: - Gender: Male Loom Doffer: lore : 1945 Requested By: RAVINDER Gunter Order Number: [id number] Reading MD: Ilya Cortes Measurements Intervals [place] Rate: 103 P: -6 MD: 152 QRS: -31 QRSD: 144 T: -24 QT: 329 QTc: 432 Interpretive Statements SINUS TACHYCARDIA RIGHT BUNDLE BRANCH BLOCK INFERIOR MYOCARDIAL INFARCTION, OF INDETERMINATE AGE SIMILAR TO 10/25/19 Electronically Signed on 11-06-2019 21:32:05 EDT by Ilya Cortes
[2019-11-06 22:00] VITALS: BP 129/81
[2019-11-06] MEDS: LATANOPROST 0.005% OPHTH SOLN 2.5 ML OU SCH (22:52)
[2019-11-06] MEDS: MONTELUKAST 10 MG TAB PO SCH (22:52)
[2019-11-07 06:00] VITALS: BP 113/62
[2019-11-07 06:49] LABS: HEMATOCRIT 36.4 % (42.0-52.0); HEMOGLOBIN 11.7 g/dl (13.5-17.5); MEAN CORPUSCULAR HEMOGLOBIN 32.1 pg (27.0-33.0); MEAN CORPUSCULAR HGB CONC 32.1 g/dl (32.0-36.5); PLATELET COUNT, AUTOMATED 331 10^3/uL (150-450); RED BLOOD COUNT 3.64 10^6/uL (4.30-6.10); WHITE BLOOD COUNT 14.7 10^3/uL (4.0-10.0)
[2019-11-07] MEDS: BUDESONIDE 0.5 MG/2 ML INHALATION SUSPENSION NEB SCH ×2 (07:11→20:17)
[2019-11-07 07:12] LABS: ALBUMIN 2.4 GM/DL (3.2-5.2); BILIRUBIN,TOTAL 1.6 MG/DL (0.2-1.0); CALCIUM LEVEL 10.2 MG/DL (8.8-10.2); CREATININE FOR GFR 1.56 MG/DL (0.70-1.30); GLOMERULAR FILTRATION RATE 46.3 (>42); MAGNESIUM LEVEL 2.3 MG/DL (1.8-2.4); TOTAL PROTEIN 6.7 GM/DL (6.4-8.2)
[2019-11-07] MEDS: D5W/0.9% SODIUM CHLORIDE 1,000 ML IV SCH ×2 (10:16→11:15)
[2019-11-07] MEDS: ASPIRIN 81 MG ENTERIC TAB PO SCH (10:16)
[2019-11-07] MEDS: HEPARIN SOD (PORCINE) 5000UNITS/ML VIAL (J1644 PER 1000UNITS) SC SCH (10:16)
[2019-11-07] MEDS: DONEPEZIL 5 MG TAB PO SCH (10:16)
[2019-11-07] MEDS: allopurinoL 300 MG TAB PO SCH (10:16)
[2019-11-07] MEDS: DOCUSATE SODIUM 100 MG CAP PO SCH ×2 (10:16→21:03)
[2019-11-07 12:10] LABS: INR 1.28; PROTHROMBIN TIME 15.7 SECONDS (11.8-14.0)
[2019-11-07 14:00] VITALS: BP 116/52
--- NOTE | 2019-11-07 20:31 | IPNPDOC ---
Text Note Date of Service The patient was seen on 11/07/19. NOTE Subjective: Complains of feeling very weak and tired, Says feeling hungry and would like to try some food. Physical Exam: Vitals: as below General Exam: Awake , alert, conversant, sitting up in bed in no acute distress. Eye Exam: Positive: PERRLA, Conjunctiva & lids normal ENT Exam: Positive: Atraumatic Neck Exam: Positive: Supple, no jvd Chest Exam: Positive: Bilateral vesicular breath sounds, clear to auscultation. Heart Exam: Positive: Rate Normal, Normal S1, Normal S2, no rub, murmur or gallop Abdomen Exam: Positive: Normal bowel sounds, soft, nontender. Extremity Exam: Positive: Normal pulses, no edema. Neuro Exam: No focal neurodeficits. Psych Exam: awake, alert and oriented. Labs and Radiology : Reviewed. Assessment and Plan: This is a 74 years old white male with past medical history of Stage IV esophageal carcinoma with mets to liver and now lungs, s/p chemo radiation, status post aborted esophagectomy in august due to discovery of liver mets during surgery, planned for palliative chemotherapy, Episodes of dehydration and ZHANNA due to poor oral intake, dysphagia, chronic back pain, COPD, asthma, obstructive sleep apnea, GERD, hypertension, Gout, Dementia, CKD stage 3, Obesity/ TUSHAR, hyperlipidemia, diverticulosis, peptic ulcer disease, psoriasis, cataracts, dry eye syndrome, osteoarthritis, was brought by his due to weakness, lethargy, confusion and fall at home. He tried to walk with a walker and his legs just gave way. He has been unable to eat or drink much at home for the past several days. Recent admission from - for dehydration and ZHANNA. Patient was again admitted for Dehydration, ZHANNA, metabolic encephalop athy. Dehydration and ZHANNA resolving. due to poor oral intake due to metastatic esophageal cancer and dysphagia from it. continue IVF, no diuretics. Full liquid diet. ZHANNA on CKD stage 3 prerenal due to poor oral intake on the back ground of diuretics and ARB and chronic NSAID use. will dc losartan and diclofenac and spironolactone on discharge. continue IVF. Acute metabolic encephalopathy on the back ground of Dementia due to dehydration and medications baclofen, tramadol, lyrica. Now resolved. Hyperkalemia resolved due to ZHANNA and spironolactone Leukocytosis reactive , cancer. 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 planned for initiation of palliative chemotherapy next week . Discussed with Dr Reyes and Dr Branch. Will need PEG tube first. Consulted Dr Renae for PEG tube placement . Planned for 11/08/19 afternoon. To be NPO after midnight for procedure, hold heparin. Transaminitis due to extensive liver mets No obstruction in the CBD or GB issues seen in CT abd. Decreased ambulation status PT and OT. Hypertension Will hold all diuretics as an ESTUARDO inhibitor secondary to acute kidney injury and dehydration Hyperlipidemia fenofibrate Obesity/TUSHAR COPD/ Asthma GERD/PUD PPI Gout allopurinol Dementia donepezil Psoriasis Chronic anemia with macrocytosis H/o iron def before on supplements, now no def, No Vit B12 or folate def. VS,Fishbone, I+O VS, Fishbone, I+O Laboratory Tests 11/07/19 06:37 Vital Signs Date Time Temp Pulse Resp B/P (MAP) Pulse Ox O2 Delivery O2 Flow Rate FiO2 11/07/19 06:00 96.9 92 19 113/62 (79) 92 Nasal Cannula 2.0 I&O- Last 24 Hours up to 6 AM 11/07/19 07:00 Intake Total 1400 ml Output Total 1300 ml Balance 100 ml SUZANNE GIBSON MD Nov 07, 2019 20:31
[2019-11-07] MEDS: LATANOPROST 0.005% OPHTH SOLN 2.5 ML OU SCH (21:00)
[2019-11-07] MEDS: MONTELUKAST 10 MG TAB PO SCH (21:03)
[2019-11-07 22:00] VITALS: BP 122/58
[2019-11-08] MEDS: D5W/0.9% SODIUM CHLORIDE 1,000 ML IV SCH ×3 (02:47→20:36)
[2019-11-08 06:00] VITALS: BP 126/68
[2019-11-08 06:33] LABS: BASO % 0.3 % (0.0-1.0); EOS # 0.1 10^3/uL (0.0-0.5); EOS % 0.9 % (0.0-3.0); HEMATOCRIT 34.2 % (42.0-52.0); LYMPH # 0.9 10^3/uL (1.5-5.0); LYMPH % 6.9 % (24.0-44.0); MEAN CORPUSCULAR HEMOGLOBIN 31.9 pg (27.0-33.0); MEAN CORPUSCULAR HGB CONC 32.2 g/dl (32.0-36.5); MEAN CORPUSCULAR VOLUME 99.1 fl (80.0-96.0); MONO # 1.2 10^3/uL (0.0-0.8); MONO % 9.4 % (0.0-5.0); NEUTROPHILS # 9.6 10^3/uL (1.5-8.5); PLATELET COUNT, AUTOMATED 333 10^3/uL (150-450); RED BLOOD COUNT 3.45 10^6/uL (4.30-6.10); WHITE BLOOD COUNT 12.3 10^3/uL (4.0-10.0)
[2019-11-08 06:59] LABS: BLOOD UREA NITROGEN 36 MG/DL (7-18); CALCIUM LEVEL 9.7 MG/DL (8.8-10.2); CARBON DIOXIDE LEVEL 27 MEQ/L (21-32); CHLORIDE LEVEL 110 MEQ/L (98-107); CREATININE FOR GFR 1.22 MG/DL (0.70-1.30); GLOMERULAR FILTRATION RATE > 60.0 (>42); GLUCOSE, FASTING 107 MG/DL (70-100); POTASSIUM SERUM 4.6 MEQ/L (3.5-5.1); SODIUM LEVEL 142 MEQ/L (136-145)
[2019-11-08] MEDS: BUDESONIDE 0.5 MG/2 ML INHALATION SUSPENSION INH SCH ×2 (07:53→19:34)
[2019-11-08] MEDS: TIOTROPIUM INHALER/CAPSULE (SPIRIVA) INH SCH (07:53)
[2019-11-08] MEDS: FORMOTEROL FUMARATE 20 MCG/2 ML INHALATION SOLUTION (PERFOROMIST) INH SCH ×2 (07:54→19:33)
[2019-11-08] MEDS: ASPIRIN 81 MG ENTERIC TAB PO SCH (09:00)
[2019-11-08] MEDS: DONEPEZIL 5 MG TAB PO SCH (09:00)
[2019-11-08] MEDS: allopurinoL 300 MG TAB PO SCH (09:00)
[2019-11-08] MEDS: DOCUSATE SODIUM 100 MG CAP PO SCH ×2 (09:00→20:58)
[2019-11-08] MEDS: PANTOPRAZOLE 40MG VIAL (C9113 PER 1) IV SCH (09:00)
--- NOTE | 2019-11-08 11:38 | IPNPDOC ---
Text Note Date of Service The patient was seen on 11/08/19. NOTE Subjective: Complains of feeling very weak and tired, Going for PEG tube plac ement today. Physical Exam: Vitals: as below General Exam: Awake , alert, conversant, sitting up in bed in no acute distress. Eye Exam: Positive: PERRLA, Conjunctiva & lids normal ENT Exam: Positive: Atraumatic Neck Exam: Positive: Supple, no jvd Chest Exam: Positive: Bilateral vesicular breath sounds, clear to auscultation. Heart Exam: Positive: Rate Normal, Normal S1, Normal S2, no rub, murmur or gallop Abdomen Exam: Positive: Normal bowel sounds, soft, nontender. Extremity Exam: Positive: Normal pulses, no edema. Neuro Exam: No focal neurodeficits. Psych Exam: awake, alert and oriented. Labs and Radiology : Reviewed. Assessment and Plan: This is a 74 years old white male with past medical history of Stage IV esophageal carcinoma with mets to liver and now lungs, s/p chemo radiation, status post aborted esophagectomy in august due to discovery of liver mets during surgery, planned for palliative chemotherapy, Episodes of dehydration and ZHANNA due to poor oral intake, dysphagia, chronic back pain, COPD, asthma, obstructive sleep apnea, GERD, hypertension, Gout, Dementia, CKD stage 3, Obesity/ TUSHAR, hyperlipidemia, diverticulosis, peptic ulcer disease, psoriasis, cataracts, dry eye syndrome, osteoarthritis, was brought by his due to weakness, lethargy, confusion and fall at home. He tried to walk with a walker and his legs just gave way. He has been unable to eat or drink much at home for the past several days. Recent admission from - for dehydration and ZHANNA. Patient was again admitted for Dehydration, ZHANNA, metabolic encephalopathy. Dehydration and ZHANNA resolved due to poor oral intake due to metastatic esophageal cancer and dysphagia from i t. continue IVF, no diuretics. Full liquid diet. Dysphagia from Esophageal cancer for PEG tube placement dietary consult for recommendation for tube feeding. ZHANNA on CKD stage 3 prerenal due to poor oral intake on the back ground of diuretics and ARB and chronic NSAID use. will dc losartan and diclofenac and spironolactone on discharge. continue IVF. Acute metabolic encephalopathy on the back ground of Dementia due to dehydration and medications baclofen, tramadol, lyrica. Now resolved. Hyperkalemia resolved due to ZHANNA and spironolactone Leukocytosis reactive , cancer. 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 planned for initiation of palliative chemotherapy next week . Discussed with Dr Reyes and Dr Branch. Will need PEG tube first. Consulted Dr Renae for PEG tube placement . Planned for 11/08/19 afternoon. Transaminitis due to extensive liver mets No obstruction in the CBD or GB issues seen in CT abd. Decreased ambulation status PT and OT. Hypertension Will hold all diuretics as an ESTUARDO inhibitor secondary to acute kidney injury and dehydration Hyperlipidemia fenofibrate Obesity/TUSHAR COPD/ Asthma GERD/PUD PPI Gout allopurinol Dementia donepezil Psoriasis Chronic anemia with macrocytosis H/o iron def before on supplements, now no def, No Vit B12 or folate def. VS,Fishbone, I+O VS, Fishbone, I+O Laboratory Tests 11/08/19 05:43 Vital Signs Date Time Temp Pulse Resp B/P (MAP) Pulse Ox O2 Delivery O2 Flow Rate FiO2 11/08/19 11:31 98.9 86 18 96 Room Air 11/08/19 06:00 126/68 (87) 2.0 I&O- Last 24 Hours up to 6 AM 11/08/19 06:00 Intake Total 2160 ml Output Total 1325 ml Balance 835 ml SUZANNE GIBSON MD Nov 08, 2019 11:38
[2019-11-08] MEDS ORDERED: diphenhydrAMINE 50MG/ML VIAL (J1200) As Ordered ONE (12:32)
[2019-11-08] MEDS ORDERED: fentaNYL 100 MCG/2 ML INJECTION (J3010) As Ordered ONE (12:32)
[2019-11-08] MEDS ORDERED: MIDAZOLAM INJ 2MG/2ML VIAL (J2250 PER 1MG) As Ordered ONE (12:32)
[2019-11-08] MEDS ORDERED: ISOVUE-300 61% 50ML VIAL As Ordered ONE (12:34)
[2019-11-08] MEDS ORDERED: LIDOCAINE 1% MDV 20ML VIAL As Ordered ONE (12:34)
[2019-11-08] MEDS ORDERED: LIDOCAINE 2% JELLY 30ML As Ordered ONE (12:36)
[2019-11-08] MEDS ORDERED: ceFAZolin 1GM VIAL (J0690 PER 500MG) As Ordered ONE (12:36)
[2019-11-08] MEDS ORDERED: ceFAZolin SOD 2 GM in IV 1 EA IV ONE (12:45)
[2019-11-08] MEDS ORDERED: GLUCAGON INJ 1MG VIAL As Ordered ONE (13:07)
[2019-11-08 14:00] VITALS: BP 131/69
--- NOTE | 2019-11-08 14:08 | IRMSE ---
[facility] IR Moderate Sedation Eval. Date and Time Date: Nov 08, 2019 Time: 12:52 ASA Classification ASA Classification: III-Severe systemic dis. Mallampati Score: II, III NPO: Yes Obstructive Sleep Apnea: No Interval Plan: moderate sedation MYRON PEREZ MD Nov 08, 2019 14:08
--- NOTE | 2019-11-08 14:10 | POST-OPPD ---
Postoperative Procedure Note Date Of Procedure: Nov 08, 2019 Time Of Procedure: 14:08 PREOPERATIVE DIAGNOSIS: esophageal cancer POSTOPERATIVE DIAGNOSIS:same FINDINGS: hiatal hernia PROCEDURE: 18 F G tube placed. To remain to drainage for 24 hours. Maybe used WEDNESDAY after 1600 hours 11/09/19. SURGEON: andria ANESTHESIA: mod sed ESTIMATED BLOOD LOSS: < 5 ml COMPLICATIONS: none POSTOPERATIVE CONDITION: stable MYRON PEREZ MD Nov 08, 2019 14:10
[2019-11-08] MEDS ORDERED: PERCOCET 5MG/325MG TAB PO PRN (19:15)
[2019-11-08] MEDS: MONTELUKAST 10 MG TAB PO SCH (20:58)
[2019-11-08] MEDS: LATANOPROST 0.005% OPHTH SOLN 2.5 ML OU SCH (20:58)
[2019-11-08 22:00] VITALS: BP 130/90
[2019-11-09 06:00] VITALS: BP 155/77
[2019-11-09 06:20] LABS: BASO # 0.1 10^3/uL (0.0-0.2); BASO % 0.5 % (0.0-1.0); EOS # 0.1 10^3/uL (0.0-0.5); EOS % 0.8 % (0.0-3.0); HEMATOCRIT 36.6 % (42.0-52.0); HEMOGLOBIN 11.9 g/dl (13.5-17.5); LYMPH # 0.7 10^3/uL (1.5-5.0); LYMPH % 6.1 % (24.0-44.0); MEAN CORPUSCULAR HEMOGLOBIN 32.3 pg (27.0-33.0); MEAN CORPUSCULAR HGB CONC 32.5 g/dl (32.0-36.5); MEAN CORPUSCULAR VOLUME 99.5 fl (80.0-96.0); MONO # 1.1 10^3/uL (0.0-0.8); MONO % 9.4 % (0.0-5.0); NEUTROPHILS # 8.7 10^3/uL (1.5-8.5); NEUTROPHILS % 78.2 % (36.0-66.0); PLATELET COUNT, AUTOMATED 351 10^3/uL (150-450); RED BLOOD COUNT 3.68 10^6/uL (4.30-6.10); WHITE BLOOD COUNT 11.2 10^3/uL (4.0-10.0)
[2019-11-09 06:39] LABS: BLOOD UREA NITROGEN 25 MG/DL (7-18); CALCIUM LEVEL 9.5 MG/DL (8.8-10.2); CARBON DIOXIDE LEVEL 28 MEQ/L (21-32); CHLORIDE LEVEL 111 MEQ/L (98-107); CREATININE FOR GFR 1.05 MG/DL (0.70-1.30); GLOMERULAR FILTRATION RATE > 60.0 (>42); GLUCOSE, FASTING 106 MG/DL (70-100); SODIUM LEVEL 144 MEQ/L (136-145)
[2019-11-09] MEDS: BUDESONIDE 0.5 MG/2 ML INHALATION SUSPENSION INH SCH ×2 (07:07→20:36)
[2019-11-09] MEDS: FORMOTEROL FUMARATE 20 MCG/2 ML INHALATION SOLUTION (PERFOROMIST) INH SCH ×2 (07:07→20:36)
[2019-11-09] MEDS: TIOTROPIUM INHALER/CAPSULE (SPIRIVA) INH SCH (07:07)
[2019-11-09] MEDS: HEPARIN SOD (PORCINE) 5000UNITS/ML VIAL (J1644 PER 1000UNITS) SC SCH ×2 (09:39→20:28)
[2019-11-09] MEDS: DONEPEZIL 5 MG TAB PO SCH (09:40)
[2019-11-09] MEDS: DOCUSATE SODIUM 100 MG CAP PO SCH ×2 (09:40→20:28)
[2019-11-09] MEDS: PANTOPRAZOLE 40MG VIAL (C9113 PER 1) IV SCH (09:40)
[2019-11-09] MEDS: allopurinoL 300 MG TAB PO SCH (09:40)
[2019-11-09] MEDS: ASPIRIN 81 MG ENTERIC TAB PO SCH (09:40)
[2019-11-09] MEDS: D5W/0.9% SODIUM CHLORIDE 1,000 ML IV SCH (12:08)
--- NOTE | 2019-11-09 13:01 | IPNPDOC ---
Text Note Date of Service The patient was seen on 11/09/19. NOTE Subjective: Seen this am sitting up in chair. Wants to go home. PEG tube in p casandra will start using it this pm. Physical Exam: Vitals: as below General Exam: Awake , alert, conversant, sitting up in bed in no acute distress. Eye Exam: Positive: PERRLA, Conjunctiva & lids normal ENT Exam: Positive: Atraumatic Neck Exam: Positive: Supple, no jvd Chest Exam: Positive: Bilateral vesicular breath sounds, clear to auscultation. Heart Exam: Positive: Rate Normal, Normal S1, Normal S2, no rub, murmur or gallop Abdomen Exam: Positive: Normal bowel sounds, soft, nontender. Extremity Exam: Positive: Normal pulses, no edema. Neuro Exam: No focal neurodeficits. Psych Exam: awake, alert and oriented. Labs and Radiology : Reviewed. Assessment and Plan: This is a 74 years old white male with past medical history of Stage IV esophageal carcinoma with mets to liver and now lungs, s/p chemo radiation, status post aborted esophagectomy in august due to discovery of liver mets during surgery, planned for palliative chemotherapy, Episodes of dehydration and ZHANNA due to poor oral intake, dysphagia, chronic back pain, COPD, asthma, obstructive sleep apnea, GERD, hypertension, Gout, Dementia, CKD stage 3, Obesity/ TUSHAR, hyperlipidemia, diverticulosis, peptic ulcer disease, psoriasis, cataracts, dry eye syndrome, osteoarthritis, was brought by his due to weakness, lethargy, confusion and fall at home. He tried to walk with a walker and his legs just gave way. He has been unable to eat or drink much at home for the past several days. Recent admission from - for dehydration and ZHANNA. Patient was again admitted for Dehydration, ZHANNA, metabolic enceph alopathy. Dehydration and ZHANNA resolved due to poor oral intake due to metastatic esophageal cancer and dysphagia from it. continue IVF, no diuretics. Full liquid diet. Dysphagia from Esophageal cancer for PEG tube placement dietary consult for recommendation for tube feeding pending will start with Jevity 1.5 4 cans/day with free water 200 cc every 6 hours ZHANNA on CKD stage 3 Now resolved. prerenal due to poor oral intake on the back ground of diuretics and ARB and chronic NSAID use. will dc losartan and diclofenac and spironolactone on discharge. Acute metabolic encephalopathy on the back ground of Dementia due to dehydration and medications baclofen, tramadol, lyrica. Now resolved. Hyperkalemia resolved due to ZHANNA and spironolactone Leukocytosis reactive , cancer. 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 planned for initiation of palliative chemotherapy next week . Discussed with Dr Reyes and Dr Branch. Will need PEG tube first. Consulted Dr Renae for PEG tube placement . Planned for 11/08/19 afternoon. Transaminitis due to extensive liver mets No obstruction in the CBD or GB issues seen in CT abd. Decreased ambulation status PT and OT. Hypertension Will hold all diuretics as an ESTUARDO inhibitor secondary to acute kidney injury and dehydration Hyperlipidemia fenofibrate Obesity/TUSHAR COPD/ Asthma GERD/PUD PPI Gout allopurinol Dementia donepezil Psoriasis Chronic anemia with macrocytosis H/o iron def before on supplements, now no def, No Vit B12 or folate def. VS,Fishbone, I+O VS, Fishbone, I+O Laboratory Tests 11/09/19 05:53 Vital Signs Date Time Temp Pulse Resp B/P (MAP) Pulse Ox O2 Delivery O2 Flow Rate FiO2 11/09/19 06:00 97.8 89 18 155/77 (103) 94 Room Air 11/08/19 13:38 2 I&O- Last 24 Hours up to 6 AM 11/09/19 06:00 Intake Total 1505 ml Output Total 2835 ml Balance -1330 ml SUZANNE GIBSON MD Nov 09, 2019 13:01
[2019-11-09 14:00] VITALS: BP_SYST 147; BP_SYST 188; BP_DIAS 73; BP_DIAS 87
[2019-11-09] MEDS: MONTELUKAST 10 MG TAB PO SCH (20:28)
[2019-11-09] MEDS: LATANOPROST 0.005% OPHTH SOLN 2.5 ML OU SCH (20:28)
[2019-11-09 21:23] VITALS: BP 152/80
[2019-11-09 22:00] VITALS: BP 171/84
[2019-11-10 06:00] VITALS: BP 119/72
[2019-11-10 06:33] LABS: HEMATOCRIT 36.6 % (42.0-52.0); HEMOGLOBIN 11.8 g/dl (13.5-17.5); MEAN CORPUSCULAR HEMOGLOBIN 31.3 pg (27.0-33.0); MEAN CORPUSCULAR HGB CONC 32.2 g/dl (32.0-36.5); MEAN CORPUSCULAR VOLUME 97.1 fl (80.0-96.0); PLATELET COUNT, AUTOMATED 334 10^3/uL (150-450); RED BLOOD COUNT 3.77 10^6/uL (4.30-6.10)
[2019-11-10 06:53] LABS: BLOOD UREA NITROGEN 23 MG/DL (7-18); CARBON DIOXIDE LEVEL 24 MEQ/L (21-32); CHLORIDE LEVEL 111 MEQ/L (98-107); CREATININE FOR GFR 1.03 MG/DL (0.70-1.30); GLOMERULAR FILTRATION RATE > 60.0 (>42); GLUCOSE, FASTING 117 MG/DL (70-100); SODIUM LEVEL 143 MEQ/L (136-145)
[2019-11-10 06:57] LABS: ATYPICAL LYMPH 3 % (0-5); LYMPHOCYTES 3 % (16-44); METAMYELOCYTES 1 % (0-0); MONOCYTES 4 % (0-5); NEUTROPHILS 88 % (28-66)
[2019-11-10 06:58] LABS: ANISOCYTOSIS 1+; PLATELET ESTIMATE NORMAL (NORMAL)
[2019-11-10] MEDS: TIOTROPIUM INHALER/CAPSULE (SPIRIVA) INH SCH (07:13)
[2019-11-10] MEDS: BUDESONIDE 0.5 MG/2 ML INHALATION SUSPENSION INH SCH (07:13)
[2019-11-10] MEDS: FORMOTEROL FUMARATE 20 MCG/2 ML INHALATION SOLUTION (PERFOROMIST) INH SCH (07:13)
[2019-11-10] MEDS: PANTOPRAZOLE 40MG VIAL (C9113 PER 1) IV SCH (09:41)
[2019-11-10] MEDS: allopurinoL 300 MG TAB PO SCH (09:42)
[2019-11-10] MEDS: HEPARIN SOD (PORCINE) 5000UNITS/ML VIAL (J1644 PER 1000UNITS) SC SCH (09:42)
[2019-11-10] MEDS: ASPIRIN 81 MG ENTERIC TAB PO SCH (09:42)
[2019-11-10] MEDS: DOCUSATE SODIUM 100 MG CAP PO SCH (09:42)
[2019-11-10] MEDS: DONEPEZIL 5 MG TAB PO SCH (09:42)
[2019-11-10 14:00] VITALS: BP 163/72
--- NOTE | 2019-11-10 16:07 | DS.PDOC ---
Discharge Summary General Date of Admission Nov 06, 2019 at 12:47 Date of Discharge 11/10/19 Discharge Summary PROCEDURES PERFORMED DURING STAY: [None]. 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 Transaminitis due to metastasis SECONDARY DIAGNOSIS: Dementia, Dysphagia, chronic back pain, COPD, asthma, obstructive sleep apnea, GERD, hypertension, Gout, Dementia, CKD stage 3, Obesity/ TUSHAR, hyperlipidemia, diverticulosis, peptic ulcer disease, psoriasis, cataracts, dry eye syndrome, osteoarthritis, Chronic anemia with macrocytosis COMPLICATIONS/CHIEF COMPLAINT: Acute Kidney Injury Dehydration. HOSPITAL COURSE: This is a 74 years old white male with past medical history of Stage IV esophageal carcinoma with mets to liver and now lungs, s/p chemo radiation, status post aborted esophagectomy in August due to discovery of liver mets during surgery, planned for palliative chemotherapy, Episodes of dehydration and ZHANNA due to poor oral intake due to confusion, dysphagia, chronic back pain, COPD, asthma, obstructive sleep apnea, GERD, hypertension, Gout, Dementia, CKD stage 3, Obesity/ TUSHAR, hyperlipidemia, diverticulosis, peptic ulcer disease, psoriasis, cataracts, dry eye syndrome, osteoarthritis, was brought by his due to weakness, lethargy, confusion and fall at home. He tried to walk with a walker and his legs just gave way. He has been unable to eat or drink much at home for the past several days. Recent admission from - for dehydration and ZHANNA. Patient was again admitted for Dehydration, ZHANNA, metabolic encephalopathy. Acute metabolic encephalopathy on the back ground of Dementia due to possibly medications baclofen, tramadol, lyrica leading to poor oral intake and dehydration Now resolved. Dehydration and ZHANNA resolved due to poor oral intake due confusion related to possibly medications and metastatic esophageal cancer and dysphagia from it. Full liquid diet. additional Tube feeding twice a day. Distal Esophageal cancer s/p PEG tube placement in anticipation of severe dysphagia which may occur with chemotherapy. ZHANNA on CKD stage 3 Now resolved. prerenal due to poor oral intake on the back ground of diuretics and ARB and chronic NSAID use. dc diclofenac and spironolactone and bumax on discharge. restart losartan Hyperkalemia resolved due to ZHANNA and spironolactone Leukocytosis reactive / cancer. 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 planned for initiation of palliative chemotherapy next week . Discussed with Dr Reyes and Dr Branch. PEG tube placed 11/08/19 Transaminitis due to extensive liver mets No obstruction in the CBD or GB issues seen in CT abd. Decreased ambulation status PT and OT. Hypertension continue losartan Hyperlipidemia fenofibrate Obesity/TUSHAR COPD/ Asthma GERD/PUD PPI Gout allopurinol Dementia donepezil Psoriasis Chronic anemia with macrocytosis H/o iron def before on supplements, now no def, No Vit B12 or folate def. DISCHARGE MEDICATIONS: Please see below. ALLERGIES: Please see below. PHYSICAL EXAMINATION ON DISCHARGE: VITAL SIGNS: Please see below. General Exam: Awake , alert, conversant, sitting up in bed in no acute distress. Eye Exam: Positive: PERRLA, Conjunctiva & lids normal ENT Exam: Positive: Atraumatic Neck Exam: Positive: Supple, no jvd Chest Exam: Positive: Bilateral vesicular breath sounds, clear to auscultation. Heart Exam: Positive: Rate Normal, Normal S1, Normal S2, no rub, murmur or gallop Abdomen Exam: Positive: Normal bowel sounds, soft, nontender. Extremity Exam: Positive: Normal pulses, no edema. Neuro Exam: No focal neurodeficits. Psych Exam: awake, alert and oriented. LABORATORY DATA: Please see below. ACTIVITY: [As tolerated]. DIET: Full liquids and tube feeding. DISPOSITION: Home, Self-Care. DISCHARGE INSTRUCTIONS: Follow up with oncology on 11/13/19 DISCHARGE CONDITION: [Stable]. TIME SPENT ON DISCHARGE: 35 minutes. Vital Signs/I&Os Vital Signs Date Time Temp Pulse Resp B/P (MAP) Pulse Ox O2 Delivery O2 Flow Rate FiO2 11/10/19 14:00 105 18 163/72 (102) 97 Room Air 11/10/19 06:00 98.2 11/08/19 13:38 2 I&O- Last 24 Hours up to 6 AM 11/10/19 07:00 Intake Total 1140 ml Output Total 925 ml Balance 215 ml Laboratory Data Labs 24H Laboratory Tests 2 11/10/19 06:14: Immature Granulocyte % (Auto) , Neutrophils (%) (Auto) , Nucleated Red Blood Cells % (auto) 0.0, Neutrophils 88H, Band Neutrophils 1, Lymphocytes (Manual) 3L, Monocytes (Manual) 4, Metamyelocytes 1H, Atypical Lymphocytes 3, Anisocytosis 1+, Platelet Estimate NORMAL, Anion Gap 8, Glomerular Filtration Rate > 60.0, Calcium Level 10.0 CBC/BMP Laboratory Tests 11/10/19 06:14 Microbiology Microbiology 11/06/19 Blood Culture - Preliminary, Resulted No Growth after 72 hours. All specime... Discharge Medications Scheduled Allopurinol (Zyloprim) 300 Mg Tab, 300 MG PO DAILY, (Reported) Arformoterol Tartrate (Brovana) 15 Mcg/2 Ml Vial.neb, 1 VIAL NEB BID, (Reported) MIX WITH BUDESONIDE Ascorbic Acid (Vitamin C) 500 Mg Tab, 500 MG PO DAILY, (Reported) Aspirin (Aspirin EC) 81 Mg Tab, 81 MG PO DAILY, (Reported) Budesonide (Budesonide) 0.5 Mg/2 Ml Neb, 1 VIAL NEB BID, (Reported) WITH BROVANA Cetirizine HCl (Cetirizine HCl) 5 Mg Tablet, 5 MG PO QHS, (Reported) Cyclosporine (Restasis) 0.05% Droperette, 1 DROP OU DAILY, (Reported) Donepezil HCl (Aricept) 10 Mg Tab, 10 MG PO DAILY, (Reported) Ezetimibe (Zetia) 10 Mg Tablet, 10 MG PO QHS, (Reported) Fenofibric Acid (Choline) (Fenofibric Acid) 135 Mg Cap, 135 MG PO QHS, (Reported) Glucosam/Arthur-Msm1/C/Steve/Bosw (Osteo Bi-Flex Caplet) 1 Each Tablet, 2 TAB PO DAILY, (Reported) Guaifenesin (Mucinex) 600 Mg Tab.er.12h, 600 MG PO BID, (Reported) Latanoprost (Xalatan) 0.005% 2.5ML Drops, 1 DROP OU QHS, (Reported) Losartan Potassium (Losartan Potassium) 25 Mg Tablet, 25 MG PO DAILY, (Reported) Magnesium Oxide (Magnesium Oxide) 400 Mg Tablet, 400 MG PO BID, (Reported) Mometasone Furoate Monohydrate (Nasonex) 120 [place]/17 Gm Naspr, 1 SPRAY NARES BID, (Reported) Montelukast Sodium (Singulair) 10 Mg Tab, 10 MG PO QHS, (Reported) Multivitamins (Thera M Plus Tablet) 1 Tab Tab, 1 TAB PO DAILY, (Reported) Omeprazole (Omeprazole) 40 Mg Capsule.dr, 40 MG PO DAILY, (Reported) Pramipexole Di-HCl (Mirapex) 0.125 Mg Tab, 0.125 MG PO QHS, (Reported) Pregabalin (Lyrica) 75 Mg Capsule, 75 MG PO TID, (Reported) Psyllium Husk (Fiber) 0.52 Gm Capsule, 0.52 GM PO DAILY, (Reported) Sulfasalazine (Sulfasalazine) 500 Mg Tab, 1,000 MG PO DAILY, (Reported) Ubidecarenone (Co Q-10) 200 Mg Capsule, 400 MG PO DAILY, (Reported) Umeclidinium Brm/Vilanterol Tr (Anoro Ellipta 62.5-25 Mcg INH) 1 Each Blst.w.dev, 1 PUFF INH DAILY, (Reported) Vitamin B Complex (Vitamin B Complex) 1 Each Tablet, 1 TAB PO DAILY, (Reported) Scheduled PRN Acetaminophen (Acetaminophen) 500 Mg Tablet, 1,000 MG PO Q6H PRN for PAIN, (Reported) Cannabidiol (Cbd Oil) Btl, 1 ML PO BID PRN for BACK PAIN, (Reported) Ondansetron HCl (Ondansetron HCl) 8 Mg Tablet, 8 MG PO Q8HP PRN for NAUSEA OR VOMITING Prochlorperazine Maleate (Prochlorperazine Maleate) 10 Mg Tablet, 10 MG PO Q8HP PRN for NAUSEA OR VOMITING Allergies Coded Allergies: thiopental (Verified Allergy, Unknown, 11/06/19) fluticasone (Verified Adverse Reaction, Mild, coughing/hacking/stuffy nose, 11/06/19) SUZANNE GIBSON MD Nov 10, 2019 16:07
[2019-11-13] MEDS ORDERED: JEVITY PEG (09:11)
--- NOTE | 2019-11-13 13:57 | REP ---
IR Gastrostomy catheter placement with fluoroscopy guidance. IR Moderate sedation. Clinical information: Esophageal cancer. Physician: Dr. Renae. Procedure: The patient and patient's healthcare proxy were advised of the benefits, risks and alternatives of the procedure and informed consent was obtained. The time-out was performed with verification of the patient's name, MRN, site of procedure and type of procedure to be performed. The patient was positioned in the supine position on the angiographic table. The site was prepped and draped in the usual sterile fashion. A 5-Macanese Kumpe catheter in conjunction with a Glidewire was inserted through the nostril under fluoroscopy guidance, down the esophagus into the stomach. The wire was removed. The catheter was taped to the nose. Moderate sedation was performed by the physician including the presence of an independent trained observer who assisted in monitoring the patient's level of consciousness and physiologic status. Following the administration of Versed and Fentanyl, the physician spent 60 minutes of continuous face to face time with the patient. A spike machine feeder radiograph reveals kumpe catheter tip in the expected location of the stomach. 1 mg of glucagon was administered intravenously. The stomach was insufflated and distended with air through the nasogastric tube. The soft tissues overlying the anticipated puncture site were anesthetized with lidocaine. A gastropexy needle was advanced into the stomach and positioning was confirmed with contrast injection. The gastropexy suture was deployed and secured in the usual fashion. A total of three gastropexy sutures were deployed under fluoroscopy guidance. An 18 gauge needle was advanced into the body of the stomach under fluoroscopy guidance. Contrast was injected through the needle documenting intragastric position. An Amplatz wire was advanced into the stomach. After serial dilation under fluoroscopy guidance, a 20-Macanese peel-away sheath was advanced over the wire into the stomach under fluoroscopy guidance. An 18-Macanese Wayn[place] gastrostomy catheter was then advanced through the peel-away sheath under fluoroscopy guidance. Contrast was injected through the gastrostomy catheter confirming position within the stomach. The balloon was insufflated and retracted to the anterior stomach wall. The catheter bumper was positioned to sandwich the anterior abdominal wall. The catheter was placed gravity drainage. The nasogastric catheter was removed. The patient tolerated the procedure well and was returned to the inpatient unit in stable condition. EBL: Less than 5 ml. Complications: None. Impression: 1. Successful percutaneous placement of 18-Macanese gastrostomy catheter. Catheter to remain to gravity drainage for 24 hours. 2. Catheter may be used 24 hours past placement. The gastropexy sutures will dissolve within 6 weeks and the buttons will fall-off. 3. Patient to follow up in IR clinic in 2 weeks. Thank you this referral. Electronically Signed by Racheal Renae MD 11/13/2019 01:56 P
== END 2019-11-10 15:19 | disposition home or self-care (01) | DRG 682 ==
LOC: M ED 08:58 → EDBD 08:58 → M ED INP 12:47 → ENRESERV 15:07 → M MSPAV 16:51
PROVIDERS: ADMIT Internal Medicine; ATTEND Internal Medicine Nephrology
PROC: BD12YZZ Fluoroscopy of Stomach using Other Contrast (ICD-10-PCS; 2019-11-08)
PROC: 0DH63UZ Insertion of Feeding Device into Stomach, Percutaneous Approach (ICD-10-PCS; principal; 2019-11-08 12:30)
DX: N17.9 Acute kidney failure, unspecified (principal); G93.41 Metabolic encephalopathy; C78.7 Secondary malignant neoplasm of liver and intrahepatic bile duct; C15.5 Malignant neoplasm of lower third of esophagus; C78.00 Secondary malignant neoplasm of unspecified lung; E86.0 Dehydration; J44.9 Chronic obstructive pulmonary disease, unspecified; G47.33 Obstructive sleep apnea (adult) (pediatric); K21.9 Gastro-esophageal reflux disease without esophagitis; I12.9 Hypertensive chronic kidney disease with stage 1 through stage 4 chronic kidney disease, or unspecified chronic kidney disease; E87.6 Hypokalemia; E78.5 Hyperlipidemia, unspecified; M10.9 Gout, unspecified; L40.9 Psoriasis, unspecified; F03.90 Unspecified dementia, unspecified severity, without behavioral disturbance, psychotic disturbance, mood disturbance, and anxiety; H04.129 Dry eye syndrome of unspecified lacrimal gland; M19.90 Unspecified osteoarthritis, unspecified site; Z79.82 Long term (current) use of aspirin; Z79.899 Other long term (current) drug therapy; Z88.8 Allergy status to other drugs, medicaments and biological substances; Z98.41 Cataract extraction status, right eye; Z98.42 Cataract extraction status, left eye; D50.9 Iron deficiency anemia, unspecified; N18.3 Chronic kidney disease, stage 3 (moderate); R74.8 Abnormal levels of other serum enzymes; E66.9 Obesity, unspecified; R13.10 Dysphagia, unspecified; D72.829 Elevated white blood cell count, unspecified

== ENCOUNTER → 2019-11-14 10:46 | Outpatient (RCR) | payer MEDICARE ==
[2019-05-05 08:15] VITALS: BP 145/75
[2019-05-05 09:26] LABS: BASO # 0.1 10^3/uL (0.0-0.2); BASO % 0.9 % (0.0-1.0); EOS # 0.3 10^3/uL (0.0-0.5); EOS % 3.2 % (0.0-3.0); HEMATOCRIT 43.2 % (42.0-52.0); HEMOGLOBIN 13.7 g/dl (13.5-17.5); LYMPH # 2.4 10^3/uL (1.5-5.0); LYMPH % 23.7 % (24.0-44.0); MEAN CORPUSCULAR HEMOGLOBIN 30.6 pg (27.0-33.0); MEAN CORPUSCULAR HGB CONC 31.7 g/dl (32.0-36.5); MEAN CORPUSCULAR VOLUME 96.6 fl (80.0-96.0); MONO # 0.9 10^3/uL (0.0-0.8); MONO % 9.1 % (0.0-5.0); NEUTROPHILS # 6.3 10^3/uL (1.5-8.5); NEUTROPHILS % 62.7 % (36.0-66.0); PLATELET COUNT, AUTOMATED 337 10^3/uL (150-450); RED BLOOD COUNT 4.47 10^6/uL (4.30-6.10)
[2019-05-05 10:13] LABS: ALBUMIN 3.5 GM/DL (3.2-5.2); ALT/SGPT 18 U/L (12-78); BILIRUBIN,TOTAL 0.3 MG/DL (0.2-1.0); BLOOD UREA NITROGEN 22 MG/DL (7-18); CALCIUM LEVEL 9.5 MG/DL (8.8-10.2); CARBON DIOXIDE LEVEL 31 MEQ/L (21-32); CHLORIDE LEVEL 105 MEQ/L (98-107); GLOMERULAR FILTRATION RATE > 60.0 (>42); GLUCOSE, FASTING 99 MG/DL (70-100); POTASSIUM SERUM 4.5 MEQ/L (3.5-5.1); SODIUM LEVEL 141 MEQ/L (136-145); TOTAL PROTEIN 7.2 GM/DL (6.4-8.2)
--- NOTE | 2019-05-08 11:14 | MEDONC ---
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 HISTORY OF PRESENT ILLNESS: Mr. Caba is a very pleasant gentleman who presented with swallowing problems. When he swallows food, it appears to stick at the level of the lower end of the sternum inside. A few weeks ago, the patient had an EGD. 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 PAST MEDICAL HISTORY: He has chronic kidney disease. He has diabetes mellitus, diet controlled. Last A1c was 6. He has chronic obstructive pulmonary disease (COPD). Sometimes he is short of breath. He has a history of chest pain off and on, but he is doing good right now. He had two bilateral knee replacement surgeries. He also had left shoulder replacement surgery. Spinal stenosis, sometimes it is painful and is taking tramadol to relieve the pain. He has sleep apnea problems and was using CPAP. He also has gout, on allopurinol. FAMILY HISTORY: Father of gallbladder cancer. He has chronic kidney disease and is followed up by nuclear medical technologist. PHYSICAL EXAMINATION: Weight 143.2 kg, temperature 96.7, pulse 63, respiratory rate 24, blood pressure 145/75, oxygen saturation 95% in room air. The patient is a well developed obese male in no acute distress. HEENT: Head normocephalic, atraumatic. Eyes pupils equal, round and reactive to light and accommodation, extraocular muscles intact. Hearing is okay. Throat and mouth cavities clear. NECK: Supple. Jugular venous distention (JVD) negative. Trachea midline. No thyromegaly. LYMPH: No lymphadenopathy in the neck, supraclavicular and axillary areas. CHEST: Bilateral gynecomastia present. His breasts are pendulous and thick. LUNGS: There are a few crackles. No rales, no rhonchi. CARDIOVASCULAR: S1 and S2 heard. No murmur. No gallop. Regular rate and rhythm. ABDOMEN: Obese. No organomegaly. No masses. No guarding. No tenderness. EXTREMITIES: Show lower extremity is slightly swollen and red. LABORATORY DATA: WBC 10, hemoglobin 13.7, platelets 337. Chemistries: Na 141, K 4.5, BUN 22, creatinine 1.1. IMPRESSION/PLAN: Mr. Caba is a 73-year-old white male who presented with swallowing problems, his food stuck at the lower end of the sternum. The patient underwent an EGD and was found to have a tumor mass at the GE junction. The tumor appears to be big. The patient is referred to [facility] in [facility] for further evaluation and management. The patient is discussed about the treatment of his esophageal cancer. If the cancer is early stage they can resect it, but his cancer appeared to be much more advanced. He will probably need concurrent chemoradiotherapy first to shrink the tumor and then may consider surgery. If [facility] recommends concurrent chemoradiotherapy he can come back here and have chemotherapy that is recommended. After he completes the chemotherapy he will go back to [facility] and will be reevaluated to see whether his cancer can be resected. Electronically Signed by Mame Fritz MD 05/13/2019 03:29 P DD: Mame Fritz MD 05/05/2019 01:56 P DT: [email or web address] 05/08/2019 10:41 A CC:
[2019-05-12 12:50] VITALS: BP 128/72
--- NOTE | 2019-05-18 11:34 | MEDONC ---
HEMATOLOGY/ONCOLOGY FOLLOWUP NOTE DATE OF SERVICE: 05/12/2019 REASON FOR FOLLOWUP: The patient was evaluated 1 week ago for complication and difficulties, please see the previous note from 05/05/2019. The patient had staging workup with PET/CT scan on 05/09/2019. HISTORY OF PRESENT ILLNESS: Mr. Caba is a 73-year-old white male who presented with swallowing problems. He complained of food stuck in the esophagus at the level of the sternum. The patient underwent EGD and was found to have a tumor mass at the GE junction. Since the tumor appears to be big, the patient was referred to [facility] in [facility] for further evaluation and management. The patient was discussed about the treatment of his esophageal cancer. If the cancer is small that surgery is possible, but his cancer appears to be advanced and he will probably need concurrent chemo/radiotherapy, first to shrink the tumor and then may consider surgery. If [facility] recommends concurrent chemotherapy prior to surgery, he can come back here and have chemo radiotherapy that is recommended. After he completes chemo radiotherapy, he will go back to [facility] and be reevaluated to see whether his cancer can be resected. PET/CT findings: The patient's esophageal mass is markedly hypermetabolic, SUV value is 29.95. This measures approximately 5 cm in greatest traverse dimension and is somewhat elongate. There is no other abnormal hypermetabolic uptake in the chest, abdomen, pelvis or head/neck region. No abnormal martita uptake is seen. No hepatic abnormality is seen. There is no visible upper abdominal hypermetabolic adenopathy. No pulmonary, parenchymal hypermetabolic uptake is seen. IMPRESSION: 1. The patient's malignant distal esophageal mass is large and markedly hypermetabolic. No other abnormal hypermetabolic uptake is seen. The patient and his partner are discussed the PET/CT scan findings. The cancer is located only at the GE junction. Surgery may be possible after concurrent chemo radiotherapy can downsize the cancer. The patient said that they have an appointment to be seen on this coming Wednesday on 05/15/2019. We will see him back after evaluation by [facility] in [facility]. Electronically Signed by Mame Fritz MD 05/19/2019 07:38 P DD: Mame Fritz MD 05/12/2019 03:45 P DT: [email or web address] 05/18/2019 11:14 A CC:
[2019-05-19 08:03] VITALS: BP 157/85
[2019-05-19 09:52] LABS: INR 1.06; PROTHROMBIN TIME 13.5 SECONDS (11.8-14.0)
[2019-05-19 09:53] LABS: PARTIAL THROMBOPLASTIN TIME 31.1 SECONDS (25.0-38.4)
--- NOTE | 2019-05-21 19:59 | MEDONC ---
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 HISTORY OF PRESENT ILLNESS: Mr. Caba is a very pleasant gentleman who presented with swallowing problems. When he swallows food, it appears that the food is stuck at the level of the lower end of the sternum. Further workup with esophagogastroduodenoscopy (EGD) showed the patient had a mass at the GE junction. 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 PAST MEDICAL HISTORY: 1. Chronic kidney disease. 2. Type 2 diabetes mellitus, diet controlled. 3. Chronic obstructive pulmonary disease (COPD). 4. Chest pain off and on but recently he has no more chest pain. 5. Bilateral total knee replacement surgeries. 6. Left shoulder replacement surgery. 7. Spinal stenosis, sometimes it is painful and he is taking tramadol to relieve the pain. 8. Sleep apnea problems and using CPAP. 9. Gout. He is taking allopurinol and has had no gout attacks recently. FAMILY HISTORY: Father of gallbladder cancer. PHYSICAL EXAMINATION: Weight 142 kg, temperature 97.8, pulse 69, respiratory rate 18, blood pressure 157/85, oxygen saturation 94% in room air. The patient is a well developed obese male in no acute distress. HEENT: Head normocephalic, atraumatic. Eyes pupils equal, round and reactive to light and accommodation, extraocular muscles intact. Hearing is okay. Throat and mouth cavities clear. NECK: Supple. Jugular venous distention (JVD) negative. Trachea midline. No thyromegaly. LYMPHATICS: No lymphadenopathy in the neck, supraclavicular and axillary areas. CHEST: Bilateral gynecomastia present. His breasts are pendulous and thick. LUNGS: There are a few basilar crackles. No rales, no rhonchi. CARDIOVASCULAR: S1 and S2 heard. No murmur. No gallop. Regular rate and rhythm. ABDOMEN: Obese. No organomegaly. No masses. No guarding. No tenderness. EXTREMITIES: Show lower extremities are slightly swollen and red. 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 The patient and his went to [facility] in [facility] for second opinion and further management of his cancer. [facility] recommended to have neoadjuvant chemo radiation to downsize the cancer and after that he would be reevaluated to see whether the cancer is resectable or not. It was also recommended that he can get chemo radiation at our cancer center. PLAN: 1. He will need an infusion port. We will send a consultation to interventional radiology. 2. Radiation oncology consultation to start on concurrent chemo radiation. 3. We will consider to use Taxol and carboplatin during concurrent chemo radiation. We will use Taxol 50 mg per meter squared weekly during radiation for 5 weeks and carboplatin at a dose of AUC2 together with Taxol during radiation once a week. 4. The patient is advised to get a feeding tube. The feeding tube will be placed at the jejunum so that during surgery the stomach can be mobilized after resection of the cancer and pull up to anastomose with the esophagus. The patient and his verbalized understanding and will undergo the treatment plan outlined. Electronically Signed by Mame Fritz MD 05/22/2019 08:00 A DD: Mame Fritz MD 05/19/2019 12:35 P DT: luis 05/21/2019 07:48 P CC:
[2019-06-08 15:28] VITALS: BP 153/83
[2019-06-08 16:30] LABS: BASO # 0.1 10^3/uL (0.0-0.2); BASO % 0.7 % (0.0-1.0); EOS # 0.4 10^3/uL (0.0-0.5); HEMATOCRIT 37.6 % (42.0-52.0); HEMOGLOBIN 11.6 g/dl (13.5-17.5); LYMPH # 1.9 10^3/uL (1.5-5.0); LYMPH % 19.2 % (24.0-44.0); MEAN CORPUSCULAR HEMOGLOBIN 29.7 pg (27.0-33.0); MEAN CORPUSCULAR HGB CONC 30.9 g/dl (32.0-36.5); MEAN CORPUSCULAR VOLUME 96.2 fl (80.0-96.0); MONO # 0.7 10^3/uL (0.0-0.8); NEUTROPHILS # 6.9 10^3/uL (1.5-8.5); NEUTROPHILS % 68.2 % (36.0-66.0); PLATELET COUNT, AUTOMATED 365 10^3/uL (150-450); RED BLOOD COUNT 3.91 10^6/uL (4.30-6.10); WHITE BLOOD COUNT 10.1 10^3/uL (4.0-10.0)
[2019-06-08 16:58] LABS: ALBUMIN 3.4 GM/DL (3.2-5.2); ALT/SGPT 17 U/L (12-78); BILIRUBIN,TOTAL 0.2 MG/DL (0.2-1.0); BLOOD UREA NITROGEN 22 MG/DL (7-18); CALCIUM LEVEL 8.8 MG/DL (8.8-10.2); CARBON DIOXIDE LEVEL 28 MEQ/L (21-32); CHLORIDE LEVEL 107 MEQ/L (98-107); CREATININE FOR GFR 1.07 MG/DL (0.70-1.30); FERRITIN 30 NG/ML (26-388); GLOMERULAR FILTRATION RATE > 60.0 (>42); GLUCOSE, FASTING 120 MG/DL (70-100); IRON (FE) 29 UG/DL (65-175); PERCENT SATURATION 7.4 % (19.7-50.0); POTASSIUM SERUM 3.8 MEQ/L (3.5-5.1); SODIUM LEVEL 141 MEQ/L (136-145); TOTAL IRON BINDING CAPACITY 393 UG/DL (250-450); TOTAL PROTEIN 6.7 GM/DL (6.4-8.2)
--- NOTE | 2019-06-10 07:44 | MEDONC ---
DATE OF SERVICE: 06/08/2019 REASON FOR FOLLOWUP: Esophageal cancer. DIAGNOSIS AND TREATMENT HISTORY: Per prior notes and patient's history. TxN0M0, grade III, HER2/monica 1+, negative. - 03/12/2019 began to develop dysphagia to solids more than liquids. - 04/28/2019 EGD - large ulceration, no bleeding, and no stigmata of recent bleeding, distal esophageal mass near GEJ from 31 cm to 38 cm from incisors, partially obstructing and partially circumferential - BX c/w high grade adenocarcinoma. - 05/09/2019 PET - esophageal mass SUV 29.95, 5 cm in the greatest dimension, no evidence of mets. - Saw surgical oncology [facility] - was recommended concurrent chemotherapy radiation followed by possible surgery. Baseline CEA 06/08/19 27.4. INTERVAL HISTORY: I met the patient for the first time today. He is here in followup having completed the consultation with [facility], was advised to commence concurrent chemoradiation. His main symptoms currently include difficulty swallowing the solids more than liquids, but he is able to manage by cutting up his food into small pieces. He denies any pain on swallowing. He denies any black tarry or maroon stools. No vomiting of blood. He otherwise has a good appetite and sleep. He has not noticed any significant weight loss per the patient. No pain or obvious bleeding at any site. Denies any other complaints. REVIEW OF SYSTEMS: Constitutional: No fevers, no chills, no night sweats, no fatigue, no malaise, no weight loss. Cardiopulmonary: No chest pain, no SOB, no palpitations, no dizziness. No cough. No hemoptysis. Gastrointestinal: No pain, no nausea, no vomiting, no constipation, no diarrhea. No hematemesis, no melena, no hematochezia. Genitourinary: No dysuria, no hematuria, no incontinence, no frequency, no urgency. Musculoskeletal: No bony, no muscle, no joint aches. AIRPORT OPERATIONS SUPERVISOR: No tingling, no weakness, no numbness, no headaches, no dizziness, no seizures, no speech, no visual disturbances, All other systems, are negative unless otherwise specified in HPI. PAST MEDICAL HISTORY: Arthritis. Emphysema. COPD. Type 2 diabetes. CKD. B/LT total knee replacement. Left shoulder replacement. Spinal stenosis. TUSHAR - uses CPAP. Gout. Cataracts. Bilateral carpal tunnel surgery. Inguinal hernia repair. MEDICATIONS: Reviewed reconciled in EMR. ALLERGIES: 1. FLUTICASONE. 2. THIOPENTAL. VITAL SIGNS: Reviewed in EMR - stable. PHYSICAL EXAM: HEENT: Oral mucosa - pink and moist, no conjunctival pallor, sclera anicteric bilaterally. LYMPHATICS: No cervical, supraclavicular, axillary or inguinal LAD. LUNGS: Clear to auscultation bilaterally, resonant to percussion bilaterally. HEART: Regular rhythm, no murmurs, no S3/S4, no rubs. ABDOMEN: Soft, nontender, bowel sounds normoactive, no hepatosplenomegaly. EXTREMITIES: No edema bilaterally. Calves, nontender bilaterally. SKIN/NAILS: No nail changes. No petechiae/ecchymosis or other skin changes. MUSCULOSKELETAL: Spine nontender to palpation. INVESTIGATIONS: Reviewed in the EMR. ASSESSMENT/PLAN: 1. Esophageal cancer with no evidence of intrathoracic or distant mets per PET CT. EUS report requested though he's not sure he had it done. He saw surgical oncology Dr. Jeannie Calvo at [facility] and was recommended based on imaging, that neoadjuvant chemotherapy be started followed by an evaluation for resection. He has met with radiation oncology, Dr. Stein. Simulation has been completed and he is awaiting a start date from radiation. I discussed with him risks and benefits and management of common and serious side effects to carboplatin and Taxol given concurrently with radiation per the CROSS data. Update CBC, CMP, CEA. Check iron studies despite lack of significant anemia - discussed with patient we will plan to replenish iron stores. Risks and benefits of Injectafer discussed - 750 mg IV x2 doses one week apart. With mild macrocytosis, also check B12 and folate for starters. FOLLOWUP: Will coordinate with radiation oncology to commence chemoradiation likely next week, see me two weeks after starting chemotherapy for reassessment and toxicity check. All of the above was relayed to the patient who was given an opportunity to ask questions that were answered to satisfaction. he patient voiced an understanding and agreed to proceed. Electronically Signed by Peter De La Cruz MD 06/11/2019 05:21 P DD: Peter De La Cruz MD 06/09/2019 01:23 P DT: julia 06/10/2019 07:02 A CC:
[2019-06-13 11:06] VITALS: BP 145/66
[2019-06-13 11:18] LABS: BASO # 0.1 10^3/uL (0.0-0.2); BASO % 0.7 % (0.0-1.0); EOS # 0.3 10^3/uL (0.0-0.5); EOS % 3.4 % (0.0-3.0); HEMOGLOBIN 11.5 g/dl (13.5-17.5); LYMPH # 1.8 10^3/uL (1.5-5.0); LYMPH % 19.7 % (24.0-44.0); MEAN CORPUSCULAR HEMOGLOBIN 30.3 pg (27.0-33.0); MEAN CORPUSCULAR HGB CONC 31.9 g/dl (32.0-36.5); MEAN CORPUSCULAR VOLUME 94.7 fl (80.0-96.0); MONO # 0.6 10^3/uL (0.0-0.8); MONO % 7.1 % (0.0-5.0); NEUTROPHILS # 6.2 10^3/uL (1.5-8.5); NEUTROPHILS % 68.5 % (36.0-66.0); PLATELET COUNT, AUTOMATED 344 10^3/uL (150-450); WHITE BLOOD COUNT 9.1 10^3/uL (4.0-10.0)
--- NOTE | 2019-06-13 14:13 | ONC.PHACK ---
CHEMO ADMIN CHECKLIST Order Contains Pt ID: Name, Order on Chemo Order Form?: Yes Order Form Includes ALL: Correct Tx Day, Correct Date, Correct Cycle Number Pt ID on Order form Matches: Pt ID on PHA Label Med on Chemo OrderForm Matches: PHA Label, Med Used for Preparation [facility] Jun 13, 2019 14:13
[2019-06-13 16:26] LABS: FOLATE 20.6 NG/ML (>5.4)
[2019-06-16 10:15] VITALS: BP 134/70
[2019-06-16 12:15] VITALS: BP 137/68
[2019-06-21 10:12] LABS: BASO % 0.7 % (0.0-1.0); EOS # 0.2 10^3/uL (0.0-0.5); EOS % 3.4 % (0.0-3.0); HEMATOCRIT 36.4 % (42.0-52.0); HEMOGLOBIN 11.4 g/dl (13.5-17.5); LYMPH # 0.6 10^3/uL (1.5-5.0); LYMPH % 11.4 % (24.0-44.0); MEAN CORPUSCULAR HEMOGLOBIN 29.5 pg (27.0-33.0); MEAN CORPUSCULAR HGB CONC 31.3 g/dl (32.0-36.5); MEAN CORPUSCULAR VOLUME 94.3 fl (80.0-96.0); MONO # 0.5 10^3/uL (0.0-0.8); MONO % 8.8 % (0.0-5.0); NEUTROPHILS # 4.1 10^3/uL (1.5-8.5); NEUTROPHILS % 73.7 % (36.0-66.0); PLATELET COUNT, AUTOMATED 304 10^3/uL (150-450); RED BLOOD COUNT 3.86 10^6/uL (4.30-6.10); WHITE BLOOD COUNT 5.6 10^3/uL (4.0-10.0)
[2019-06-21 10:37] LABS: ALBUMIN 3.3 GM/DL (3.2-5.2); ALT/SGPT 13 U/L (12-78); BILIRUBIN,TOTAL 0.4 MG/DL (0.2-1.0); BLOOD UREA NITROGEN 20 MG/DL (7-18); CALCIUM LEVEL 8.9 MG/DL (8.8-10.2); CARBON DIOXIDE LEVEL 27 MEQ/L (21-32); CHLORIDE LEVEL 108 MEQ/L (98-107); CREATININE FOR GFR 0.89 MG/DL (0.70-1.30); GLOMERULAR FILTRATION RATE > 60.0 (>42); GLUCOSE, FASTING 89 MG/DL (70-100); POTASSIUM SERUM 3.9 MEQ/L (3.5-5.1); SODIUM LEVEL 140 MEQ/L (136-145); TOTAL PROTEIN 6.8 GM/DL (6.4-8.2)
[2019-06-21 10:40] LABS: PERCENT SATURATION 25.1 % (19.7-50.0)
[2019-06-21 11:10] VITALS: BP 140/80
--- NOTE | 2019-06-21 13:38 | ONC.PHACK ---
CHEMO ADMIN CHECKLIST Order Contains Pt ID: Name, Order on Chemo Order Form?: Yes Order Form Includes ALL: Correct Tx Day, Correct Date, Correct Cycle Number Pt ID on Order form Matches: Pt ID on PHA Label Med on Chemo OrderForm Matches: PHA Label, Med Used for Preparation [facility] Jun 21, 2019 13:38
--- NOTE | 2019-06-22 14:54 | MEDONC ---
DATE OF SERVICE: 06/21/2019 REASON FOR FOLLOWUP: Esophageal cancer. DIAGNOSIS AND TREATMENT HISTORY: Per prior notes and patient's history. TxN0M0, grade III, esophageal adenocarcinoma, HER2/monica 1+, negative. - 02/2019 began to develop dysphagia to solids more than liquids. - 04/28/2019 EGD - large ulceration, no bleeding, and no stigmata of recent bleeding, distal esophageal mass near GEJ from 31 cm to 38 cm from incisors, partially obstructing and partially circumferential - BX c/w high grade adenocarcinoma. - 05/09/2019 PET - esophageal mass SUV 29.95, 5 cm in the greatest dimension, no evidence of mets. - [place] [facility] [place] recommended concurrent chemotherapy radiation followed by possible surgery. Baseline CEA 06/08/19 7.4. - 06/13/2019 commenced concurrent chemoradiation with carboplatin/Taxol. INTERVAL HISTORY: Here in f/u. Tolerating his chemoradiation well today without any issues. Continues to have difficulty swallowing solids more than liquids but is able to manage by cutting up his food into small pieces. He denies any pain on swallowing. He denies any history of GI bleeding. Otherwise has a good appetite and sleep. Has not noticed any weight loss. No other sites or bleeding or pain. Denies any other complaints. REVIEW OF SYSTEMS: Constitutional: No fevers, no chills, no night sweats, no fatigue, no malaise, no weight loss. Cardiopulmonary: No chest pain, no SOB, no palpitations, no dizziness. No cough. No hemoptysis. Gastrointestinal: No pain, no nausea, no vomiting, no constipation, no diarrhea. No hematemesis, no melena, no hematochezia. Genitourinary: No dysuria, no hematuria, no incontinence, no frequency, no urgency. Musculoskeletal: No bony, no muscle, no joint aches. 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 PAST MEDICAL HISTORY: Arthritis. Emphysema. COPD. Type 2 diabetes. CKD. B/LT total knee replacement. Left shoulder replacement. Spinal stenosis. TUSHAR - uses CPAP. Gout. Cataracts. Bilateral carpal tunnel surgery. Inguinal hernia repair. MEDICATIONS: Reviewed reconciled in EMR. ALLERGIES: 1. FLUTICASONE. 2. THIOPENTAL. VITAL SIGNS: Reviewed in EMR - stable. PHYSICAL EXAM: HEENT: Oral mucosa - pink and moist, no conjunctival pallor, sclera anicteric bilaterally. LYMPHATICS: Prior exam- No cervical, supraclavicular, axillary or inguinal LAD. LUNGS: Clear to auscultation bilaterally, resonant to percussion bilaterally. HEART: Regular rhythm, no murmurs, no S3/S4, no rubs. ABDOMEN: Soft, nontender, bowel sounds normoactive, no hepatosplenomegaly. EXTREMITIES: No edema bilaterally. Calves, nontender bilaterally. SKIN/NAILS: No nail changes. No petechiae/ecchymosis or other skin changes. MUSCULOSKELETAL: Spine nontender to palpation. INVESTIGATIONS: Reviewed in the EMR. ASSESSMENT/PLAN: 1. Esophageal cancer with no evidence of intrathoracic or distant mets per PET CT. As of 06/21/2018 commenced carboplatin/Taxol with concurrent radiation. Tolerating his regimen well. CBC today mild stable anemia 11.4. No other cytopenias. CMP unremarkable. No prohibitive effects to proceed with week #2 of chemoradiation today. Proceed with week #2. 2. Iron deficiency with ferritin on 06/08/2019 inappropriate normal at 13 in the setting of diagnosed malignancy. Commenced IV Injectafer 06/16/2018 - tolerated well. Next dose due 06/23/2019. Update iron indices 5-6 weeks after last dose. FOLLOWUP: Weekly chemotherapy, see me in 2 weeks for clinical assessment, sooner p.r.n. All of the above was relayed to the patient who was given an opportunity to ask questions that were answered to satisfaction. he patient voiced an understanding and agreed to proceed. Electronically Signed by Peter De La Cruz MD 06/22/2019 06:53 P DD: Peter De La Cruz MD 06/21/2019 07:42 P DT: [email or web address] 06/22/2019 02:16 P CC: MICHAEL Sanders
[2019-06-23 10:16] VITALS: BP 113/58
[2019-06-29 10:42] VITALS: BP 130/61
[2019-06-29 10:55] LABS: BASO % 1.1 % (0.0-1.0); EOS # 0.1 10^3/uL (0.0-0.5); EOS % 2.8 % (0.0-3.0); HEMATOCRIT 35.9 % (42.0-52.0); HEMOGLOBIN 11.2 g/dl (13.5-17.5); LYMPH # 0.3 10^3/uL (1.5-5.0); LYMPH % 7.7 % (24.0-44.0); MEAN CORPUSCULAR HEMOGLOBIN 29.9 pg (27.0-33.0); MEAN CORPUSCULAR HGB CONC 31.2 g/dl (32.0-36.5); MEAN CORPUSCULAR VOLUME 95.7 fl (80.0-96.0); MONO # 0.5 10^3/uL (0.0-0.8); MONO % 13.1 % (0.0-5.0); NEUTROPHILS # 2.6 10^3/uL (1.5-8.5); NEUTROPHILS % 72.5 % (36.0-66.0); PLATELET COUNT, AUTOMATED 250 10^3/uL (150-450); RED BLOOD COUNT 3.75 10^6/uL (4.30-6.10); WHITE BLOOD COUNT 3.5 10^3/uL (4.0-10.0)
--- NOTE | 2019-06-29 11:18 | ONC.PHACK ---
CHEMO ADMIN CHECKLIST Order Contains Pt ID: Name, Order on Chemo Order Form?: Yes Order Form Includes ALL: Correct Tx Day, Correct Date, Correct Cycle Number Pt ID on Order form Matches: Pt ID on PHA Label Med on Chemo OrderForm Matches: PHA Label, Med Used for Preparation [facility] Jun 29, 2019 11:18
[2019-07-05 11:03] LABS: BASO % 1.2 % (0.0-1.0); EOS # 0.1 10^3/uL (0.0-0.5); EOS % 1.8 % (0.0-3.0); HEMATOCRIT 34.1 % (42.0-52.0); HEMOGLOBIN 10.9 g/dl (13.5-17.5); LYMPH # 0.2 10^3/uL (1.5-5.0); LYMPH % 5.1 % (24.0-44.0); MEAN CORPUSCULAR HEMOGLOBIN 30.3 pg (27.0-33.0); MEAN CORPUSCULAR VOLUME 94.7 fl (80.0-96.0); MONO # 0.4 10^3/uL (0.0-0.8); MONO % 10.4 % (0.0-5.0); NEUTROPHILS # 2.7 10^3/uL (1.5-8.5); NEUTROPHILS % 79.7 % (36.0-66.0); PLATELET COUNT, AUTOMATED 218 10^3/uL (150-450); WHITE BLOOD COUNT 3.4 10^3/uL (4.0-10.0)
[2019-07-05 11:22] LABS: BLOOD UREA NITROGEN 19 MG/DL (7-18); CALCIUM LEVEL 8.8 MG/DL (8.8-10.2); CARBON DIOXIDE LEVEL 27 MEQ/L (21-32); CHLORIDE LEVEL 108 MEQ/L (98-107); CREATININE FOR GFR 0.75 MG/DL (0.70-1.30); GLOMERULAR FILTRATION RATE > 60.0 (>42); GLUCOSE, FASTING 93 MG/DL (70-100); POTASSIUM SERUM 4.2 MEQ/L (3.5-5.1); SODIUM LEVEL 141 MEQ/L (136-145)
[2019-07-05 11:24] VITALS: BP 138/78
--- NOTE | 2019-07-05 12:21 | ONC.PHACK ---
CHEMO ADMIN CHECKLIST Order Contains Pt ID: Name, Order on Chemo Order Form?: Yes Order Form Includes ALL: Correct Tx Day, Correct Date, Correct Cycle Number Pt ID on Order form Matches: Pt ID on PHA Label Med on Chemo OrderForm Matches: PHA Label, Med Used for Preparation [facility] Jul 05, 2019 12:21
[2019-07-11 09:56] LABS: BASO # 0.1 10^3/uL (0.0-0.2); BASO % 1.4 % (0.0-1.0); EOS # 0.1 10^3/uL (0.0-0.5); EOS % 1.7 % (0.0-3.0); HEMATOCRIT 34.5 % (42.0-52.0); HEMOGLOBIN 11.2 g/dl (13.5-17.5); LYMPH % 3.4 % (24.0-44.0); MEAN CORPUSCULAR HEMOGLOBIN 30.4 pg (27.0-33.0); MEAN CORPUSCULAR HGB CONC 32.5 g/dl (32.0-36.5); MEAN CORPUSCULAR VOLUME 93.8 fl (80.0-96.0); MONO # 0.3 10^3/uL (0.0-0.8); MONO % 7.3 % (0.0-5.0); NEUTROPHILS % 84.8 % (36.0-66.0); PLATELET COUNT, AUTOMATED 176 10^3/uL (150-450); RED BLOOD COUNT 3.68 10^6/uL (4.30-6.10); WHITE BLOOD COUNT 3.6 10^3/uL (4.0-10.0)
[2019-07-11 09:59] LABS: LYMPH # 0.1 10^3/uL (1.5-5.0)
[2019-07-11 10:34] VITALS: BP 120/72
--- NOTE | 2019-07-11 13:34 | ONC.PHACK ---
CHEMO ADMIN CHECKLIST Order Contains Pt ID: Name, Order on Chemo Order Form?: Yes Order Form Includes ALL: Correct Tx Day, Correct Date, Correct Cycle Number Pt ID on Order form Matches: Pt ID on PHA Label Med on Chemo OrderForm Matches: PHA Label, Med Used for Preparation [facility] Jul 11, 2019 13:34
[2019-07-18 08:09] VITALS: BP 129/79
[2019-07-18 08:23] LABS: BASO % 1.6 % (0.0-1.0); EOS % 1.6 % (0.0-3.0); HEMATOCRIT 30.8 % (42.0-52.0); HEMOGLOBIN 10.2 g/dl (13.5-17.5); LYMPH % 4.7 % (24.0-44.0); MEAN CORPUSCULAR HEMOGLOBIN 30.8 pg (27.0-33.0); MEAN CORPUSCULAR HGB CONC 33.1 g/dl (32.0-36.5); MEAN CORPUSCULAR VOLUME 93.1 fl (80.0-96.0); MONO # 0.3 10^3/uL (0.0-0.8); NEUTROPHILS # 1.4 10^3/uL (1.5-8.5); PLATELET COUNT, AUTOMATED 182 10^3/uL (150-450); RED BLOOD COUNT 3.31 10^6/uL (4.30-6.10)
[2019-07-18 08:32] LABS: LYMPH # 0.1 10^3/uL (1.5-5.0); WHITE BLOOD COUNT 1.9 10^3/uL (4.0-10.0)
[2019-07-18 08:53] LABS: ALT/SGPT 20 U/L (12-78); BILIRUBIN,TOTAL 0.4 MG/DL (0.2-1.0); BLOOD UREA NITROGEN 21 MG/DL (7-18); CALCIUM LEVEL 8.7 MG/DL (8.8-10.2); CARBON DIOXIDE LEVEL 28 MEQ/L (21-32); CHLORIDE LEVEL 108 MEQ/L (98-107); CREATININE FOR GFR 0.87 MG/DL (0.70-1.30); GLOMERULAR FILTRATION RATE > 60.0 (>42); GLUCOSE, FASTING 105 MG/DL (70-100); POTASSIUM SERUM 3.9 MEQ/L (3.5-5.1); SODIUM LEVEL 140 MEQ/L (136-145); TOTAL PROTEIN 6.3 GM/DL (6.4-8.2)
--- NOTE | 2019-07-18 09:44 | ONC.PHACK ---
CHEMO ADMIN CHECKLIST Order Contains Pt ID: Name, Order on Chemo Order Form?: Yes Order Form Includes ALL: Correct Tx Day, Correct Date, Correct Cycle Number Pt ID on Order form Matches: Pt ID on PHA Label Med on Chemo OrderForm Matches: PHA Label, Med Used for Preparation [facility] Jul 18, 2019 09:44
--- NOTE | 2019-07-19 14:21 | MEDONC ---
DATE OF SERVICE: 07/18/2019 REASON FOR FOLLOWUP: Esophageal cancer. DIAGNOSIS AND TREATMENT HISTORY: Per prior notes and patient's history. TxN0M0, grade III, HER2/monica 1+, negative. - 03/12/2019 began to develop dysphagia to solids more than liquids. - 04/28/2019 EGD - large ulceration, no bleeding, and no stigmata of recent bleeding, distal esophageal mass near GEJ from 31 cm to 38 cm from incisors, partially obstructing and partially circumferential - BX c/w high grade adenocarcinoma. - 05/09/2019 PET - esophageal mass SUV 29.95, 5 cm in the greatest dimension, no evidence of mets. - Saw surgical oncology [facility] [place] - was recommended concurrent chemotherapy radiation followed by possible surgery. Baseline CEA 06/08/19 27.4. - 06/13/2019 commenced carboplatin/Taxol with concurrent radiation. INTERVAL HISTORY: The patient returns in followup today. Since his last visit, he has a mild rare occasional cough, clear, mucoid. Denies any green or yellow sputum production. Denies any fevers or chills. No sinus pain or pressure. Early last week he had two to three episodes of diarrhea for one day, took three tablets of Imodium with no further issues. Has mild stable difficulty with solid foods more than liquids, but is able to manage without issue by cutting up his food in small pieces. Denies any pain on swallowing. Otherwise has a good appetite and sleep, without any reportable weight loss. Reports mild decrease in appetite last week, but was still able to eat three square meals a day. States that he has mild burning with bigger pills -- his states that he usually takes a handful of them at a time in about two batches. She has been advising him to go slow and try them one or two at a time. Otherwise, he denies any further increase in his difficulty with swallowing. He continues on proton pump inhibitor and Carafate. States that he has an easier time when he uses pudding with his pills. Denies any other complaints. REVIEW OF SYSTEMS: Constitutional: No fevers, no chills, no night sweats, no fatigue, no malaise, no weight loss. Cardiopulmonary: No chest pain, no SOB, no palpitations, no dizziness. No cough. No hemoptysis. Gastrointestinal: No pain, no nausea, no vomiting, no constipation, no diarrhea. No hematemesis, no melena, no hematochezia. Genitourinary: No dysuria, no hematuria, no incontinence, no frequency, no urgency. Musculoskeletal: No bony, no muscle, no joint aches. 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 PAST MEDICAL HISTORY: Arthritis. Emphysema. COPD. Type 2 diabetes. CKD. B/LT total knee replacement. Left shoulder replacement. Spinal stenosis. TUSHAR - uses CPAP. Gout. Cataracts. Bilateral carpal tunnel surgery. Inguinal hernia repair. MEDICATIONS: Reviewed reconciled in EMR. ALLERGIES: 1. FLUTICASONE. 2. THIOPENTAL. VITAL SIGNS: Reviewed in EMR - stable. PHYSICAL EXAM: HEENT: Oral mucosa - pink and moist, no conjunctival pallor, sclera anicteric bilaterally. LYMPHATICS: Prior exam, no cervical, supraclavicular, axillary or inguinal LAD. LUNGS: Clear to auscultation bilaterally, resonant to percussion bilaterally. HEART: Regular rhythm, no murmurs, no S3/S4, no rubs. ABDOMEN: Soft, nontender, bowel sounds normoactive, no hepatosplenomegaly. EXTREMITIES: Trace bilateral symmetric pitting edema. Calves, nontender bilaterally. SKIN/NAILS: No nail changes. No petechiae/ecchymosis or other skin changes. MUSCULOSKELETAL: Spine nontender to palpation. INVESTIGATIONS: Reviewed in the EMR. ASSESSMENT/PLAN: 1. Esophageal cancer with no evidence of intrathoracic or distant mets per PET CT. The patient is tolerating his regimen well. He denies any recurrent diarrhea that he had about 2 weeks ago. CBC today -- WBC 1.9, neutrophils 1.4. XRT end date changed to today. We will continue with chemotherapy today and monitor counts closely. Update CMP. Plan for PET CT by 07/31 or 08/02/2019, has a followup with Dr. Jeannie Lowe at [facility] [place] on 08/07/2019. Advised to followup with GI for post treatment EGD evaluation. 2. Iron deficiency with ferritin on 06/08/2019 inappropriately normal at 13 in the setting of diagnosed malignancy. S/P Injectafer x2 doses, ended 06/23/2019. Will update iron indices 5-6 weeks after last dose. 3. Leukopenia without neutropenia. Monitor counts closely, non prohibitive for chemotherapy and radiation today. FOLLOWUP: CBC recheck in 7 to 10 days. followup 08/11/2019 with updated PET scan, post GI evaluation and [facility] [place] surgical oncology evaluation and updated iron studies. All of the above was relayed to the patient who was given an opportunity to ask questions that were answered to satisfaction. he patient voiced an understanding and agreed to proceed. Electronically Signed by Peter De La Cruz MD 07/19/2019 11:13 P DD: Peter De La Cruz MD 07/18/2019 06:06 P DT: [email or web address] 07/19/2019 01:35 P CC: MD Jeannie Grant MD Frederick Tontarski, PA
--- NOTE | 2019-07-20 15:45 | MEDONC ---
DATE OF SERVICE: 07/05/2019 REASON FOR FOLLOWUP: Esophageal cancer. DIAGNOSIS AND TREATMENT HISTORY: Per prior notes and patient's history. TxN0M0, grade III, HER2/monica 1+, negative. - 03/12/2019 began to develop dysphagia to solids more than liquids. - 04/28/2019 EGD - large ulceration, no bleeding, and no stigmata of recent bleeding, distal esophageal mass near GEJ from 31 cm to 38 cm from incisors, partially obstructing and partially circumferential - BX c/w high grade adenocarcinoma. - 05/09/2019 PET - esophageal mass SUV 29.95, 5 cm in the greatest dimension, no evidence of mets. - [place] [facility] [place] recommended concurrent chemotherapy radiation followed by possible surgery. Baseline CEA 06/08/19 27.4. - 06/13/2019 commenced carboplatin/Taxol with concurrent radiation. INTERVAL HISTORY: The patient returns in followup today. Since his last visit, he has a mild rare occasional cough, clear, mucoid. Denies any green or yellow sputum production. Denies any fevers or chills. No sinus pain or pressure. Early last week he had two to three episodes of diarrhea for one day, took three tablets of Imodium with no further issues. Has mild stable difficulty with solid foods more than liquids, but is able to manage without issue by cutting up his food in small pieces. Denies any pain on swallowing. Otherwise has a good appetite and sleep, without any reportable weight loss. Denies any other complaints. REVIEW OF SYSTEMS: Constitutional: No fevers, no chills, no night sweats, no fatigue, no malaise, no weight loss. Cardiopulmonary: No chest pain, no SOB, no palpitations, no dizziness. No cough. No hemoptysis. Gastrointestinal: No pain, no nausea, no vomiting, no constipation, no diarrhea. No hematemesis, no melena, no hematochezia. Genitourinary: No dysuria, no hematuria, no incontinence, no frequency, no urgency. Musculoskeletal: No bony, no muscle, no joint aches. CHAPLAIN RESIDENT: No tingling, no weakness, no numbness, no headaches, no dizziness, no seizures, no speech, no visual disturbances, All other systems, are negative unless otherwise specified in HPI. PAST MEDICAL HISTORY: Arthritis. Emphysema. COPD. Type 2 diabetes. CKD. B/LT total knee replacement. Left shoulder replacement. Spinal stenosis. TUSHAR - uses CPAP. Gout. Cataracts. Bilateral carpal tunnel surgery. Inguinal hernia repair. MEDICATIONS: Reviewed reconciled in EMR. ALLERGIES: 1. FLUTICASONE. 2. THIOPENTAL. VITAL SIGNS: Reviewed in EMR - stable. PHYSICAL EXAM: HEENT: Oral mucosa - pink and moist, no conjunctival pallor, sclera anicteric bilaterally. LYMPHATICS: Prior exam, no cervical, supraclavicular, axillary or inguinal LAD. LUNGS: Clear to auscultation bilaterally, resonant to percussion bilaterally. HEART: Regular rhythm, no murmurs, no S3/S4, no rubs. ABDOMEN: Soft, nontender, bowel sounds normoactive, no hepatosplenomegaly. EXTREMITIES: No edema bilaterally. Calves, nontender bilaterally. SKIN/NAILS: No nail changes. No petechiae/ecchymosis or other skin changes. MUSCULOSKELETAL: Spine nontender to palpation. INVESTIGATIONS: Reviewed in the EMR. ASSESSMENT/PLAN: 1. Esophageal cancer with no evidence of intrathoracic or distant mets per PET CT. Currently on carboplatin/Taxol with concurrent radiation. Tolerating this regimen well without any prohibitive hematological or non-hematological toxicities. Had grade 1 diarrhea last week for one day, resolved with Imodium three tablets. CBC - WBC 3.7, ANC 2700, hemoglobin 10.9, platelets 218 - proceed with week 4 of chemoradiation. 2. Iron deficiency with ferritin on 06/08/2019 inappropriately normal at 13 in the setting of diagnosed malignancy. S/P Injectafer x2 doses, ended 06/23/2019. Will update iron indices 5-6 weeks after last dose. 3. Leukopenia without neutropenia. Monitor counts closely, non prohibitive for chemotherapy and radiation today. FOLLOWUP: Weekly Chemo-XRT, 2 weeks for reassessment and toxicity check. All of the above was relayed to the patient who was given an opportunity to ask questions that were answered to satisfaction. he patient voiced an understanding and agreed to proceed. Electronically Signed by Peter De La Cruz MD 07/19/2019 10:51 A DD: Peter De La Cruz MD 07/18/2019 06:00 P DT: [email or web address] 07/19/2019 06:02 A CC:
[2019-08-01 14:03] LABS: PERCENT SATURATION 24.4 % (19.7-50.0)
--- NOTE | 2019-08-18 15:51 | MEDONCTEEN ---
Date/Time of Encounter Date of Encounter: Aug 18, 2019 Telephone Encounter error VELASQUEZ MERINO MD Aug 18, 2019 15:51
--- NOTE | 2019-08-19 00:33 | MEDONC ---
ADDENDUM: Per review of [facility], Dr. Calvo notes lesion is T3N0M0. On 08/18/2019, patient and called, they saw Dr. Calvo earlier in the week, and with significantly improved PET scan dated 08/01/19 with previously noted bulky distal esophageal hypermetabolic mass that improved in size and avidity going from SUV of 29.9 to 8.14, plan is to proceed with surgery mid August. Since they were recently down in [facility], due to COVID-19 pandemic, they opted not to keep their [facility] followup appointment today. Patient stated he felt well, has no issues with pain or difficulty in swallowing, and has no complaints. They will reschedule their followup for 3-4 weeks after surgery with the pathology report. Unreviewed DD: Peter De La Cruz MD 08/18/2019 03:53 P DT: [email or web address] 08/18/2019 05:06 P CC:
[2019-10-12 15:08] VITALS: BP 143/77
--- NOTE | 2019-10-12 15:09 | MEDONCPDOC ---
Medical Oncology Office Note Date of Service: October 12, 2019 Diagnosis/Treatment History ONCOLOGY PROBLEM LIST 1. 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 Patient had to have multifocal liver me tastasis at time of attempted esophagectomy. HER-2/monica negative, PDL 1 unknown, MSI intact 2. Multiple liver lesions involving both lobes the liver 3. Morbid obesity 4. Treatment-related anemia 5. Elevation of creatinine, suspect this is transient due to recent surgery 6. Iron deficiency anemia status post injectafer x2 doses, ended 06/23/2019 7. New development of chronic kidney disease, this may be secondary to dehydration and may improve when next tested HISTORY OF PRESENT ILLNESS Patient initially was clinically staged at a T3 N0 M0. Patient underwent neoadjuvant chemoradiotherapy. Restaging scans did not show metastatic disease. Patient then underwent surgery for esophagectomy. During the operation, patient was noted to have liver lesions. Biopsies on both lobes of the liver show p ositive adenocarcinoma. 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 We will request the biopsy results from [facility] and see if it's included a fact and we will request PDL 1 expression DIAGNOSIS AND TREATMENT HISTORY: Per prior notes and patient's history. T3N0M0, grade III, HER2/monica 1+, negative. - 03/12/2019 began to develop dysphagia to solids more than liquids. - 04/28/2019 EGD - large ulceration, no bleeding, and no stigmata of recent bleeding, distal esophageal mass near GEJ from 31 cm to 38 cm from incisors, partially obstructing and partially circumferential - BX c/w high grade adenocarcinoma. - 05/09/2019 PET - esophageal mass SUV 29.95, 5 cm in the greatest dimension, no evidence of mets. - [place] [facility] [place] was recommended concurrent chemotherapy radiatio n followed by possible surgery. Baseline CEA 06/08/19 27.4. - 06/13/2019 commenced carboplatin/Taxol with concurrent radiation. -09/21/2019 aborted esophagectomy due to visualize liver metastasis with biopsies confirming bilobed disease Interval History Prolonged visit today. Patient's was present We reviewed treatment up-to-date. We reviewed results of the liver biopsy We discussed the fact the patient has stage IV, metastatic terminal adenocarcinoma of the distal esophagus. Patient understands he has vital organ involvement Patient understands without treatment is expected survival is less than one year and possibly less than 6 months We talked about option for second opinion if patient so wishes Patient's wanted to know about liver directed therapy and we talked about that. Essentially we do need more information regarding current status of his metas tatic disease. Therefore we have ordered CT of chest abdomen pelvis and MRI of the liver Principles of care discussed Role of systemic therapy as upfront therapy discussed. NCCN guidelines reviewed in detail with patient and appropriate pages printed and given to patient Chemotherapy regimens also discussed and choice of FOLFOX discussed with patient Potential expected side effects of high-dose systemic therapy compared to chemoradiotherapy dose discussed Patient tolerated chemotherapy well Chemotherapy teaching will be scheduled Patient has given full informed consent to proceed and has signed consent form for treatment with palliative chemotherapy Again goals of care was discussed Patient knows this is a noncurable condition Patient knows that we need control of his malignancy given that it is in a vital organ and without control, patient will succumb to the disease sooner rather than later Patient's wanted know that immunotherapy I discussed that immunotherapy is not an option for upfront treatment of newly metastatic esophageal cancer outside of a clinical trial I discussed utility of a clinical trial now or in the future Options discussed regarding referral back to [facility] Allergies Coded Allergies: fluticasone (Verified Allergy, Unknown, 03/06/19) thiopental (Verified Allergy, Unknown, 03/07/19) Home Medications Reported Medications Diclofenac Sodium (Diclofenac Sodium) 50 Mg Tablet., 50 MG PO BID for 30 Days, #60 TAB 10/12/19 Cannabidiol (CBD OIL) Btl, 1 ML PO BID PRN for BACK PAIN 05/26/19 Latanoprost (Xalatan) 0.005% 2.5ML Drops, 1 DROP OU QHS 03/06/19 Umeclidinium Brm/Vilanterol Tr (Anoro Ellipta 62.5-25 Mcg INH) 1 Each Blst.w.dev, 1 PUFF INH DAILY 03/06/19 Bumetanide (Bumetanide) 1 Mg Tablet, 1 MG PO DAILY, TAB 03/06/19 Tramadol HCl (Tramadol HCl) 50 Mg Tablet, 50 MG PO QID PRN for PAIN, TAB 03/06/19 Pregabalin (Lyrica) 75 Mg Capsule, 75 MG PO TID, CAP 03/06/19 Lanolin Alcohol/Mo/W.pet/[place] (Eucerin Creme) 454 Gm Cream..g., 1 DOSE TOP QID PRN for PSORIASIS 03/06/19 Ubidecarenone (Co Q-10) 400 Mg Capsule, 400 MG PO DAILY, CAP 03/06/19 Vitamin B Complex (Vitamin B Complex) 1 Each Tablet, 1 TAB PO DAILY, TAB 03/06/19 Guaifenesin (Mucinex) 600 Mg Tab.er.12h, 600 MG PO BID 03/06/19 Cyclosporine (Restasis) 0.05% Droperette, 1 DROP OU BID 03/06/19 Cetirizine HCl (Cetirizine HCl) 10 Mg Tablet, 10 MG PO QHS, TAB 03/06/19 Magnesium Oxide (Magnesium Oxide) 400 Mg Tablet, 400 MG PO BID, TAB 03/06/19 Calcium Polycarbophil (Calcium Polycarbophil) 625 Mg Tablet, 1250 MG PO BID, TAB 03/06/19 Glucosamine/D3/Boswellia Kasia (Osteo Bi-Flex Caplet) 1 Each Tablet, 2 TAB PO DAILY, TAB 03/06/19 Acetaminophen (Acetaminophen) 500 Mg Tablet, 1000 MG PO Q6H PRN for PAIN, TAB 03/06/19 Omeprazole (Omeprazole) 40 Mg Capsule.dr, 40 MG PO DAILY, CAP 03/06/19 Losartan/Hydrochlorothiazide (Losartan-Hctz 100-12.5 mg Tab) 1 Each Tablet, 1 TAB PO DAILY, TAB 03/06/19 Sulfasalazine (Sulfasalazine) 500 Mg Tab, 1000 MG PO DAILY, TAB 12/17/15 Fenofibric Acid (Choline) (Fenofibric Acid) 135 Mg Cap, 135 MG PO QHS, CAP 12/17/15 Potassium Chloride (Klor-Con M10) 10 Meq Tabcr, 10 MEQ PO DAILY, TABCR 7/26/16 Baclofen (Baclofen) 10 Mg Tab, 10 MG PO TID, TAB 12/17/15 Pramipexole Di-HCl (Mirapex) 0.125 Mg Tab, 0.125 MG PO QHS, TAB 12/17/15 Budesonide (Budesonide) 0.5 Mg/2 Ml Neb, 0.5 MG INH BID, AYAKA WITH BROVANA 02/14/15 Donepezil HCl (Aricept) 10 Mg Tab, 10 MG PO DAILY, TAB 02/14/15 Mometasone Furoate Monohydrate (Nasonex) 120 [place]/17 Gm Naspr, 1 SPRAY NA BID, SPRAY 02/14/15 Montelukast Sodium (Singulair) 10 Mg Tab, 10 MG PO QHS, TAB 02/14/15 Multivitamins (Thera M Plus Tablet) 1 Tab Tab, 1 TAB PO DAILY, TAB 02/14/15 Ascorbic Acid (Vitamin C) 500 Mg Tab, 500 MG PO DAILY, TAB 02/14/15 Aspirin (Aspirin EC) 81 Mg Tab, 81 MG PO QHS, TAB 02/14/15 Allopurinol (Zyloprim) 300 Mg Tab, 300 MG PO DAILY, TAB 02/14/15 Spironolactone (Spironolactone) 50 Mg Tab, 50 MG PO BID, TAB 02/14/15 Discontinued Scripts Prochlorperazine Maleate (Prochlorperazine Maleate) 10 Mg Tablet, 10 MG PO Q4- 6HP PRN for NAUSEA OR VOMITING, #30 TAB Prov:VELASQUEZ MERINO MD 06/13/19 Ondansetron HCl (Ondansetron HCl) 8 Mg Tablet, 8 MG PO BID, #40 TAB Take on days 2-4 of chemotherapy. Prov:VELASQUEZ MERINO MD 06/13/19 Past Medical History Past Medical History: Arthritis. Emphysema. COPD. Type 2 diabetes. CKD. B/LT total knee replacement. Left shoulder replacement. Spinal stenosis. TUSHAR - uses CPAP. Gout. Cataracts. Bilateral carpal tunnel surgery. Inguinal hernia repair. Past Surgical History: Aborted esophagectomy with liver biopsy Family History: Noncontributory Social History: Currently nonsmoker nondrinker Review of Systems General: Reports: Normal Appetite; Denies: Chills, Fatigue, Malaise Constitutional: Reports: Fatigue Eyes: Denies: Vision change HEENT: Denies: Head Aches, Dysphagia, Sore Throat, Epistaxis Skin: Denies: Rash, Lesions, Jaundice, Bruising Pulmonary: Denies: Dyspnea, Cough Cardiovascular: Denies: Chest Pain, Palpitations, Orthopnea, Edema Gastrointestinal: Reports: Abdominal Pain (improvement) Genitourinary: Denies: Dysuria, Frequency, Incontinence Hematologic: Denies: Bruising, Petecchia Endocrine: Reports: Cold Intolerance Musculoskeletal: Reports: Leg pain, Foot pain, Other (chronic long-term edema) Neurological: Reports: Weakness, Numbness; Denies: Change in Speech Psych: Reports: Mood Normal Physical Examination General Exam: Positive: Alert, No Acute Distress Eye Exam: Positive: PERRLA, Conjunctiva & lids normal; Negative: Sclera icteric ENT EXAM: Positive: Atraumatic, Mucous membr. moist/pink Neck Exam: Reports: Supple; Denies: JVD, Thyromegaly, Lymphadenopathy Chest Exam: Positive: Diminished Heart Exam: Positive: Other (diminished) Abdomen Exam: Positive: Other (morbidly obese) Extremity Exam: Positive: Swelling (2+ edema noted bilaterally) Skin Exam: Positive: Other skin issue (chronic venous stasis changes to lower extremity) Neuro Exam: Positive: Normal Speech, Normal Tone Psych Exam: Positive: Mental status NL Ht / Wt Ht / Wt Height:5 Feet 8.25 Inches Weight: 136.000 Kg Laboratory Data Laboratory Tests Test 10/12/19 14:55 Blood Urea Nitrogen 43 MG/DL (7-18) H Creatinine 1.52 MG/DL (0.70-1.30) H Glomerular Filtration Rate 47.8 (>42) Fasting Glucose 92 MG/DL (70-100) Calcium Level 9.3 MG/DL (8.8-10.2) Total Bilirubin 0.3 MG/DL (0.2-1.0) Aspartate Amino Transf (AST/SGOT) 68 U/L (7-37) H Alanine Aminotransferase (ALT/SGPT) 27 U/L (12-78) Total Protein 6.6 GM/DL (6.4-8.2) Sodium Level 141 MEQ/L (136-145) Albumin 2.7 GM/DL (3.2-5.2) L Alkaline Phosphatase 136 U/L (45-117) H Potassium Level 5.0 MEQ/L (3.5-5.1) Chloride Level 110 MEQ/L (98-107) H Carbon Dioxide Level 27 MEQ/L (21-32) Anion Gap 4 MEQ/L (8-16) L Laboratory Tests 10/12/19 14:54 10/12/19 14:55 Laboratory Tests 10/12/19 14:54 Assessment/Plan Assessment 1. Stage IV metastatic adenocarcinoma the distal esophagus status post neoadjuvant chemoradiotherapy with carboplatin and paclitaxel with initial clinical stage T3N0M0. Patient had to have multifocal liver metastasis at time of attempted esophagectomy. HER-2/monica negative, PDL 1 unknown, MSI intact 2. Multiple liver lesions involving both lobes the liver 3. Morbid obesity 4. Treatment-related anemia 5. Elevation of creatinine, suspect this is transient due to recent surgery 6. Iron deficiency anemia status post injectafer x2 doses, ended 06/23/2019 7. New development of chronic kidney disease, this may be secondary to dehydration and may improve when next tested Plan Obtain pathology report of the liver biopsy and see if PDL 1 expression was tested if not we'll request CT chest abdomen and pelvis for restaging MRI of liver to assess biopsy-proven disease and quantitate amount of cancer and liver Plan on palliative chemotherapy with FOLFOX with 20% dose reduction of oxaliplatin and continuous infusion 5 fluorouracil due to severe morbid obesity with a BMI of 46 and concern for overt toxicity due to high-dose of chemotherapy Consent form signed Chemotherapy teaching to be scheduled Antiemetic therapy as needed with Zofran 8 mg 3 times a day when necessary with 30 and Compazine 10 mg 3 times a day when necessary #30 to be called in Follow-up in 2 weeks' time Palliative chemotherapy to begin in 2-3 weeks' time CC TO: Primary Care Provider: Ron Mcmillan, [facility] Addison Llamas M.D. Problems: (1) GERD (gastroesophageal reflux disease) (2) Chronic obstructive airway disease with asthma (3) Hyperlipidemia (4) Hypertension (5) Diabetes (6) TUSHAR on CPAP (7) Morbid obesity (8) Decreased ambulation status (9) Primary adenocarcinoma of distal third of esophagus (10) Liver metastases (11) Morbid obesity with body mass index (BMI) of 45.0 to 49.9 in adult KADI MALDONADO MD October 12, 2019 15:09
[2019-10-12 15:12] LABS: BASO # 0.1 10^3/uL (0.0-0.2); BASO % 0.8 % (0.0-1.0); EOS # 0.8 10^3/uL (0.0-0.5); EOS % 9.8 % (0.0-3.0); HEMATOCRIT 33.4 % (42.0-52.0); HEMOGLOBIN 10.7 g/dl (13.5-17.5); MEAN CORPUSCULAR HEMOGLOBIN 33.6 pg (27.0-33.0); MONO % 12.1 % (0.0-5.0); PLATELET COUNT, AUTOMATED 292 10^3/uL (150-450); RED BLOOD COUNT 3.18 10^6/uL (4.30-6.10); WHITE BLOOD COUNT 7.9 10^3/uL (4.0-10.0)
[2019-10-12 15:31] LABS: CREATININE FOR GFR 1.52 MG/DL (0.70-1.30); GLOMERULAR FILTRATION RATE 47.8 (>42)
[2019-10-12 15:32] LABS: ALBUMIN 2.7 GM/DL (3.2-5.2); BILIRUBIN,TOTAL 0.3 MG/DL (0.2-1.0); CALCIUM LEVEL 9.3 MG/DL (8.8-10.2); TOTAL PROTEIN 6.6 GM/DL (6.4-8.2)
[2019-10-12 15:45] LABS: PERCENT SATURATION 13.8 % (19.7-50.0)
[2019-11-03] MEDS: SODIUM CHLORIDE 0.9% INJ 10 ML SYR IV PRN ×2 (12:35→13:50)
[2019-11-03 12:53] LABS: BASO # 0.1 10^3/uL (0.0-0.2); BASO % 0.4 % (0.0-1.0); EOS % 0.1 % (0.0-3.0); HEMATOCRIT 38.6 % (42.0-52.0); HEMOGLOBIN 12.4 g/dl (13.5-17.5); LYMPH # 0.7 10^3/uL (1.5-5.0); LYMPH % 4.7 % (24.0-44.0); MEAN CORPUSCULAR HEMOGLOBIN 32.2 pg (27.0-33.0); MEAN CORPUSCULAR HGB CONC 32.1 g/dl (32.0-36.5); MEAN CORPUSCULAR VOLUME 100.3 fl (80.0-96.0); MONO # 0.9 10^3/uL (0.0-0.8); MONO % 6.5 % (0.0-5.0); NEUTROPHILS % 85.8 % (36.0-66.0); PLATELET COUNT, AUTOMATED 375 10^3/uL (150-450); RED BLOOD COUNT 3.85 10^6/uL (4.30-6.10); WHITE BLOOD COUNT 13.9 10^3/uL (4.0-10.0)
[2019-11-03 13:06] VITALS: BP 115/70
[2019-11-03 13:27] LABS: ALBUMIN 2.9 GM/DL (3.2-5.2); BILIRUBIN,TOTAL 0.9 MG/DL (0.2-1.0); CREATININE FOR GFR 2.02 MG/DL (0.70-1.30); GLOMERULAR FILTRATION RATE 34.4 (>42); TOTAL PROTEIN 7.7 GM/DL (6.4-8.2)
--- NOTE | 2019-11-10 16:40 | MEDONCPDOC ---
Medical Oncology Office Note Date of Service: Nov 03, 2019 Diagnosis/Treatment History ONCOLOGY PROBLEM LIST 1. 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 Patient had to have multifocal liver me tastasis at time of attempted esophagectomy. HER-2/monica negative, PDL 1 unknown, MSI intact 2. Multiple liver lesions involving both lobes the liver 3. Morbid obesity 4. Treatment-related anemia 5. Elevation of creatinine, suspect this is transient due to recent surgery 6. Iron deficiency anemia status post injectafer x2 doses, ended 06/23/2019 7. New development of chronic kidney disease, this may be secondary to dehydration and may improve when next tested HISTORY OF PRESENT ILLNESS Patient initially was clinically staged at a T3 N0 M0. Patient underwent neoadjuvant chemoradiotherapy. Restaging scans did not show metastatic disease. Patient then underwent surgery for esophagectomy. During the operation, patient was noted to have liver lesions. Biopsies on both lobes of the liver show p ositive adenocarcinoma. We do have the 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 We will request the biopsy results from [facility] and see if it's included a fact and we will request PDL 1 expression DIAGNOSIS AND TREATMENT HISTORY: Per prior notes and patient's history. T3N0M0, grade III, HER2/monica 1+, negative. - 03/12/2019 began to develop dysphagia to solids more than liquids. - 04/28/2019 EGD - large ulceration, no bleeding, and no stigmata of recent bleeding, distal esophageal mass near GEJ from 31 cm to 38 cm from incisors, partially obstructing and partially circumferential - BX c/w high grade adenocarcinoma. - 05/09/2019 PET - esophageal mass SUV 29.95, 5 cm in the greatest dimension, no evidence of mets. - Saw surgical oncology [facility] - was recommended concurrent chemotherapy radiatio n followed by possible surgery. Baseline CEA 06/08/19 27.4. - 06/13/2019 commenced carboplatin/Taxol with concurrent radiation. -09/21/2019 aborted esophagectomy due to visualize liver metastasis with biopsies confirming bilobed disease Interval History Patient is having trouble swallowing He can still handle liquids, Allergies Coded Allergies: thiopental (Verified Allergy, Unknown, 11/06/19) fluticasone (Verified Adverse Reaction, Mild, coughing/hacking/stuffy nose, 11/06/19) Home Medications Active Scripts Prochlorperazine Maleate (Prochlorperazine Maleate) 10 Mg Tablet, 10 MG PO Q8HP PRN for NAUSEA OR VOMITING, #30 TAB 0 Refills Prov:KADI MALDONADO MD 10/13/19 Ondansetron HCl (Ondansetron HCl) 8 Mg Tablet, 8 MG PO Q8HP PRN for NAUSEA OR VOMITING, #30 TAB 0 Refills Prov:KADI MALDONADO MD 10/13/19 Reported Medications Psyllium Husk (Fiber) 0.52 Gm Capsule, 0.52 GM PO DAILY, CAP 11/06/19 Losartan Potassium (Losartan Potassium) 25 Mg Tablet, 25 MG PO DAILY, TAB 11/06/19 Cetirizine HCl (Cetirizine HCl) 5 Mg Tablet, 5 MG PO QHS, TAB 11/06/19 Ubidecarenone (Co Q-10) 200 Mg Capsule, 400 MG PO DAILY 11/06/19 Glucosam/Arthur-Msm1/C/Steve/Bosw (Osteo Bi-Flex Caplet) 1 Each Tablet, 2 TAB PO DAILY, TAB 11/06/19 Ezetimibe (Zetia) 10 Mg Tablet, 10 MG PO QHS 11/06/19 Arformoterol Tartrate (Brovana) 15 Mcg/2 Ml Vial.neb, 1 VIAL NEB BID MIX WITH BUDESONIDE 10/26/19 Cannabidiol (CBD OIL) Btl, 1 ML PO BID PRN for BACK PAIN 05/26/19 Latanoprost (Xalatan) 0.005% 2.5ML Drops, 1 DROP OU QHS 03/06/19 Umeclidinium Brm/Vilanterol Tr (Anoro Ellipta 62.5-25 Mcg INH) 1 Each Blst.w.dev, 1 PUFF INH DAILY 03/06/19 Pregabalin (Lyrica) 75 Mg Capsule, 75 MG PO TID, CAP 03/06/19 Vitamin B Complex (Vitamin B Complex) 1 Each Tablet, 1 TAB PO DAILY, TAB 03/06/19 Guaifenesin (Mucinex) 600 Mg Tab.er.12h, 600 MG PO BID 03/06/19 Cyclosporine (Restasis) 0.05% Droperette, 1 DROP OU DAILY 03/06/19 Magnesium Oxide (Magnesium Oxide) 400 Mg Tablet, 400 MG PO BID, TAB 03/06/19 Acetaminophen (Acetaminophen) 500 Mg Tablet, 1000 MG PO Q6H PRN for PAIN, TAB 03/06/19 Omeprazole (Omeprazole) 40 Mg Capsule.dr, 40 MG PO DAILY, CAP 03/06/19 Sulfasalazine (Sulfasalazine) 500 Mg Tab, 1000 MG PO DAILY, TAB 12/17/15 Fenofibric Acid (Choline) (Fenofibric Acid) 135 Mg Cap, 135 MG PO QHS, CAP 12/17/15 Pramipexole Di-HCl (Mirapex) 0.125 Mg Tab, 0.125 MG PO QHS, TAB 12/17/15 Budesonide (Budesonide) 0.5 Mg/2 Ml Neb, 1 VIAL NEB BID, AYAKA WITH BROVANA 02/14/15 Donepezil HCl (Aricept) 10 Mg Tab, 10 MG PO DAILY, TAB 02/14/15 Mometasone Furoate Monohydrate (Nasonex) 120 [place]/17 Gm Naspr, 1 SPRAY NARES B ID, SPRAY 02/14/15 Montelukast Sodium (Singulair) 10 Mg Tab, 10 MG PO QHS, TAB 02/14/15 Multivitamins (Thera M Plus Tablet) 1 Tab Tab, 1 TAB PO DAILY, TAB 02/14/15 Ascorbic Acid (Vitamin C) 500 Mg Tab, 500 MG PO DAILY, TAB 02/14/15 Aspirin (Aspirin EC) 81 Mg Tab, 81 MG PO DAILY 02/14/15 Allopurinol (Zyloprim) 300 Mg Tab, 300 MG PO DAILY, TAB 02/14/15 Discontinued Reported Medications Spironolactone (Spironolactone) 25 Mg Tablet, 25 MG PO BID, TAB 11/06/19 Baclofen (Baclofen) 10 Mg Tablet, 5 MG PO TID, TAB 11/06/19 Diclofenac Sodium (Diclofenac Sodium) 75 Mg Tablet.dr, 75 MG PO BID 10/26/19 Bumetanide (Bumetanide) 1 Mg Tablet, 1 MG PO DAILY, TAB 03/06/19 Tramadol HCl (Tramadol HCl) 50 Mg Tablet, 50 MG PO QID PRN for PAIN, TAB 03/06/19 Potassium Chloride (Klor-Con M10) 10 Meq Tabcr, 10 MEQ PO DAILY, TABCR 12/17/15 Prednisone (Prednisone) 10 Mg Tablet, 10 MG PO BID for 10 Days, TAB 11/03/19 Lanolin Alcohol/Mo/W.pet/Percival (Eucerin Creme) 454 Gm Cream..g., 1 DOSE TOP QID PRN for PSORIASIS 03/06/19 Ubidecarenone (Co Q-10) 400 Mg Capsule, 400 MG PO DAILY, CAP 03/06/19 Cetirizine HCl (Cetirizine HCl) 10 Mg Tablet, 10 MG PO QHS, TAB 03/06/19 Calcium Polycarbophil (Calcium Polycarbophil) 625 Mg Tablet, 1250 MG PO BID, TAB 03/06/19 Glucosamine/D3/Boswellia Kasia (Osteo Bi-Flex Caplet) 1 Each Tablet, 2 TAB PO DAILY, TAB 03/06/19 Discontinued Scripts Baclofen (Baclofen) 10 Mg Tab, 5 MG PO TID for 1 Day, #1 TAB Prov:ARIEL RAMOS MD 10/27/19 Losartan Potassium (Losartan Potassium) 25 Mg Tablet, 1 TAB PO DAILY for 30 Days, #30 TAB Prov:ARIEL RAMOS MD 10/27/19 Spironolactone (Spironolactone) 25 Mg Tablet, 1 TAB PO BID MDD q for 30 Days, #60 TAB Prov:ARIEL RAMOS MD 10/27/19 Past Medical History Past Medical History: Arthritis. Emphysema. COPD. Type 2 diabetes. CKD. B/LT total knee replacement. Left shoulder replacement. Spinal stenosis. TUSHAR - uses CPAP. Gout. Cataracts. Bilateral carpal tunnel surgery. Inguinal hernia repair. Past Surgical History: Aborted esophagectomy with liver biopsy Family History: Noncontributory Social History: Currently nonsmoker nondrinker Review of Systems General: Reports: Normal Appetite; Denies: Chills, Fatigue, Malaise Constitutional: Denies: Chills, Fatigue, Weight Loss Eyes: Denies: Vision change HEENT: Denies: Head Aches, Dysphagia, Sore Throat, Epistaxis Skin: Denies: Rash, Lesions, Jaundice, Bruising Pulmonary: Denies: Dyspnea, Cough Cardiovascular: Denies: Chest Pain, Palpitations, Orthopnea, Edema Gastrointestinal: Reports: Nausea, Other Symptoms (difficulty swallowing); Denies: Vomiting, Diarrhea Genitourinary: Denies: Dysuria, Frequency, Incontinence Hematologic: Denies: Bruising, Petecchia Neurological: Reports: Weakness, Numbness; Denies: Change in Speech Psych: Reports: Mood Normal Physical Examination General Exam: Positive: Alert, No Acute Distress Eye Exam: Positive: PERRLA, Conjunctiva & lids normal; Negative: Sclera icteric ENT EXAM: Positive: Atraumatic, Mucous membr. moist/pink Neck Exam: Reports: Supple; Denies: JVD, Thyromegaly, Lymphadenopathy Chest Exam: Positive: Clear to auscultation, Normal air movement Heart Exam: Positive: Rate Normal Abdomen Exam: Positive: Normal bowel sounds; Negative: Tenderness, Hepatospenomegaly, Mass Extremity Exam: Negative: Clubbing, Cyanosis, Edema Skin Exam: Positive: Nl turgor and temperature; Negative: Rash, Breakdown, Lesion Neuro Exam: Positive: Normal Speech, Normal Tone Psych Exam: Positive: Mental status NL Ht / Wt Ht / Wt Height:5 Feet 8.25 Inches Weight: 128.000 Kg Laboratory Data Laboratory Tests Test 11/03/19 12:43 11/06/19 09:50 11/07/19 06:37 11/08/19 05:43 Blood Urea Nitrogen 37 MG/DL (7-18) H 63 MG/DL (7-18) #H 45 MG/DL (7-18) H 36 MG/DL (7-18) H Creatinine 2.02 MG/DL (0.70-1.30) H 2.85 MG/DL (0.70-1.30) H 1.56 MG/DL (0.70-1.30) H 1.22 MG/DL (0.70-1.30) Glomerular Filtration Rate 34.4 (>42) L 23.1 (>42) L 46.3 (>42) > 60.0 (>42) Fasting Glucose 116 MG/DL (70-100) H 83 MG/DL (70-100) 83 MG/DL (70-100) 107 MG/DL (70-100) H Calcium Level 11.0 MG/DL (8.8-10.2) H 9.9 MG/DL (8.8-10.2) 10.2 MG/DL (8.8-10.2) 9.7 MG/DL (8.8-10.2) Total Bilirubin 0.9 MG/DL (0.2-1.0) 1.4 MG/DL (0.2-1.0) #H 1.6 MG/DL (0.2-1.0) H Aspartate Amino Transf (AST/SGOT) 321 U/L (7-37) H 676 U/L (7-37) H 467 U/L (7-37) H Alanine Aminotransferase (ALT/SGPT) 74 U/L (12-78) 179 U/L (12-78) H 139 U/L (12-78) H Total Protein 7.7 GM/DL (6.4-8.2) 6.2 GM/DL (6.4-8.2) L 6.7 GM/DL (6.4-8.2) Sodium Level 134 MEQ/L (136-145) L 137 MEQ/L (136-145) 137 MEQ/L (136-145) 142 MEQ/L (136-145) Albumin 2.9 GM/DL (3.2-5.2) L 2.6 GM/DL (3.2-5.2) L 2.4 GM/DL (3.2-5.2) L Alkaline Phosphatase 330 U/L (45-117) H 505 U/L (45-117) H 431 U/L (45-117) H Potassium Level 5.0 MEQ/L (3.5-5.1) 5.7 MEQ/L (3.5-5.1) H 5.0 MEQ/L (3.5-5.1) 4.6 MEQ/L (3.5-5.1) Chloride Level 104 MEQ/L (98-107) 103 MEQ/L (98-107) 106 MEQ/L (98-107) 110 MEQ/L (98-107) H Carbon Dioxide Level 25 MEQ/L (21-32) 25 MEQ/L (21-32) 26 MEQ/L (21-32) 27 MEQ/L (21-32) Anion Gap 5 MEQ/L (8-16) L 9 MEQ/L (8-16) 5 MEQ/L (8-16) L 5 MEQ/L (8-16) L Thyroid Stimulating Hormone (TSH) 0.498 uIU/ML (0.358-3.740) Magnesium Level 2.3 MG/DL (1.8-2.4) Test 11/09/19 05:53 11/10/19 06:14 Blood Urea Nitrogen 25 MG/DL (7-18) H 23 MG/DL (7-18) H Creatinine 1.05 MG/DL (0.70-1.30) 1.03 MG/DL (0.70-1.30) Glomerular Filtration Rate > 60.0 (>42) > 60.0 (>42) Fasting Glucose 106 MG/DL (70-100) H 117 MG/DL (70-100) H Calcium Level 9.5 MG/DL (8.8-10.2) 10.0 MG/DL (8.8-10.2) Sodium Level 144 MEQ/L (136-145) 143 MEQ/L (136-145) Potassium Level 4.0 MEQ/L (3.5-5.1) 4.0 MEQ/L (3.5-5.1) Chloride Level 111 MEQ/L (98-107) H 111 MEQ/L (98-107) H Carbon Dioxide Level 28 MEQ/L (21-32) 24 MEQ/L (21-32) Anion Gap 5 MEQ/L (8-16) L 8 MEQ/L (8-16) Laboratory Tests 11/08/19 05:43 11/09/19 05:53 11/10/19 06:14 Assessment/Plan Assessment 1. Stage IV metastatic adenocarcinoma the distal esophagus status post neoadjuvant chemoradiotherapy with carboplatin and paclitaxel with initial clinical stage T3N0M0. Patient had to have multifocal liver metastasis at time of attempted esophagectomy. HER-2/monica negative, PDL 1 unknown, MSI intact 2. Multiple liver lesions involving both lobes the liver 3. Morbid obesity 4. Treatment-related anemia 5. Elevation of creatinine, suspect this is transient due to recent surgery 6. Iron deficiency anemia status post injectafer x2 doses, ended 06/23/2019 7. New development of chronic kidney disease, this may be secondary to dehydration and may improve when next tested Plan patient with difficulty swallowing We suggested placement of a feeding tube CC TO: Primary Care Provider: Ron Mcmillan, [facility] [place] Addison Llamas M.D. RUBINA RAMESH MD Nov 10, 2019 16:35
[2019-11-13 08:30] VITALS: BP 78/45
[2019-11-13 08:35] LABS: BASO # 0.1 10^3/uL (0.0-0.2); BASO % 0.3 % (0.0-1.0); EOS # 0.2 10^3/uL (0.0-0.5); HEMATOCRIT 32.5 % (42.0-52.0); HEMOGLOBIN 10.9 g/dl (13.5-17.5); LYMPH # 0.6 10^3/uL (1.5-5.0); LYMPH % 3.7 % (24.0-44.0); MEAN CORPUSCULAR HEMOGLOBIN 31.3 pg (27.0-33.0); MEAN CORPUSCULAR HGB CONC 33.5 g/dl (32.0-36.5); MEAN CORPUSCULAR VOLUME 93.4 fl (80.0-96.0); MONO # 0.9 10^3/uL (0.0-0.8); MONO % 5.5 % (0.0-5.0); NEUTROPHILS # 12.9 10^3/uL (1.5-8.5); NEUTROPHILS % 83.2 % (36.0-66.0); PLATELET COUNT, AUTOMATED 265 10^3/uL (150-450); RED BLOOD COUNT 3.48 10^6/uL (4.30-6.10); WHITE BLOOD COUNT 15.5 10^3/uL (4.0-10.0)
[2019-11-13 09:21] LABS: ALBUMIN 1.9 GM/DL (3.2-5.2); BILIRUBIN,TOTAL 3.5 MG/DL (0.2-1.0); CALCIUM LEVEL 9.2 MG/DL (8.8-10.2); CREATININE FOR GFR 3.05 MG/DL (0.70-1.30); GLOMERULAR FILTRATION RATE 21.4 (>42); POTASSIUM SERUM 4.5 MEQ/L (3.5-5.1); TOTAL PROTEIN 5.6 GM/DL (6.4-8.2)
--- NOTE | 2019-11-13 09:53 | MEDONCTEEN ---
Date/Time of Encounter Date of Encounter: Nov 13, 2019 Time of Encounter: 09:30 Telephone Encounter Patient was recently discharged from the hospital after suffering from dehydr ation, and acute kidney injury. He had a peg tube placed to help with feedings and hydration. He presents today for initiation of palliative chemotherapy. He has unfortunately been found to have not only rapid progression of liver failure due to metastasis, but acute renal failure. Will proceed with IV hydration today and on 11/13 and recheck CMP on Wednesday. Due to acute decompensation of both liver and kidney, would hold on chemotherapy today. Will re-access Tuesday 11/14 and dose adjust chemotherapy if patient eligible. Discussed with RN and pharmacist this AM. He is not presently confused. Lactulose candidate if transaminitis progresses. Suspect we will transition him to hospice care on Wednesday11/15/19. KADI MALDONADO MD Nov 13, 2019 09:53
[~2019-11-14] VITALS: Ht 173.4 cm; Wt 132.0 kg
[~2019-11-14 10:46] MED LIST changes: -ALL10TAB29 PO; +ASMA16.7; +ATIV1TAB10 PO; +BACL10TA8 PO; +CARBOPLATIN IV ONE; +CETI-24 PO; +CO Q200C10 PO; +D5W IV ONE; +FAMOTIDINE 20 MG IV IV ONE; +FAMOTIDINE IV BAG 20 MG in APPROPRIATE DILUENT 1 ML IV ONE; +FERRIC CARBOXYMALTOSE INJ 750 MG in NS 250 ML IV ONE; +FLUOROURACIL IV ONE; +FOSAPREPITANT PERIPHERAL LINE 30 MIN INFUSION (PREMIX) IV ONE; +HYOS125TA PO; +JEVITY PEG; +LEUCOVORIN CALCIUM IV ONE; +MIDO5TA PO; +MORP20SO3 PO; +NS IV ONE; +ONDANSETRON 4MG/2ML VIAL IV ONE; +OSTETAB2 PO; +OXALIPLATIN IV ONE; +PACLITAXEL IV ONE; +PALONOSETRON 250 MCG IV IV ONE; +QC F0.52 PO; +SODIUM CHLORIDE 0.9% INJ 10 ML SYR IV PRN; +SODIUM CHLORIDE IV ONE; +SULF500T2; +dexameTHASONE 10 MG IV IV ONE; +dexameTHASONE 20 MG IV IV ONE; +diphenhydrAMINE 25 MG IV IV ONE
[2019-11-14 11:30] VITALS: BP 64/37
[2019-11-14 12:42] VITALS: BP 84/50
--- NOTE | 2019-11-14 12:44 | MEDONCTEEN ---
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 and innumerable nodules in lung c/w metastatic disease Hypotensive Stopped losartan today but may have already taken it Much weaker Trouble transitioning Clinical picture consistent with hepatorenal syndrome +/- sepsis Expect him to be bedridden shortly Only taking 2 cans of jevity per day via PEG Prognosis dismal Survival currently expected to be less than 4 weeks base on trajectory of decline, much more likelt to be sooner than that pending work-up Suspect past point of being able to receive palliative chemotherapy Needs to be accessed in the ER due to ongoing severe hypotension Concerned about sepsis Was in acute renal failure yesterday Jaundiced with total bilirubin 3.6 yesterday KADI MALDONADO MD Nov 14, 2019 12:44
== END | disposition home or self-care (01) ==
LOC: M ONCM 05-05 07:37
PROVIDERS: ATTEND Internal Medicine Hematology & Oncology
DX: C15.5 Malignant neoplasm of lower third of esophagus (principal); N18.9 Chronic kidney disease, unspecified; E11.9 Type 2 diabetes mellitus without complications; J44.9 Chronic obstructive pulmonary disease, unspecified; M48.00 Spinal stenosis, site unspecified; G47.33 Obstructive sleep apnea (adult) (pediatric); M10.9 Gout, unspecified
CPT/HCPCS: 36415; 36591; 80048; 80053; 82378; 82607; 82728; 82746; 83550; 85027; 85610; 85730; 86300; 96365; 96367; 96375; 96413; 96417; G0463; J1100; J1200; J1439; J1642; J2405; J9045; J9267

== ENCOUNTER 2019-11-14 12:58 | Inpatient (IN) | payer MEDICARE ==
[~2019-11-14] VITALS: Ht 172.7 cm; Wt 139.6 kg
[2019-11-14] VITALS (7 sets, daily range): BP systolic 75–110; BP diastolic 38–60
[~2019-11-14 12:58] MED LIST changes: -ASMA16.7; -ATIV1TAB10 PO; -CARBOPLATIN IV ONE; -D5W IV ONE; -FAMOTIDINE 20 MG IV IV ONE; -FAMOTIDINE IV BAG 20 MG in APPROPRIATE DILUENT 1 ML IV ONE; -FERRIC CARBOXYMALTOSE INJ 750 MG in NS 250 ML IV ONE; -FLUOROURACIL IV ONE; -FOSAPREPITANT PERIPHERAL LINE 30 MIN INFUSION (PREMIX) IV ONE; -HYOS125TA PO; -LEUCOVORIN CALCIUM IV ONE; -MIDO5TA PO; -MORP20SO3 PO; -NS IV ONE; -ONDANSETRON 4MG/2ML VIAL IV ONE; -OXALIPLATIN IV ONE; -PACLITAXEL IV ONE; -PALONOSETRON 250 MCG IV IV ONE; -SODIUM CHLORIDE 0.9% INJ 10 ML SYR IV PRN; -SODIUM CHLORIDE IV ONE; -SULF500T2; -dexameTHASONE 10 MG IV IV ONE; -dexameTHASONE 20 MG IV IV ONE; -diphenhydrAMINE 25 MG IV IV ONE
[2019-11-14] MEDS ORDERED: ASMA16.7 (13:17)
[2019-11-14] MEDS ORDERED: SULF500T2 (13:17)
[2019-11-14] MEDS ORDERED: NS 1,000 ML IV ONE ×2 (13:45→21:15)
[2019-11-14 14:28] LABS: HEMATOCRIT 30.6 % (42.0-52.0); HEMOGLOBIN 10.4 g/dl (13.5-17.5); MEAN CORPUSCULAR HEMOGLOBIN 32.1 pg (27.0-33.0); MEAN CORPUSCULAR VOLUME 94.4 fl (80.0-96.0); PLATELET COUNT, AUTOMATED 240 10^3/uL (150-450); RED BLOOD COUNT 3.24 10^6/uL (4.30-6.10); WHITE BLOOD COUNT 14.7 10^3/uL (4.0-10.0)
[2019-11-14 14:48] LABS: LYMPHOCYTES 4 % (16-44); METAMYELOCYTES 1 % (0-0); MONOCYTES 6 % (0-5); NEUTROPHILS 80 % (28-66); PLATELET ESTIMATE NORMAL (NORMAL)
[2019-11-14 14:49] LABS: ANISOCYTOSIS 1+
[2019-11-14 15:02] LABS: ALBUMIN 1.8 GM/DL (3.2-5.2); ALT/SGPT 412 U/L (12-78); BILIRUBIN,DIRECT 3.5 MG/DL (0.0-0.2); BILIRUBIN,TOTAL 4.1 MG/DL (0.2-1.0); BLOOD UREA NITROGEN 57 MG/DL (7-18); CALCIUM LEVEL 8.3 MG/DL (8.8-10.2); CARBON DIOXIDE LEVEL 18 MEQ/L (21-32); CHLORIDE LEVEL 99 MEQ/L (98-107); CK-MB VALUE MASS 2.5 NG/ML (<3.6); CPK CREATINE PHOSPHOKINASE 311 U/L (39-308); CREATININE FOR GFR 4.28 MG/DL (0.70-1.30); GLOMERULAR FILTRATION RATE 14.4 (>42); GLUCOSE, FASTING 102 MG/DL (70-100); LIPASE 173 U/L (73-393); POTASSIUM SERUM 4.9 MEQ/L (3.5-5.1); SODIUM LEVEL 132 MEQ/L (136-145); TOTAL PROTEIN 4.7 GM/DL (6.4-8.2); TROPONIN I < 0.02 NG/ML (< 0.10)
--- NOTE | 2019-11-14 16:00 | REP ---
CHEST, SINGLE VIEW: Single view of the chest is performed and compared to a prior study of 11/06/2019. Bilateral pulmonary nodules appear essentially unchanged. No definite acute infiltrate. There is left ventricular prominence unchanged. Mediastinal silhouette is unchanged. A right-sided central venous catheter is unchanged. IMPRESSION: Stable bilateral pulmonary nodules. Electronically Signed by Addison Canas MD 11/15/2019 04:39 P
[2019-11-14] MEDS ORDERED: NS 500 ML IV ONE (16:15)
[2019-11-14 16:24] LABS: SODIUM,RANDOM URINE < 10 MEQ/L
[2019-11-14] MEDS ORDERED: LOSA25TA14 PO (18:15)
--- NOTE | 2019-11-14 18:20 | REPVR ---
PROCEDURE INFORMATION: Exam: US Retroperitoneal Limited, Kidneys Exam date and time: 11/14/2019 6:06 PM Age: 74 years old Clinical indication: Abnormal findings; Abnormal lab test; Abnormal kidney function lab tests; Additional info: Acute renal failure TECHNIQUE: Imaging protocol: Real-time ultrasound of the retroperitoneum with image documentation. Examination was focused on the kidneys. COMPARISON: CT ABD PELVIS WITH CONTRAST 11/01/2019 3:50 PM FINDINGS: Right kidney: Right kidney measures 11.6 x 5.6 x 6.3 cm. Lower pole cyst right kidney measures 3.5 x 3.4 x 3.2 cm. Parenchyma unremarkable. Left kidney: Left kidney measures 10.9 x 5.1 x 6.1 cm. Upper pole cyst left kidney measures 1.9 x 2.2 x 2 cm. Parenchyma unremarkable. Bladder: Bladder not evaluated as the patient recently emptied bladder before examination. IMPRESSION: 1. Small bilateral renal cysts. No follow-up suggested. 2. Kidneys otherwise unremarkable. Electronically signed by: Jamie Desai On 11/14/2019 18:19:52 PM
[2019-11-14] MEDS ORDERED: PROCHLORPERAZINE 5 MG TAB (S0183) PO PRN (18:30)
[2019-11-14] MEDS: SODIUM BICARBONATE 75 MEQ in NS 0.45% 1,000 ML IV SCH (19:00)
--- NOTE | 2019-11-14 19:05 | HPEPDOC ---
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 He does report baseline SÁNCHEZ and a history of COPD for which he uses intermittent home O2, chronic LE edema that he reports to not be at his worst as prior, no linus blood in urine, frothy urine, dysuria,flank or suprapubic pain or fever and chills. He does report poor PO, jevity BID per PEG and barely any PO because he has early satiety. In the ED, he was hemodynamically stable with soft borderline BP, afebrile. Workup was notable for Cr 4.28, BUN 57, WBC 14.7, hgb 10.4, platelets 240, AST 1744, ALT 442, Tbili 4.1, Dbili 3.5, albumin 1.8, alk phos 733, UA with 1+ protein and 1+ blood, lactate 4.1. He is now being admitted for worsening renal function and will consult nephrology while urine lytes and renal US are pending. ROS: 12 point ROS was reviewed and all pertinent positives are listed in the HPI, and was otherwise negative. Physical Examination General: Morbidly obese, NAD, Awake, alert and oriented x 3 Eye: PERRLA, Conjunctiva & lids normal ENT: Atraumatic, dry MM Neck: Supple Chest: Bilateral basilar crackles Heart: RRR, Normal S1, Normal S2, no mrg Abdomen: Obese, hypoactive sounds, soft, nontender Extremity: WWP, 2+ LE edema bilaterally to subknees Skin: Nl turgor and temperature, chronic LE skin changes, Neuro: AOx3, 5/5 strength in all 4 extremities, clear speech Psych: Aox3 Labs: discussed above Imaging: CXR: Bilateral pulmonary nodules appear essentially unchanged. No definite acute infiltrate. There is left ventricular prominence unchanged. Mediastinal silhouette is unchanged. A right-sided central venous catheter is unchanged. 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, COPD, asthma, obstructive sleep apnea, GERD, hypertension, , hypokalemia, hyperlipidemia, diverticulosis, peptic ulcer disease, gout, psoriasis, advanced dementia, cataracts, dry eye syndrome, osteoarthritis, recently admitted for ZHANNA presumed prerenal with some improvement with hydration who now returns a few days after hospital discharge from oncology clinic where he was sent to the ED after he was noted to be having worsening renal function on labs while he reports difficulty urinating with lower than baseline urine output without new hypoxemia or worsening dyspnea or massive LE edema, actually appearing quite dry, likely hypovolemic prerenal physiology with accompanying metabolic acidosis and lactic acidosis. ZHANNA most likely 2/2 dehydration in the setting of BID can of jevity via PEG and barely any PO due to early satiety in the setting of esophageal CA -Admit patient to MedSurg floor with telemetry -IVF D51/2NS with 75bicarb at 150cc/hr to 2L -Repeat CMP on AM labs -Hold all nephrotoxic meds including allopurinol, ARB, sulfasalazine -DVT prophylaxis with heparin -PVR Q8H x 3, if there is any evidence of retention, to place park -nephrology consulted -strict I/Os Lactic acidosis: 2/2 dehydration -IVF and serial checks as it corrects Leukocytosis: -UA without evidence of acute infection -Blood cultures were drawn -lactate likely 2/2 dehydration, low suspicion for infection, will defer abx at this time -monitor CBC Esophageal adenocarcinoma, follows up with Dr Branch. -pending to start terapy, however c/b ZHANNA at this time. Dr. Branch aware, sent patient to the ED for the ZHANNA LFT abnormalities in the setting of liver mets -elevated since the previous visit -recently had MRI of abdomen on 10/29 that confirmed the liver metastases -monitor Hypertension: hold ARB in the setting of acute kidney injury and dehydration Hyperlipidemia: hold statin in the setting of worsening liver function in the setting of liver mets Gout: hold allopurinol in the setting of renal injury Dementia: Chronic -Continue home meds Psoriasis -holding sulfasalazine? Iron deficiency anemia: Chronic -monitor DVT ppx: heparin Diet: clears until we have a swallow evaluation to establish the appropriate diet Dispo: medsurg with tele Vital Signs Vital Signs Date Time Temp Pulse Resp B/P (MAP) Pulse Ox O2 Delivery O2 Flow Rate FiO2 11/14/19 17:30 103 16 95/51 (66) 11/14/19 16:45 94 11/14/19 13:00 97.6 Laboratory Data Labs 24H Laboratory Tests 2 11/14/19 14:15: Immature Granulocyte % (Auto) , Neutrophils (%) (Auto) , Nucleated Red Blood Cells % (auto) 0.5H, Neutrophils 80H, Band Neutrophils 9, Lymphocytes (Manual) 4L, Monocytes (Manual) 6H, Metamyelocytes 1H, Anisocytosis 1+, Platelet Estimate NORMAL, Anion Gap 15, Glomerular Filtration Rate 14.4L, Lactic Acid Level 4.1*H, Calcium Level 8.3L, Total Bilirubin 4.1H, Direct Bilirubin 3.5H, Aspartate Amino Transf (AST/SGOT) 1744H, Alanine Aminotransferase (ALT/SGPT) 412H, Alkaline Phosphatase 733H, Total Creatine Kinase 311H, Creatine Kinase MB 2.5, Creatine Kinase MB Relative Index 0.80, Troponin I < 0.02, Total Protein 4.7L, Albumin 1.8L, Albumin/Globulin Ratio 0.6, Lipase 173 11/14/19 15:48: Urine Color ELMER, Urine Appearance CLOUDYH, Urine pH 5.0, Urine Specific Virgil 1.019, Urine Protein 1+H, Urine Glucose (UA) NEGATIVE, Urine Ketones NEGATIVE, Urine Blood 1+H, Urine Nitrite NEGATIVE, Urine Bilirubin NEGATIVE, Urine Urobilinogen 2.0H, Urine Leukocyte Esterase NEGATIVE, Urine WBC (Auto) 1, Urine RBC (Auto) 3, Urine Hyaline Casts (Auto) 12, Urine Bacteria (Auto) NEGATIVE, Urine Squamous Epithelial Cells 0, Urine Amorphous Sediment MODERATEH, Urine Mucus (Auto) SMALL, Urine Sperm (Auto) , Urine Random Creatinine 139.0, Urine Random Sodium < 10 CBC/BMP Laboratory Tests 11/14/19 14:15 Microbiology Microbiology 11/14/19 Blood Culture, Received Pending 11/14/19 Blood Culture, Received Pending Home Medications Scheduled Allopurinol (Zyloprim) 300 Mg Tab, 300 MG PO DAILY Arformoterol Tartrate (Brovana) 15 Mcg/2 Ml Vial.neb, 1 VIAL NEB BID MIX WITH BUDESONIDE Ascorbic Acid (Vitamin C) 500 Mg Tab, 500 MG PO DAILY Aspirin (Aspirin EC) 81 Mg Tab, 81 MG PO DAILY Budesonide (Budesonide) 0.5 Mg/2 Ml Neb, 1 VIAL NEB BID WITH BROVANA Cetirizine HCl (Cetirizine HCl) 5 Mg Tablet, 5 MG PO QHS Cyclosporine (Restasis) 0.05% Droperette, 1 DROP OU DAILY Donepezil HCl (Aricept) 10 Mg Tab, 10 MG PO DAILY Ezetimibe (Zetia) 10 Mg Tablet, 10 MG PO QHS Fenofibric Acid (Choline) (Fenofibric Acid) 135 Mg Cap, 135 MG PO QHS Glucosam/Arthur-Msm1/C/Steve/Bosw (Osteo Bi-Flex Caplet) 1 Each Tablet, 2 TAB PO DAILY Guaifenesin (Mucinex) 600 Mg Tab.er.12h, 600 MG PO BID Latanoprost (Xalatan) 0.005% 2.5ML Drops, 1 DROP OU QHS Losartan Potassium (Losartan Potassium) 25 Mg Tablet, 25 MG PO DAILY D/C OF 11/14/19 AT APPT Magnesium Oxide (Magnesium Oxide) 400 Mg Tablet, 400 MG PO BID Mometasone Furoate Monohydrate (Nasonex) 120 [place]/17 Gm Naspr, 1 SPRAY NARES BID Montelukast Sodium (Singulair) 10 Mg Tab, 10 MG PO QHS Multivitamins (Thera M Plus Tablet) 1 Tab Tab, 1 TAB PO DAILY Omeprazole (Omeprazole) 40 Mg Capsule.dr, 40 MG PO DAILY Pramipexole Di-HCl (Mirapex) 0.125 Mg Tab, 0.125 MG PO QHS Pregabalin (Lyrica) 75 Mg Capsule, 75 MG PO TID Psyllium Husk (Fiber) 0.52 Gm Capsule, 0.52 GM PO DAILY Sulfasalazine (Sulfasalazine) 500 Mg Tab, 1,000 MG PO DAILY Ubidecarenone (Co Q-10) 200 Mg Capsule, 400 MG PO DAILY Umeclidinium Brm/Vilanterol Tr (Anoro Ellipta 62.5-25 Mcg INH) 1 Each Blst.w.dev, 1 PUFF INH DAILY Vitamin B Complex (Vitamin B Complex) 1 Each Tablet, 1 TAB PO DAILY [Jevity] 1.5 gisselle CAN, 1 CAN PEG BID Scheduled PRN Acetaminophen (Acetaminophen) 500 Mg Tablet, 1,000 MG PO Q6H PRN for PAIN Cannabidiol (Cbd Oil) Btl, 1 ML PO BID PRN for BACK PAIN Ondansetron HCl (Ondansetron HCl) 8 Mg Tablet, 8 MG PO Q8HP PRN for NAUSEA OR VOMITING Prochlorperazine Maleate (Prochlorperazine Maleate) 10 Mg Tablet, 10 MG PO Q8HP PRN for NAUSEA OR VOMITING Allergies Coded Allergies: thiopental (Verified Allergy, Unknown, 11/06/19) fluticasone (Verified Adverse Reaction, Mild, coughing/hacking/stuffy nose, 11/06/19) A-FIB/CHADSVASC A-FIB History Current/History of A-Fib/PAF?: No Current PO Anticoag Therapy: No Age/Risk Factor Scoring CHADSVASC: CHADSVASC Response (Comments) Value Age Risk Factor Age >/= 75 years old 2 Gender Risk Factor Male 0 Hx of CHF Yes 1 Hx of HTN Yes 1 Hx of Stroke/TIA/or VTE No 0 Hx of Diabetes Yes 1 Hx of Vascular Disease No 0 Total 5 Treatment Treatment ordered: NONE Reason Anticoagulant not given: Not indicated/[id number] MARIANGEL LACY MD Nov 14, 2019 19:05
[2019-11-14] MEDS: BUDESONIDE 0.5 MG/2 ML INHALATION SUSPENSION NEB SCH (20:29)
[2019-11-14] MEDS ORDERED: PREGABALIN 75 MG CAP(LYRICA) PO SCH (21:00)
[2019-11-14] MEDS: CETIRIZINE (ZyrTEC) 5 MG/5 ML UDC DYE FREE PO SCH (21:00)
[2019-11-14] MEDS: MONTELUKAST 10 MG TAB PO SCH (21:00)
[2019-11-14] MEDS: PRAMIPEXOLE (MIRAPEX) 0.125 MG TAB PO SCH (21:00)
[2019-11-14] MEDS: guaiFENesin ER 600 MG TAB PO SCH (21:00)
[2019-11-14] MEDS: LATANOPROST 0.005% OPHTH SOLN 2.5 ML OU SCH (21:00)
[2019-11-14] MEDS ORDERED: FENOFIBRATE 145 MG TAB (TRICOR) PO SCH (21:00)
[2019-11-14] MEDS ORDERED: EZETIMIBE 10 MG TAB (ZETIA) PO SCH (21:00)
[2019-11-14] MEDS: FLUTICASONE PROP 0.05% NASAL SPRAY 16 GM (FLONASE) NARES SCH (21:00)
[2019-11-14] MEDS: HEPARIN SOD (PORCINE) 5000UNITS/ML 1ML VIAL/SYRINGE SC SCH (21:00)
[2019-11-14] MEDS: MAGNESIUM OXIDE 400MG TAB (MAG-OX) PO SCH (21:00)
[2019-11-14] MEDS ORDERED: SODIUM CHLORIDE 0.9% INJ 10 ML SYR IV PRN (22:45)
[2019-11-14] MEDS ORDERED: NS 1,000 ML IV SCH (23:15)
[2019-11-14] MEDS: NOREPINEPHRINE BITARTRATE 16 MG in D5W 484 ML IV SCH (23:47)
[2019-11-15] VITALS (47 sets, daily range): BP systolic 70–135; BP diastolic 41–62
[2019-11-15] MEDS: SODIUM BICARBONATE 75 MEQ in NS 0.45% 1,000 ML IV SCH (02:10)
[2019-11-15 06:42] LABS: HEMATOCRIT 29.8 % (42.0-52.0); HEMOGLOBIN 10.4 g/dl (13.5-17.5); MEAN CORPUSCULAR HEMOGLOBIN 31.6 pg (27.0-33.0); MEAN CORPUSCULAR HGB CONC 34.9 g/dl (32.0-36.5); MEAN CORPUSCULAR VOLUME 90.6 fl (80.0-96.0); PLATELET COUNT, AUTOMATED 263 10^3/uL (150-450); RED BLOOD COUNT 3.29 10^6/uL (4.30-6.10); WHITE BLOOD COUNT 18.1 10^3/uL (4.0-10.0)
[2019-11-15] MEDS: BUDESONIDE 0.5 MG/2 ML INHALATION SUSPENSION NEB SCH ×2 (07:46→19:43)
[2019-11-15 08:02] LABS: ALBUMIN 1.7 GM/DL (3.2-5.2); BILIRUBIN,TOTAL 5.1 MG/DL (0.2-1.0); CREATININE FOR GFR 3.9 MG/DL (0.70-1.30); GLOMERULAR FILTRATION RATE 16.1 (>42); MAGNESIUM LEVEL 1.9 MG/DL (1.8-2.4); POTASSIUM SERUM 5.2 MEQ/L (3.5-5.1); TOTAL PROTEIN 4.4 GM/DL (6.4-8.2)
[2019-11-15] MEDS: SODIUM CHLORIDE 0.9% INJ 10 ML SYR IV SCH (09:00)
[2019-11-15] MEDS ORDERED: METAMUCIL (PSYLLIUM) PACKET PO SCH (09:00)
[2019-11-15] MEDS ORDERED: SODIUM BICARBONATE 75 MEQ in NS 0.45% 1,000 ML IV SCH (09:00)
[2019-11-15] MEDS: FLUTICASONE PROP 0.05% NASAL SPRAY 16 GM (FLONASE) NARES SCH ×2 (09:00→09:29)
[2019-11-15] MEDS ORDERED: ASCORBIC ACID 500 MG TAB PO SCH (09:00)
[2019-11-15] MEDS: ASPIRIN 81 MG ENTERIC TAB PO SCH (09:27)
[2019-11-15] MEDS: DONEPEZIL 5 MG TAB PO SCH (09:28)
[2019-11-15] MEDS: MULTIVITAMINS/MINERALS THERAP 1 TAB PO SCH (09:28)
[2019-11-15] MEDS: guaiFENesin ER 600 MG TAB PO SCH ×2 (09:28→20:25)
[2019-11-15] MEDS: PREGABALIN 75 MG CAP(LYRICA) PO SCH (09:28)
[2019-11-15] MEDS: MAGNESIUM OXIDE 400MG TAB (MAG-OX) PO SCH ×2 (09:28→20:24)
[2019-11-15] MEDS: OMEPRAZOLE 20 MG CAP PO SCH (09:29)
[2019-11-15] MEDS: HEPARIN SOD (PORCINE) 5000UNITS/ML 1ML VIAL/SYRINGE SC SCH ×2 (09:29→20:24)
[2019-11-15] MEDS: PIPERACILLIN/TAZOBACTAM SOD 2.25 GM in D5W MINI-BAG PLUS 50 ML IV SCH ×2 (09:29→17:30)
--- NOTE | 2019-11-15 09:37 | ECGEPIP ---
[facility] - ED Test Date: 2019-11-14 Pat Name: GUALBERTO KERN Department: Room: - Gender: Male Mri Manager: adolfo : 1945 Requested By: AUTUMN Pinto Order Number: [id number] Reading MD: Ilya Cortes Measurements Intervals [place] Rate: 94 P: 17 OR: 186 QRS: -25 QRSD: 146 T: -15 QT: 377 QTc: 473 Interpretive Statements SINUS RHYTHM POOR R WAVE PROGRESSION RIGHT BUNDLE BRANCH BLOCK POSSIBLE PRIOR INFERIOR INFARCT SIMILAR TO 11/06/19 Electronically Signed on 11-15-2019 9:36:45 EDT by Ilya Cortes
[2019-11-15] MEDS: D5W/0.9% SODIUM CHLORIDE 1,000 ML IV SCH ×2 (09:49→22:53)
--- NOTE | 2019-11-15 10:04 | IPNPDOC ---
Text Note Date of Service The patient was seen on 11/15/19. NOTE Interim events: -Declared linus septic shock overnight with a fever to 101.1 and hypotension to 79/65. Was given 1L NS bolus and transferred to the ICU and started on levophed. However was not started on antibiotic therapy. -had urinary catheter placed Subjective: Feels ok, no pain but short of breath with 2L NC on urine output has picked up to 60cc/hr Physical Examination General: Morbidly obese, NAD Eye: PERRLA, Conjunctiva & lids normal ENT: Atraumatic, dry MM Neck: Supple Chest: Bilateral diffuse crackles to posterior lung orozco half-way up. Heart: RRR, Normal S1, Normal S2, no mrg Abdomen: Obese, hypoactive sounds, soft, nontender Extremity: WWP, 2+ LE edema bilaterally to above knees Skin: Nl turgor and temperature, chronic LE skin changes, Neuro: AOx3, 5/5 strength in all 4 extremities, clear speech Psych: AOx3 Labs: Imaging: CXR: Bilateral pulmonary nodules appear essentially unchanged. No definite acute infiltrate. There is left ventricular prominence unchanged. Mediastinal silhouette is unchanged. A right-sided central venous catheter is unchanged. 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, COPD, asthma, obstructive sleep apnea, GERD, hypertension, , hypokalemia, hyperlipidemia, diverticulosis, peptic ulcer disease, gout, psoriasis, advanced dementia, cataracts, dry eye syndrome, osteoarthritis, recently admitted for ZHANNA presumed prerenal with some improvement with hydration who now returns a few days after hospital discharge from oncology clinic where he was sent to the ED after he was noted to be having worsening renal function on labs while he reporting low UOP and poor PO who was initially admitted for likely prerenal ZHANNA but overnight declared linus septic shock with unclear source at this time, now started on empiric vanc/zosyn pending imaging investigations. Septic shock with unclear source. Fever, tachycardia, leukocytosis, hypotension -f/u BCx, UA was without evidence of infection, CXR was without infiltrates -continue empiric vanc/zosyn -MRSA PCR swab -CT chest/A/P without contrast to investigate source -UA was unremarkable for infection -Sputum culture if he expectorates some -continues on levophed with MAP goal >65 ZHANNA most likely 2/2 dehydration in the setting of BID can of jevity via PEG and barely any PO due to early satiety in the setting of esophageal CA -Discontinue bicarb gtt and place on D5NS at 75cc/hr -continue holding all nephrotoxic meds including allopurinol, ARB, sulfasalazine -DVT prophylaxis with heparin -nephrology consulted -strict I/Os -Has park in place Lactic acidosis: 2/2 septic shock and dehydration -downtrended Esophageal adenocarcinoma, follows up with Dr Branch. -pending to start therapy, however c/b ZHANNA at this time. Dr. Branch aware, sent patient to the ED for the ZHANNA LFT abnormalities in the setting of liver mets -elevated since the previous visit -recently had MRI of abdomen on 10/29 that confirmed the liver metastases -monitor Hypertension: hold ARB in the setting of acute kidney injury, dehydration and septic shock Hyperlipidemia: hold statin in the setting of worsening liver function in the setting of liver mets Gout: hold allopurinol in the setting of renal injury Dementia: Chronic -Continue home meds Psoriasis -holding sulfasalazine? Iron deficiency anemia: Chronic -monitor DVT ppx: heparin Diet: swallow eval Dispo: ICU for shock requiring pressors VS,Fishbone, I+O VS, Fishbone, I+O Laboratory Tests 11/14/19 14:15 Vital Signs Date Time Temp Pulse Resp B/P (MAP) Pulse Ox O2 Delivery O2 Flow Rate FiO2 11/15/19 06:00 100.1 113 22 97/53 (68) 93 11/15/19 05:55 Nasal Cannula 2.0 11/15/19 05:11 40 I&O- Last 24 Hours up to 6 AM 11/15/19 06:00 Intake Total 2650 ml Output Total 1420 ml Balance 1230 ml MARIANGEL LACY MD Nov 15, 2019 06:44
--- NOTE | 2019-11-15 11:36 | REP ---
CT CHEST WITHOUT CONTRAST: HISTORY: Septic shock, rule out source. Comparison CT study November 01 2019. There is a history of esophageal malignancy. Prior study showed evidence of lung and liver mets metastatic disease. CT FINDINGS: Multiple metastatic pulmonary nodules are again seen. These show progression in size although not in number in the short interval since the November 01, 2019 study. Many of the lesions have enlarged. There is a 2.7 cm nodule in the superior segment right lower lobe which measured 1.8 cm 2 weeks ago. Similarly, a left lower lobe lesion has increased in greatest diameter from 2.8 cm to 3.1 cm. Its short-axis dimension was 2.0 cm 2 weeks ago and is 2.4 cm today. No lung infiltrate is seen. There is mild bilateral lower lobe plate-like atelectasis. No pleural effusion is seen. The distal esophageal mass and paraesophageal node is again seen. The periesophageal node measures 2.5 cm in greatest dimension today, previously 2.4 cm. There is extensive bulky low-density metastatic involvement of the liver. There is a left adrenal mass measuring 4.9 cm in greatest diameter previously 4.6 cm. IMPRESSION: Progressive pulmonary metastatic disease. No pulmonary parenchymal infiltrate. Electronically Signed by Rashard Hill MD 11/15/2019 02:57 P
--- NOTE | 2019-11-15 11:37 | REP ---
CT ABDOMEN AND PELVIS WITHOUT IV OR ORAL CONTRAST: HISTORY: Septic shock. Question source. Comparison CT study November 01, 2019. CT FINDINGS: There is extensive bulky hepatic metastatic disease with the largest confluent area of low density measuring up to 13 cm in the left lobe. These are similar to the prior study. There is a left adrenal metastatic mass 5 cm in greatest diameter. The right adrenal gland is normal. The there is a gastrostomy tube in place in the left upper quadrant. There is no evidence of abdominal abscess or free fluid. A Aguilera catheter is seen in the bladder. Prostate is enlarged. There is left colonic diverticulosis without CT evidence of diverticulitis. There are bilateral renal cysts. There is no evidence of hydronephrosis. IMPRESSION: Extensive metastatic disease in the liver and left adrenal. Left colonic diverticulosis. No abnormal fluid collection or abscess seen. Electronically Signed by Rashard Hill MD 11/15/2019 02:57 P
[2019-11-15] MEDS: VANCOMYCIN HCL 1,000 MG, VIAL MATE ADAPTER 1 EACH in D5W 250 ML IV SCH ×2 (11:53→13:42)
[2019-11-15] MEDS: ONDANSETRON 4 MG TAB PO PRN (12:02)
[2019-11-15] MEDS: TIOTROPIUM INHALER/CAPSULE (SPIRIVA) INH SCH (13:26)
[2019-11-15] MEDS: FORMOTEROL FUMARATE 20 MCG/2 ML INHALATION SOLUTION (PERFOROMIST) INH SCH ×2 (13:26→19:43)
[2019-11-15] MEDS: NOREPINEPHRINE BITARTRATE 16 MG in D5W 484 ML IV SCH (18:59)
[2019-11-15] MEDS: CETIRIZINE (ZyrTEC) 5 MG/5 ML UDC DYE FREE PO SCH (20:24)
[2019-11-15] MEDS: LATANOPROST 0.005% OPHTH SOLN 2.5 ML OU SCH (20:24)
[2019-11-15] MEDS: MONTELUKAST 10 MG TAB PO SCH (20:24)
[2019-11-15] MEDS: PRAMIPEXOLE (MIRAPEX) 0.125 MG TAB PO SCH (20:24)
[2019-11-15] MEDS: HYDROCORTISONE 100 MG/2 ML VIAL (J1720 PER 1) IV SCH (20:25)
[2019-11-15 23:01] LABS: PHOSPHORUS LEVEL 6.3 MG/DL (2.5-4.9); URIC ACID 6.1 MG/DL (3.5-7.2)
[2019-11-15] MEDS ORDERED: VANCOMYCIN INTERMITTENT/PULSE DOSING BY CLINICAL PHARMACIST PER DOSING PROTOCOL XX SCH (23:15)
[2019-11-16] VITALS (76 sets, daily range): BP systolic 65–185; BP diastolic 38–89
[2019-11-16] MEDS: PIPERACILLIN/TAZOBACTAM SOD 2.25 GM in D5W MINI-BAG PLUS 50 ML IV SCH ×3 (01:32→16:00)
[2019-11-16] MEDS: HYDROCORTISONE 100 MG/2 ML VIAL (J1720 PER 1) IV SCH ×3 (04:08→20:23)
[2019-11-16 05:20] LABS: HEMATOCRIT 28.9 % (42.0-52.0); MEAN CORPUSCULAR HEMOGLOBIN 30.9 pg (27.0-33.0); MEAN CORPUSCULAR HGB CONC 34.6 g/dl (32.0-36.5); MEAN CORPUSCULAR VOLUME 89.2 fl (80.0-96.0); PLATELET COUNT, AUTOMATED 242 10^3/uL (150-450); RED BLOOD COUNT 3.24 10^6/uL (4.30-6.10); WHITE BLOOD COUNT 16.2 10^3/uL (4.0-10.0)
[2019-11-16 05:45] LABS: ALBUMIN 1.5 GM/DL (3.2-5.2); BILIRUBIN,TOTAL 5.6 MG/DL (0.2-1.0); CALCIUM LEVEL 7.7 MG/DL (8.8-10.2); CREATININE FOR GFR 3.17 MG/DL (0.70-1.30); GLOMERULAR FILTRATION RATE 20.4 (>42); POTASSIUM SERUM 4.8 MEQ/L (3.5-5.1); TOTAL PROTEIN 4.3 GM/DL (6.4-8.2); VANCOMYCIN RANDOM 11.5 UG/ML
[2019-11-16] MEDS: FORMOTEROL FUMARATE 20 MCG/2 ML INHALATION SOLUTION (PERFOROMIST) INH SCH ×2 (08:19→19:28)
[2019-11-16] MEDS: TIOTROPIUM INHALER/CAPSULE (SPIRIVA) INH SCH (08:19)
[2019-11-16] MEDS: BUDESONIDE 0.5 MG/2 ML INHALATION SUSPENSION NEB SCH ×2 (08:19→19:28)
[2019-11-16] MEDS ORDERED: VANCOMYCIN HCL 1,000 MG, VIAL MATE ADAPTER 1 EACH in D5W 250 ML IV ONE (09:00)
--- NOTE | 2019-11-16 09:40 | CR ---
DATE OF CONSULTATION: 11/15/2019 REQUESTING PHYSICIAN: Dr. Shahid CONSULTING PHYSICIAN: Dr. Abrams REASON FOR CONSULTATION: Management of acute renal failure and metabolic acidosis. CHIEF COMPLAINT: The patient was brought to the emergency room yesterday because of abnormal labs seen by oncologist. HISTORY OF PRESENT ILLNESS: Mr. 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 He was recently admitted on 11/06/2019 at [facility] for acute kidney injury superimposed on chronic kidney disease and that was attributed to prerenal state. He was adequately hydrated and his creatinine improved to 1 on discharge. He followed up with his oncologist as outpatient and when the labs were reviewed in the oncology office the patient was found to be in acute renal failure again. His creatinine was 4.28 on arrival yesterday. He was admitted to the floor initially under the hospitalist service. However, the patient decompensated overnight. He became hypotensive and he was in shock. He was given IV fluid boluses and started on Levophed infusion. No antibiotics were given overnight. The patient's lactic acid on arrival was 4.1. I saw and evaluated the patient today morning at the bedside. He was getting IV fluid half-normal saline with 75 mEq of bicarb at 150 mL an hour. The patient is nonoliguric at this time. However, the patient did complain of some shortness of breath and wheezing and he was wearing nasal cannula when I saw him in the morning. 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 PAST SURGICAL HISTORY: 1. Bilateral cataract surgery. 2. Inguinal hernia repair. ALLERGIES: - FLUTICASONE - THIOPENTAL FAMILY HISTORY: No significant family history of end-stage renal disease requiring hemodialysis. SOCIAL HISTORY: The patient lives at home. He denies any smoking or illicit drug abuse. REVIEW OF SYSTEMS: Constitutional: The patient reports feeling very weak and tired. Eyes: He denies any blurry vision or double vision. ENT: He denies any dysphagia or odynophagia. The patient is hard of hearing. Cardiovascular: He denies any chest pain at this time. Respiratory: He reports progressive shortness of breath. GI: He reports decreased oral intake and inability to eat regular food because of adenocarcinoma of the esophagus. Genitourinary: He reports decreased urine output on arrival. Musculoskeletal: He denies any muscle aches and pains. Skin: He denies any rashes or ulcers. YARN SORTER: The patient has history of dementia. Hematology/Oncology: He denies any easy bleeding or bruising. All other review of systems is negative. PHYSICAL EXAMINATION: General: The patient is laying in bed in mild respiratory distress wearing nasal cannula. Vital Signs: Temperature is 99.6 degrees Fahrenheit, blood pressure 92/51, pulse is 119, respiratory rate of 22, saturating 94% on nasal cannula at 1 liter. Head and Neck Exam: Extraocular muscles intact. Pupils equally round and reactive to light. Mucous membranes are moist. Neck is supple. He has moderately elevated jugular venous distention (JVD). Cardiovascular: S1, S2. Tachycardia. 1+ edema of the bilateral lower extremities. Respiratory: Decreased breath sounds at the bases with mild inspiratory crackles at the bases bilaterally. Abdomen is soft, obese. Positive bowel sounds. Genitourinary: He has an indwelling Aguilera catheter. Musculoskeletal: The patient has 1+ edema of the bilateral lower extremities. YARN SORTER: The patient has baseline dementia, otherwise he moves extremities and follows commands. The patient is hard of hearing. Skin: No active rashes or ulcers were noted. Nodes: No significant cervical, axillary or inguinal lymphadenopathy was noted. LAB REVIEW: CBC showed a WBC of 18.1, hemoglobin is 10.4 and platelets are 263. He had 9 band neutrophils and 1 metamyelocyte. Urinalysis on arrival showed it was cloudy, negative nitrite, negative leukocyte esterase. Urine random sodium was less than 10 yesterday. BMP today morning showed sodium 132, potassium 5.2, chloride 101, bicarb 18, BUN 59, creatinine is 3.9 and it was 4.2 yesterday, lactic acid was 4.1 on arrival and is 3.6 now, magnesium 1.9, total bilirubin 5.1, AST 1177, ALT 346, alkaline phosphatase 714. Pro-BNP 1893. Procalcitonin is 4.65. Microbiology: Blood cultures are negative so far. IMAGING: CAT scan of the abdomen and pelvis was done which showed extensive metastatic disease in the liver and left adrenal, left colonic diverticulosis. CT of the chest was done which showed progressive pulmonary metastatic disease. There were no pulmonary parenchymal infiltrates seen. CURRENT INPATIENT MEDICATIONS: The patient's medications were all reviewed by myself. He was getting Levophed at 15 mcg. The patient was on half normal saline with 75 mEq of bicarbonate at 150 mL an hour. IV fluids was changed to D5 normal saline at 75 mL an hour because of elevated BNP. I also started the patient on Zosyn 2.25 grams IV every 8 hours and he was also started on IV vancomycin by myself. He was on vitamin C 500 mg by mouth daily which I have stopped. He is on aspirin 81 mg daily, Pulmicort 0.5 mg nebulizations four times a day, Zyrtec 5 mg at bedtime, Aricept 10 mg by mouth daily. He was on ezetimibe 10 mg at bedtime which I have stopped. He is on Tricor 145 mg by mouth at bedtime, which I have stopped because of acute renal failure. He is on Perforomist 20 mcg inhalation twice a day and heparin subcutaneous. I have started him on hydrocortisone 100 mg IV every 8 hours, magnesium oxide 400 mg by mouth twice a day, Singular 10 mg at bedtime, multivitamin 1 tablet daily, Prilosec 40 mg by mouth daily, Zofran p.r.n. He is pramipexole 0.125 mg by mouth at bedtime. He was getting gabapentin 75 mg by mouth three times a day, I have decreased it to 75 mg by mouth daily because of renal failure. I have stopped his Metamucil because the patient is hardly eating anything and he is getting Spiriva inhalations daily. ASSESSMENT: 74-year-old male with history of known metastatic adenocarcinoma of the esophagus with mets to lung and liver admitted to the intensive care unit (ICU) this time with shock, acute renal failure and metabolic acidosis. PLAN: 1. Shock. Most likely it is a combination of septic shock. The patient has metastatic lesions in lungs and liver. He has a mass to the left adrenal as well. He is currently requiring Levophed at 15 mcg. He was adequately hydrated. He actually looks a little bit to be on volume overload state. His BNP is elevated. I have decreased the IV fluid rate to 75 mL an hour at this time. Continue empiric antibiotics of vancomycin and Zosyn. Cultures have been sent. Procalcitonin level is high. Vancomycin dosing will be adjusted by pharmacy services. The patient is critically ill. His current status was discussed with his over the phone. 2. Acute renal failure superb superimposed on chronic kidney disease. It is secondary to shock, dehydration and volume depletion. Continue IV fluid hydration. The patient is nonoliguric at this time. Renal function is slowly improving. 3. Normal anion gap metabolic acidosis. It is secondary to a combination of renal failure and lactic acidosis. The lactic acidosis is secondary to metastatic liver disease and metastasis in the lungs, shock and the patient is unable to metabolize lactate in the liver. The patient was initially on IV bicarb containing fluid. Serum bicarb level is stable at 18. Fluids have been changed to D5 normal saline. 4. Hyperkalemia. The patient has mild hyperkalemia with a potassium of 5.2. I am hopeful that potassium should improve. 5. Metastatic liver disease. The patient has elevated bilirubin level along with elevated liver enzymes. It is secondary to mets in the liver from adenocarcinoma. Continue the symptomatic treatment. Avoid nephrotoxic medications. 6. Metastatic adenocarcinoma of the esophagus. The patient is currently not on any chemotherapy because he is too unstable for any treatment at this time. 7. History of chronic gout secondary to chronic kidney disease. The patient's allopurinol is on hold, but I am going to check the uric acid level. If the uric acid levels are too high, I might restart his allopurinol dose because cancer can also cause elevation of the uric acid levels. 8. COPD and metastatic lung lesions. The patient is currently getting nebulizations. He has also been started on stress dose hydrocortisone which should help with the COPD as well. 9. Metastatic left adrenal lesion. I have ordered the tomorrow morning cortisol level and I have started him on hydrocortisone 100 mg IV every 8 hours. 10. Congestive heart failure. The patient's ejection fraction is not known. It looks like the patient might have diastolic congestive heart failure. BNP is elevated. IV fluids have been decreased. Thank you for in the involving me in the care of this patient. I shall be happy to follow the patient along with you tomorrow morning. 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 Total critical care time spent in the management of this patient today morning in the ICU excluding all the procedures was 1 hour and 30 minutes. MTDD
[2019-11-16] MEDS: DONEPEZIL 5 MG TAB PO SCH (10:15)
[2019-11-16] MEDS: MULTIVITAMINS/MINERALS THERAP 1 TAB PO SCH (10:15)
[2019-11-16] MEDS: ASPIRIN 81 MG ENTERIC TAB PO SCH (10:15)
[2019-11-16] MEDS: MAGNESIUM OXIDE 400MG TAB (MAG-OX) PO SCH ×2 (10:15→20:23)
[2019-11-16] MEDS: PREGABALIN 75 MG CAP(LYRICA) PO SCH (10:15)
[2019-11-16] MEDS: HEPARIN SOD (PORCINE) 5000UNITS/ML 1ML VIAL/SYRINGE SC SCH ×2 (10:16→20:23)
[2019-11-16] MEDS: OMEPRAZOLE 20 MG CAP PO SCH (10:16)
[2019-11-16] MEDS: guaiFENesin ER 600 MG TAB PO SCH ×2 (10:16→20:23)
[2019-11-16] MEDS: SODIUM CHLORIDE 0.9% INJ 10 ML SYR IV SCH (10:17)
[2019-11-16] MEDS: ACETAMINOPHEN TAB 650MG DOSE (2X325MG) PO PRN ×2 (10:21→20:29)
[2019-11-16] MEDS: NOREPINEPHRINE BITARTRATE 16 MG in D5W 484 ML IV SCH ×3 (10:41→23:30)
[2019-11-16] MEDS ORDERED: FUROSEMIDE 40MG/4ML VIAL (J1940) IV ONE ×2 (11:00→16:00)
--- NOTE | 2019-11-16 12:13 | IPNPDOC ---
Text Note Date of Service The patient was seen on 11/16/19. NOTE Interim events: -Afebrile, however with persistent shock still on levophed. Had been off levophed briefly this morning but had symptomatic hypotension on transfer to [facility] with brief episode of unresponsiveness Subjective: Feels ok, no pain, remains on 2L NC Physical Examination General: Morbidly obese, NAD Eye: PERRLA, Conjunctiva & lids normal ENT: Atraumatic, dry MM Neck: Supple Chest: Bilateral diffuse crackles to posterior lung orozco Heart: RRR, Normal S1, Normal S2, no mrg Abdomen: Obese, hypoactive sounds, soft, nontender Extremity: WWP, 2+ LE edema bilaterally to above knees Skin: Nl turgor and temperature, chronic LE skin changes, Neuro: AOx3, 5/5 strength in all 4 extremities, clear speech Psych: AOx3 Labs: Imaging: CXR: Bilateral pulmonary nodules appear essentially unchanged. No definite acute infiltrate. There is left ventricular prominence unchanged. Mediastinal silhouette is unchanged. A right-sided central venous catheter is unchanged. renal US: unremarkable study with normal appearing kidneys without hydronephrosis or suggestion of obstructive pathology CT A/P: Extensive bulky hepatic metastatic disease with the largest confluent area of low density measuring up to 13 cm in the left lobe. These are similar to the prior study. There is a left adrenal metastatic mass 5 cm in greatest diameter. The right adrenal gland is normal. The there is a gastrostomy tube in place in the left upper quadrant. There is no evidence of abdominal abscess or free fluid. A Park catheter is seen in the bladder. Prostate is enlarged. There is left colonic diverticulosis without CT evidence of diverticulitis. CT chest: Multiple metastatic pulmonary nodules are again seen. These show progression in size although not in number in the short interval since the November 01, 2019 study. Many of the lesions have enlarged. There is a 2.7 cm nodule in the superior segment right lower lobe which measured 1.8 cm 2 weeks ago. Similarly, a left lower lobe lesion has increased in greatest diameter from 2.8 cm to 3.1 cm. Its short-axis dimension was 2.0 cm 2 weeks ago and is 2.4 cm today. No lung infiltrate is seen. There is mild bilateral lower lobe plate like atelectasis. No pleural effusion is seen. The distal esophageal mass and paraesophageal node is again seen. The periesophageal node measures 2.5 cm in greatest dimension today, previously 2.4 cm. There is extensive bulky low- density metastatic involvement of the liver. There is a left adrenal mass measuring 4.9 cm in greatest diameter previously 4.6 cm. Assessment: 74 years old white M with metastatic esophageal cancer stage IV with liver metastases, COPD, asthma, obstructive sleep apnea, GERD, hypertension, , hypokalemia, hyperlipidemia, diverticulosis, peptic ulcer disease, gout, psoriasis, advanced dementia, cataracts, dry eye syndrome, osteoarthritis, rec ently admitted for ZHANNA presumed prerenal with some improvement with hydration who now returns a few days after hospital discharge from oncology clinic where he was sent to the ED after he was noted to be having worsening renal function on labs while he reporting low UOP and poor PO who was initially admitted for likely prerenal ZHANNA but overnight declared shock with fever with unclear source and was started on empiric vanc/zosyn pending imaging investigations that now revealed extensive metastatic disease without evidence of infection. Shock, initially presumed septic with fever, however with unclear source. Fever, tachycardia, leukocytosis, hypotension -f/u BCx NGTD, UA was without evidence of infection, CXR was without infiltrates. Now s/p CT chest, A/P all with extensive metastatic disease but without evidence of acute infection, with a 4.9cm adrenal mass -continue empiric zosyn, dc vanc after MRSA PCR was negative -continues on levophed with MAP goal >65 -AM cortisol, with c/f adrenal source of shock given mass and potential for hemorrhage with metastatic disease. may require solucortef 25Q6 ZHANNA most likely 2/2 dehydration in the setting of BID can of jevity via PEG and barely any PO due to early satiety in the setting of esophageal CA. Improving with hydration -Continue D5NS at 75cc/hr -continue holding all nephrotoxic meds including allopurinol, ARB, sulfasalazine -DVT prophylaxis with heparin -nephrology consulted -strict I/Os -Has park in place Lactic acidosis: 2/2 septic shock and dehydration -downtrended Esophageal adenocarcinoma, follows up with Dr Branch. -pending to start therapy, however c/b ZHANNA at this time. Dr. Branch aware, sent patient to the ED for the ZHANNA LFT abnormalities in the setting of liver mets -elevated since the previous visit -recently had MRI of abdomen on 6/8 that confirmed the liver metastases -monitor Hypertension: hold ARB in the setting of acute kidney injury, dehydration and septic shock Hyperlipidemia: hold statin in the setting of worsening liver function in the setting of liver mets Gout: hold allopurinol in the setting of renal injury Dementia: Chronic -Continue home meds Psoriasis -holding sulfasalazine Iron deficiency anemia: Chronic -monitor DVT ppx: heparin Diet: Dispo: ICU for shock requiring pressors VS,Fishbone, I+O VS, Fishbone, I+O Laboratory Tests 11/16/19 05:01 Vital Signs Date Time Temp Pulse Resp B/P (MAP) Pulse Ox O2 Delivery O2 Flow Rate FiO2 11/16/19 06:34 98.9 85 18 84/50 (61) 96 NIPPV (BIPAP/CPAP) 2.0 11/16/19 04:00 40 I&O- Last 24 Hours up to 6 AM 11/16/19 06:00 Intake Total 3755 ml Output Total 3470 ml Balance 285 ml MARIANGEL LACY MD Nov 16, 2019 08:05
[2019-11-16] MEDS ORDERED: IPRATROPIUM 0.5MG/ALBUTEROL 2.5MG INH SOL UD 3ML (DUONEB) NEB PRN (12:30)
[2019-11-16] MEDS ORDERED: traMADol 50 MG TAB PO PRN (17:00)
[2019-11-16] MEDS ORDERED: hydrOXYzine 10 MG TAB PO PRN (17:00)
--- NOTE | 2019-11-16 18:02 | ECHO ---
DATE OF PROCEDURE: 11/16/2019 REFERRING PHYSICIAN: Dr. Radha Shahid INDICATION: Syncope. HEIGHT: 173 cm WEIGHT: 138 kg 2D MEASUREMENTS: Left ventricle diastole: 4.3 cm Ventricular septum: 1.08 cm Posterior wall: 1.09 cm Left atrium: 3.8 cm Aortic root: 3.4 cm Aortic annulus: 1.9 cm Inferior vena cava: 2.2 cm (more than 50% respiratory variation). DOPPLER MEASUREMENTS: Aortic valve velocity: 296 cm/s Aortic valve VTI: 48.5 cm/s Peak aortic valve gradient: 35 mmHg Mean aortic valve gradient: 20 mmHg Mild aortic stenosis. No aortic regurgitation. LVOT velocity: 169 cm/s LVOT VTI: 24.9 cm No mitral regurgitation. No mitral stenosis. Mitral E velocity: 86.1 cm/s Mitral A velocity: 126 cm/s Trace tricuspid regurgitation. Pulmonary acceleration time: 95 ms. No pulmonic regurgitation. MITRAL ANNULAR TISSUE DOPPLER: E prime lateral: 8.8 cm/s E prime septal: 6.3 cm/s DESCRIPTION: Rhythm was sinus. This was a moderately technically difficult echocardiogram. This was a 2D, M-mode, color flow Doppler and pulse wave Doppler examination and included mitral annular tissue Doppler. CONCLUSIONS: 1. Degenerative, calcific aortic valve disease of a 3-cusp aortic valve with severe focal thickening and focal calcific deposits. Mild reduction in aortic cusp mobility. Mild aortic stenosis. No aortic regurgitation. 2. Normal left ventricle internal dimensions and wall thickness. Normal regional left ventricular (LV) wall motion and wall thickening. Hyperdynamic LV systolic function. Left ventricular ejection fraction (LVEF) 75% by visual estimate. Grade I LV diastolic dysfunction (impaired relaxation filling pattern). 3. Suggestive of mild elevation of pulmonary artery systolic pressure. 4. Very small pericardial effusion seen over the posterior wall of the left ventricle. No diastolic chamber collapse. 5. Otherwise normal appearing echocardiogram Doppler findings. 6. Moderately technically difficult echocardiogram.
[2019-11-16] MEDS: LATANOPROST 0.005% OPHTH SOLN 2.5 ML OU SCH (20:23)
[2019-11-16] MEDS: MONTELUKAST 10 MG TAB PO SCH (20:23)
[2019-11-16] MEDS: PRAMIPEXOLE (MIRAPEX) 0.125 MG TAB PO SCH (20:23)
[2019-11-16] MEDS: CETIRIZINE (ZyrTEC) 5 MG/5 ML UDC DYE FREE PO SCH (20:23)
[2019-11-17] VITALS (72 sets, daily range): BP systolic 80–140; BP diastolic 45–75
--- NOTE | 2019-11-17 00:15 | IPN ---
DATE: 11/16/2019 SUBJECTIVE: The patient was seen and examined at the bedside today morning in the intensive care unit (ICU). He was started on broad-spectrum intravenous (IV) antibiotics. He was given IV fluid hydration, and he was also started on stress dose IV hydrocortisone because of mass in the left adrenal gland. He is feeling much better today. He was sitting in bedside commode when I saw him today morning, his Levophed was off. Renal function is improving, creatinine has come down to 3.1. However, he still has persistent elevation of lactic acid and elevation of liver enzymes. OBJECTIVE: Vital signs: Temperature is 98 degrees Fahrenheit, blood pressure is 94/54, pulse is 97, respiratory rate of 18, saturating 93% on nasal cannula at 2 liters. Intake and output: Urine output recorded is 2.9 liters yesterday, 2.2 liters so far today since overnight. Weight in the bed scale is 138.4 kg. PHYSICAL EXAMINATION: General: The patient is awake, alert, oriented times three, morbidly obese, sitting up. Head and neck exam: Extraocular muscles intact. Pupils equally round and reactive to light. Mucous membranes are moist. Neck is supple. He has elevated jugular venous distention (JVD). Cardiovascular: S1, S2, tachycardia, 2+ edema of the bilateral lower extremities. Respiratory: Mildly decreased breath sounds at the bases with inspiratory crackles at the bases. Abdomen: Soft, obese, positive bowel sounds, nontender. No organomegaly. Genitourinary: He has an indwelling Aguilera catheter. Musculoskeletal: He has 2+ edema of the bilateral lower extremities, otherwise no clubbing or cyanosis. Central nervous system (PLANNING MANAGER): The patient has baseline dementia, otherwise no focal deficits, and he moves his extremities. LAB REVIEW: CBC showed a WBC of +16.2, hemoglobin is 10, platelets are 242. BMP done today morning showed sodium 135, potassium 4.8, chloride 103, bicarbonate 20, BUN 60, creatinine is 3.1, it was 3.9 yesterday, lactic acid last night was 3.6, calcium was 7.7, total bilirubin 5.6, AST 740, ALT is 270, alkaline phosphatase is 677, albumin 1.5. Morning sample cortisol was 186. Microbiology cultures are negative so far. CURRENT INPATIENT MEDICATIONS: The patient's medications were all reviewed by myself. He was on Levophed at night time, which was weaned off in the morning, and I was told by the nursing staff that they had to start it again because of orthostatic drop in blood pressures. He continues to be on IV vancomycin and Zosyn. He was also started on hydrocortisone 100 mg IV every 8 hours. Because of his diastolic congestive heart failure, he was given a dose of Lasix 40 mg IV in the morning. No other significant change in the medications today as compared with yesterday. Bedside echocardiogram was done today, which showed degenerative calcific aortic valve with mild aortic stenosis, normal left ventricle wall motion and wall thickness. Left ventricle ejection fraction was 75% with hyperdynamic systolic function and grade 1 LV diastolic dysfunction. Mild elevation of pulmonary artery systolic pressures. ASSESSMENT/PLAN: 1. Acute kidney injury superimposed on chronic kidney disease. It was secondary to shock, hypotension and volume depletion. He was started on empiric antibiotics and IV fluids, creatinine is getting better, urine output is also improving. 2. Shock secondary to a combination of sepsis, metastatic esophageal cancer with mets in the lungs and liver. The patient was weaned off Levophed in the morning but he had to be started again. Continue empiric antibiotic vancomycin and Zosyn. Cultures are negative so far. Because of evidence of a left adrenal mass on the recent imaging, he is on a stress dose hydrocortisone as well. 3. Normal anion gap metabolic acidosis. The patient has renal failure, and he has lactic acidosis as well secondary to metastatic disease in the thoracoabdominal region. Liver is unable to metabolize the lactate because of mets. No need of IV bicarb containing fluids. Serum bicarb level is stable at this time. Hopefully it should get better with improvement in the renal function. 4. Hyperkalemia. Potassium has improved with improvement in the urine output. 5. Diastolic congestive heart failure. The patient's volume status is decompensated because of aggressive IV fluid hydration and shock. I have given him a small dose of Lasix 40 mg IV in the morning. 6. Metastatic disease in the liver. The patient has persistently elevated bilirubin and liver enzyme levels. It is secondary to metastatic lesions. 7. Metastatic adenocarcinoma of the esophagus. The patient is currently not on any chemotherapy, and he is not a candidate for any chemotherapy because of his acute sickness. 8. Chronic gout secondary to chronic kidney disease. Allopurinol was held because of renal failure, uric acid level is 6.1, which is optimal at this time. 9. Metastatic left adrenal lesion. The patient is on a stress dose steroid. We were told by the patient's that that lesion is known from the previous images as well. Hydrocortisone dose will be slowly tapered down. 10. Chronic obstructive pulmonary disease (COPD) with metastatic lung lesions from adenocarcinoma of esophagus. The patient is on IV antibiotics. He is on hydrocortisone, and he is getting nebulizations. Currently he is on nasal cannula. 11. Disposition: Patient overall has a very poor prognosis because of metastatic adenocarcinoma of the esophagus with multiple comorbidities. Goals of care need to be discussed with the patient's . Total critical care time spent in the management of this patient today morning in the ICU was 50 minutes.
[2019-11-17] MEDS: PIPERACILLIN/TAZOBACTAM SOD 2.25 GM in D5W MINI-BAG PLUS 50 ML IV SCH ×3 (00:51→16:37)
[2019-11-17] MEDS: HYDROCORTISONE 100 MG/2 ML VIAL (J1720 PER 1) IV SCH (04:05)
[2019-11-17 05:23] LABS: HEMATOCRIT 28.8 % (42.0-52.0); MEAN CORPUSCULAR HEMOGLOBIN 31.1 pg (27.0-33.0); MEAN CORPUSCULAR HGB CONC 34.7 g/dl (32.0-36.5); MEAN CORPUSCULAR VOLUME 89.4 fl (80.0-96.0); PLATELET COUNT, AUTOMATED 270 10^3/uL (150-450); RED BLOOD COUNT 3.22 10^6/uL (4.30-6.10); WHITE BLOOD COUNT 19.5 10^3/uL (4.0-10.0)
[2019-11-17 06:00] LABS: ALBUMIN 1.6 GM/DL (3.2-5.2); BILIRUBIN,TOTAL 6.1 MG/DL (0.2-1.0); CALCIUM LEVEL 8.2 MG/DL (8.8-10.2); CREATININE FOR GFR 2.47 MG/DL (0.70-1.30); GLOMERULAR FILTRATION RATE 27.2 (>42); POTASSIUM SERUM 4.7 MEQ/L (3.5-5.1); TOTAL PROTEIN 4.5 GM/DL (6.4-8.2)
[2019-11-17] MEDS: BUDESONIDE 0.5 MG/2 ML INHALATION SUSPENSION NEB SCH (07:25)
[2019-11-17] MEDS: FORMOTEROL FUMARATE 20 MCG/2 ML INHALATION SOLUTION (PERFOROMIST) INH SCH (07:25)
[2019-11-17] MEDS: TIOTROPIUM INHALER/CAPSULE (SPIRIVA) INH SCH (07:25)
[2019-11-17] MEDS: OMEPRAZOLE 20 MG CAP PO SCH (08:11)
[2019-11-17] MEDS: ASPIRIN 81 MG ENTERIC TAB PO SCH (08:12)
[2019-11-17] MEDS: DONEPEZIL 5 MG TAB PO SCH (08:12)
[2019-11-17] MEDS: MULTIVITAMINS/MINERALS THERAP 1 TAB PO SCH (08:12)
[2019-11-17] MEDS: guaiFENesin ER 600 MG TAB PO SCH (08:12)
[2019-11-17] MEDS: PREGABALIN 75 MG CAP(LYRICA) PO SCH (08:12)
[2019-11-17] MEDS: MAGNESIUM OXIDE 400MG TAB (MAG-OX) PO SCH (08:12)
[2019-11-17] MEDS: HEPARIN SOD (PORCINE) 5000UNITS/ML 1ML VIAL/SYRINGE SC SCH (08:12)
[2019-11-17] MEDS: SODIUM CHLORIDE 0.9% INJ 10 ML SYR IV SCH (08:13)
[2019-11-17] MEDS: ONDANSETRON 4 MG TAB PO PRN (09:17)
[2019-11-17] MEDS: MIDODRINE 5 MG TAB PO SCH ×2 (11:58→15:04)
[2019-11-17] MEDS ORDERED: HYDROCORTISONE 100 MG/2 ML VIAL (J1720 PER 1) IV SCH (12:00)
--- NOTE | 2019-11-17 12:10 | IPNPDOC ---
Text Note Date of Service The patient was seen on 11/17/19. NOTE Interim events: -Afebrile, however yesterday had severe postural hypotension with unresponsiveness and had to be resumed on levophed for a few hours twice. This morning transferred well however had noted asymptomatic hypotension and restarted on lev -Was started on empiric stress dose hydrocortisone yesterday -Echo was grossly unremarkable with normal EF and grade 1 diastolic dysfunction without significant valvular abnormalities or obstructive physiology to explain the symptomatic postural hypotension -Spoke with Dr. James who recommended to continue empiric zosyn but no recommendation of spinal imaging at this time Physical Examination General: Morbidly obese, NAD Eye: PERRLA, Conjunctiva & lids normal ENT: Atraumatic, dry MM Neck: Supple Chest: Bilateral diffuse crackles to posterior lung oorzco Heart: RRR, Normal S1, Normal S2, no mrg Abdomen: Obese, hypoactive sounds, soft, nontender Extremity: WWP, 2+ LE edema bilaterally to above knees Skin: Nl turgor and temperature, chronic LE skin changes, Neuro: AOx3, 5/5 strength in all 4 extremities, clear speech Psych: AOx3 Labs: WBC 19.5, Hgb 10, platelets 270, Na 134, K 4.7, Cr 2.47, AM cortisol pre-soluc ortef was 186.4 Imaging: CXR: Bilateral pulmonary nodules appear essentially unchanged. No definite acute infiltrate. There is left ventricular prominence unchanged. Mediastinal silhouette is unchanged. A right-sided central venous catheter is unchanged. renal US: unremarkable study with normal appearing kidneys without hydronephrosis or suggestion of obstructive pathology CT A/P: Extensive bulky hepatic metastatic disease with the largest confluent area of low density measuring up to 13 cm in the left lobe. These are similar to the prior study. There is a left adrenal metastatic mass 5 cm in greatest diameter. The right adrenal gland is normal. The there is a gastrostomy tube in place in the left upper quadrant. There is no evidence of abdominal abscess or free fluid. A Aguilera catheter is seen in the bladder. Prostate is enlarged. There is left colonic diverticulosis without CT evidence of diverticulitis. CT chest: Multiple metastatic pulmonary nodules are again seen. These show progression in size although not in number in the short interval since the November 01, 2019 study. Many of the lesions have enlarged. There is a 2.7 cm nodule in the superior segment right lower lobe which measured 1.8 cm 2 weeks ago. Similarly, a left lower lobe lesion has increased in greatest diameter from 2.8 cm to 3.1 cm. Its short-axis dimension was 2.0 cm 2 weeks ago and is 2.4 cm today. No lung infiltrate is seen. There is mild bilateral lower lobe plate like atelectasis. No pleural effusion is seen. The distal esophageal mass and paraesophageal node is again seen. The periesophageal node measures 2.5 cm in greatest dimension today, previously 2.4 cm. There is extensive bulky low- density metastatic involvement of the liver. There is a left adrenal mass measuring 4.9 cm in greatest diameter previously 4.6 cm. TTE: 1. Degenerative, calcific aortic valve disease of a 3-cusp aortic valve with severe focal thickening and focal calcific deposits. Mild reduction in aortic cusp mobility. Mild aortic stenosis. No aortic regurgitation. 2. Normal left ventricle internal dimensions and wall thickness. Normal regional left ventricular (LV) wall motion and wall thickening. Hyperdynamic LV systolic function. Left ventricular ejection fraction (LVEF) 75% by visual estimate. Grade I LV diastolic dysfunction (impaired relaxation filling pattern). 3. Suggestive of mild elevation of pulmonary artery systolic pressure. 4. Very small pericardial effusion seen over the posterior wall of the left ventricle. No diastolic chamber collapse. 5. 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, COPD, asthma, obstructive sleep apnea, GERD, hypertension, , hypo kalemia, hyperlipidemia, diverticulosis, peptic ulcer disease, gout, psoriasis, advanced dementia, cataracts, dry eye syndrome, osteoarthritis, recently admitted for ZHANNA presumed prerenal with some improvement with hydration who now returns a few days after hospital discharge from oncology clinic where he was sent to the ED after he was noted to be having worsening renal function on labs while he reporting low UOP and poor PO who was initially admitted for likely prerenal ZHANNA c/b shock with fever, presumed septic with unclear source and was started on empiric vanc/zosyn pending imaging investigations that now revealed extensive metastatic disease without evidence of infection however with profound orthostatic hypotension. Shock, initially presumed septic with fever, however with unclear source. Fever, tachycardia, leukocytosis, hypotension -f/u BCx NGTD, UA was without evidence of infection, CXR was without infiltrates. Now s/p CT chest, A/P all with extensive metastatic disease but w ithout evidence of acute infection, with a 4.9cm adrenal mass -continue empiric zosyn, dc vanc 11/15 after MRSA PCR was negative -continues on levophed with MAP goal >65, will start midodrine 10 TID for orthostasis -Given adrenal mass and w/ potential for hemorrhage and/or metastatic invasion, was started on empiric stress dose hydrocortisone, but with AM cortisol being high pre-steroids, will taper now, will give 50Q8H today -Spoke with Dr. James who recommended to continue empiric zosyn but no r ecommendation of spinal imaging at this time -f/u BCx -stop pramipexole that he takes for RLS that may cause significant orthostasis ZHANNA most likely 2/2 dehydration in the setting of BID can of jevity via PEG and barely any PO due to early satiety in the setting of esophageal CA. Improving. -Continue D5NS at 75cc/hr -continue holding all nephrotoxic meds including allopurinol, ARB, sulfasalazine -DVT prophylaxis with heparin -nephrology consulted -strict I/Os Lactic acidosis: 2/2 septic shock and dehydration -downtrended Esophageal adenocarcinoma, follows up with Dr Branch. -pending to start therapy, however c/b ZHANNA at this time. Dr. Branch aware, sent patient to the ED for the ZHANNA -will have GOC discussion with family that comes in today after reaching out to Dr. Branch LFT abnormalities in the setting of liver mets -elevated since the previous visit -recently had MRI of abdomen on 10/29 that confirmed the liver metastases -monitor Hypertension: hold ARB in the setting of acute kidney injury, dehydration and septic shock Hyperlipidemia: hold statin in the setting of worsening liver function in the setting of liver mets Gout: hold allopurinol in the setting of renal injury Dementia: Chronic -Continue home meds Psoriasis -holding sulfasalazine Iron deficiency anemia: Chronic -monitor DVT ppx: heparin Diet: pureed Dispo: ICU VS,Fishbone, I+O VS, Fishbone, I+O Laboratory Tests 11/17/19 04:36 Vital Signs Date Time Temp Pulse Resp B/P (MAP) Pulse Ox O2 Delivery O2 Flow Rate FiO2 11/17/19 06:30 93 118/61 (80) 95 NIPPV (BIPAP/CPAP) 11/17/19 04:00 98.6 18 11/17/19 04:00 2.0 11/16/19 04:00 40 I&O- Last 24 Hours up to 6 AM 11/17/19 06:00 Intake Total 2006.6 ml Output Total 2525 ml Balance -518.4 ml MARIANGEL LACY MD Nov 17, 2019 08:24
--- NOTE | 2019-11-17 12:35 | IPNPDOC ---
Date Seen Family meeting on 11/17/19. Progress Note Oncology Family meeting with today Chart and laboratory data reviewed Patient verbalized that he would like to go home Patient has explosive metastatic disease. Significant progression on lung tumors in only 2 weeks' time High tumor burden in liver Progression of liver failure and ongoing renal failure T bili 6.1 Remains hypotensive There is absolutely no hope for improvement Patient will be bedridden There is no role for palliative chemotherapy Family would like the patient to go home on hospice Recommend continuing aggressive support financial to allow this to happen and plan on going home with hospice Expect denies at home within days and expect to be painless and comfortable for the patient as dying from liver failure is a not a bad way to go I discussed with the that the patient will be 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 I also discussed that time and could be quite short given the hypotension We will try to do everything in our power get the patient home alive so family can see him and he can enjoy the last few remaining moments of his life in his own house VS, I&O, 24H, Fishbone Vital Signs/I&O Vital Signs Date Time Temp Pulse Resp B/P (MAP) Pulse Ox O2 Delivery O2 Flow Rate FiO2 11/17/19 10:50 93 83/48 (60) 94 Nasal Cannula 2.0 11/17/19 08:00 97.2 20 11/16/19 04:00 40 I&O- Last 24 Hours up to 6 AM 11/17/19 06:00 Intake Total 2006.6 ml Output Total 2525 ml Balance -518.4 ml Laboratory Data 24H LABS Laboratory Tests 2 11/17/19 04:36: Nucleated Red Blood Cells % (auto) 0.5H, Anion Gap 10, Glomerular Filtration Rate 27.2L, Calcium Level 8.2L, Total Bilirubin 6.1H, Aspartate Amino Transf (AST/SGOT) 505H, Alanine Aminotransferase (ALT/SGPT) 216H, Alkaline Phosphatase 624H, Total Protein 4.5L, Albumin 1.6L, Albumin/Globulin Ratio 0.6 CBC/BMP Laboratory Tests 11/17/19 04:36 Microbiology Microbiology 11/15/19 Respiratory Virus Panel (PCR) (OSCAR) - Final, Complete 11/14/19 Blood Culture - Preliminary, Resulted No Growth after 48 hours. All Specime... 11/14/19 Blood Culture - Preliminary, Resulted No Growth after 48 hours. All Specime... KADI MALDONADO MD Nov 17, 2019 12:35
[2019-11-17] MEDS ORDERED: HYOS125TA PO (15:56)
[2019-11-17] MEDS ORDERED: ATIV1TAB10 PO (15:56)
[2019-11-17] MEDS ORDERED: MORP20SO3 PO (15:56)
[2019-11-17] MEDS ORDERED: MIDO5TA PO (16:01)
--- NOTE | 2019-11-17 16:26 | DS.PDOC ---
Discharge Summary General Date of Admission Nov 14, 2019 at 18:03 Date of Discharge 11/17/2019 Attending Physician: MARIANGEL LACY MD Discharge Summary PROCEDURES PERFORMED DURING STAY: None ADMITTING DIAGNOSES: 1. 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 HISTORY OF PRESENT ILLNESS: 74 years old white M with metastatic esophageal cancer stage IV with liver me tastases, COPD, asthma, obstructive sleep apnea, GERD, hypertension, , hypokalemia, hyperlipidemia, diverticulosis, peptic ulcer disease, gout, psoriasis, advanced dementia, cataracts, dry eye syndrome, osteoarthritis, recently admitted for ZHANNA 2/2 dehydration who returned a few days after hospital discharge from oncology clinic where he was sent to the ED after he was noted to be having worsening renal function on labs while reporting lower than baseline urine output without new hypoxemia or worsening dyspnea or massive LE edema reporting poor PO and mostly only jevity BID via his PEG tube. Briefly, his oncological history includes diagnosis of metastatic esophageal CA in 04/2019 s/p chemo/XRT who was pending surgery in 08/2019 that was postponed due to covid- 19 crisis, who was following with his oncologist Dr. Branch who noted severe ZHANNA on routine labs and sent him in to the ED. HOSPITAL COURSE: In the ED, he was hemodynamically stable with soft borderline BP, afebrile. Workup was notable for Cr 4.28, BUN 57, WBC 14.7, hgb 10.4, platelets 240, AST 1744, ALT 442, Tbili 4.1, Dbili 3.5, albumin 1.8, alk phos 733, UA with 1+ protein and 1+ blood, lactate 4.1. He was admitted for worsening renal function and consult was nephrology and he was aggressively hydrated and course was c/b fever and hypotension for which he was transferred to the ICU for septic shock and started on broadspectrum antibiotics that were eventually narrowed to empiric zosyn after he was MRSA negative. Infectious workup was grossly negative with a bland UA, no opacities on CXR, BCx negative and he ultimately had a CT chest and A/P that showed no evidence of infectious focus but confirmed massive progressive of metastatic disease with large left adrenal mass of ~5cm. Fevers resolved with antibiotics but he was noted to have profound symptomatic orthostatic hypotension with syncope with transfer from bed to commode etc, such that he required restarting of levophed several times. We empirically started him on stress dose steroids presuming adrenal insufficiency but his AM cortisol was actually high and the steroids were ultimately reduced and discontinued now at discharge to home with hospice. Given the massive POD, Dr. Branch had a GOC discussion with Mr and Mrs. Caba and they ultimately consulted hospice and decision was made to discharge him home with home hospice. He is now being disch arged home with plan for home hospice to see patient at his residence on Wednesday, hospital bed to be delivered on Wednesday. Nephrology had discussed switching his feeds from jevity to nepro but given the evolved GOC, the family will continue with jevity at this time. DISCHARGE MEDICATIONS: Please see below. ALLERGIES: Please see below. PHYSICAL EXAMINATION ON DISCHARGE: VITAL SIGNS: Please see below. General: Morbidly obese, NAD Eye: PERRLA, Conjunctiva & lids normal ENT: Atraumatic, dry MM Neck: Supple Chest: Bilateral diffuse crackles to posterior lung orozco Heart: RRR, Normal S1, Normal S2, no mrg Abdomen: Obese, hypoactive sounds, soft, nontender Extremity: WWP, 2+ LE edema bilaterally to above knees Skin: Nl turgor and temperature, chronic LE skin changes, Neuro: AOx3, 5/5 strength in all 4 extremities, clear speech Psych: AOx3 LABORATORY DATA: Please see below. IMAGING: CXR: Bilateral pulmonary nodules appear essentially unchanged. No definite acute infiltrate. There is left ventricular prominence unchanged. Mediastinal silhouette is unchanged. A right-sided central venous catheter is unchanged. renal US: unremarkable study with normal appearing kidneys without hy dronephrosis or suggestion of obstructive pathology CT A/P: Extensive bulky hepatic metastatic disease with the largest confluent area of low density measuring up to 13 cm in the left lobe. These are similar to the prior study. There is a left adrenal metastatic mass 5 cm in greatest diameter. The right adrenal gland is normal. The there is a gastrostomy tube in place in the left upper quadrant. There is no evidence of abdominal abscess or free fluid. A Aguilera catheter is seen in the bladder. Prostate is enlarged. There is left colonic diverticulosis without CT evidence of diverticulitis. CT chest: Multiple metastatic pulmonary nodules are again seen. These show progression in size although not in number in the short interval since the November 01, 2019 study. Many of the lesions have enlarged. There is a 2.7 cm nodule in the superior segment right lower lobe which measured 1.8 cm 2 weeks ago. Similarly, a left lower lobe lesion has increased in greatest diameter from 2.8 cm to 3.1 cm. Its short-axis dimension was 2.0 cm 2 weeks ago and is 2.4 cm today. No lung infiltrate is seen. There is mild bilateral lower lobe plate like atelectasis. No pleural effusion is seen. The distal esophageal mass and paraesophageal node is again seen. The periesophageal node measures 2.5 cm in greatest dimension today, previously 2.4 cm. There is extensive bulky low- density metastatic involvement of the liver. There is a left adrenal mass measuring 4.9 cm in greatest diameter previously 4.6 cm. TTE: 1. Degenerative, calcific aortic valve disease of a 3-cusp aortic valve with severe focal thickening and focal calcific deposits. Mild reduction in aortic cusp mobility. Mild aortic stenosis. No aortic regurgitation. 2. Normal left ventricle internal dimensions and wall thickness. Normal regional left ventricular (LV) wall motion and wall thickening. Hyperdynamic LV systolic function. Left ventricular ejection fraction (LVEF) 75% by visual estimate. Grade I LV diastolic dysfunction (impaired relaxation filling pattern). 3. Suggestive of mild elevation of pulmonary artery systolic pressure. 4. Very small pericardial effusion seen over the posterior wall of the left ventricle. No diastolic chamber collapse. 5. Otherwise normal appearing echocardiogram Doppler findings PROGNOSIS: Poor ACTIVITY: As tolerated. DIET: As tolerated, recommended for pureed DISCHARGE PLAN: Home with hospice DISPOSITION: home with hospice DISCHARGE INSTRUCTIONS: 1. Home with hospice. ITEMS TO FOLLOWUP ON ON OUTPATIENT: 1. Comfort measures with home hospice care DISCHARGE CONDITION: Stable TIME SPENT ON DISCHARGE: 65 minutes. Vital Signs/I&Os Vital Signs Date Time Temp Pulse Resp B/P (MAP) Pulse Ox O2 Delivery O2 Flow Rate FiO2 11/17/19 15:45 91 104/59 (74) 96 Room Air 11/17/19 14:50 11/17/19 12:00 97.5 20 11/16/19 04:00 40 I&O- Last 24 Hours up to 6 AM 11/17/19 06:00 Intake Total 2006.6 ml Output Total 2525 ml Balance -518.4 ml Laboratory Data Labs 24H Laboratory Tests 2 11/17/19 04:36: Nucleated Red Blood Cells % (auto) 0.5H, Anion Gap 10, Glomerular Filtration Rate 27.2L, Calcium Level 8.2L, Total Bilirubin 6.1H, Aspartate Amino Transf (AST/SGOT) 505H, Alanine Aminotransferase (ALT/SGPT) 216H, Alkaline Phosphatase 624H, Total Protein 4.5L, Albumin 1.6L, Albumin/Globulin Ratio 0.6 CBC/BMP Laboratory Tests 11/17/19 04:36 Microbiology Microbiology 11/15/19 Respiratory Virus Panel (PCR) (OSCAR) - Final, Complete 11/14/19 Blood Culture - Preliminary, Resulted No Growth after 48 hours. All Specime... 11/14/19 Blood Culture - Preliminary, Resulted No Growth after 72 hours. All specime... Discharge Medications Scheduled Arformoterol Tartrate (Brovana) 15 Mcg/2 Ml Vial.neb, 1 VIAL NEB BID, (Reported) MIX WITH BUDESONIDE Budesonide (Budesonide) 0.5 Mg/2 Ml Neb, 1 VIAL NEB BID, (Reported) WITH BROVANA Cetirizine HCl (Cetirizine HCl) 5 Mg Tablet, 5 MG PO QHS, (Reported) Cyclosporine (Restasis) 0.05% Droperette, 1 DROP OU DAILY, (Reported) Midodrine HCl (Midodrine HCl) 5 Mg Tablet, 10 MG PO 08,12,16 Mometasone Furoate Monohydrate (Nasonex) 120 Tiro/17 Gm Naspr, 1 SPRAY NARES BID, (Reported) Montelukast Sodium (Singulair) 10 Mg Tab, 10 MG PO QHS, (Reported) Pregabalin (Lyrica) 75 Mg Capsule, 75 MG PO TID, (Reported) Umeclidinium Brm/Vilanterol Tr (Anoro Ellipta 62.5-25 Mcg INH) 1 Each Blst.w.dev, 1 PUFF INH DAILY, (Reported) [Jevity] 1.5 gisselle CAN, 1 CAN PEG BID, (Reported) Scheduled PRN Acetaminophen (Acetaminophen) 500 Mg Tablet, 1,000 MG PO Q6H PRN for PAIN, (Reported) Cannabidiol (Cbd Oil) Btl, 1 ML PO BID PRN for BACK PAIN, (Reported) Hyoscyamine Sulfate (Hyoscyamine Sulfate) 0.125 Mg Tab.subl, 0.125 MG PO Q4HP PRN for TERMINAL SECRETIONS Use sublingually if unable to swallow Lorazepam (Ativan) 0.5 Mg Tablet, 0.5 MG PO Q4HP PRN for ANXIETY/AGITATION Use sublingually if unable to swallow Morphine Sulfate (Morphine Sulfate) 100 Mg/5 Ml Solution, 0.25-1 ML PO Q2H PRN for PAIN OR DYSPNEA Use sublingually if unable to swallow Ondansetron HCl (Ondansetron HCl) 8 Mg Tablet, 8 MG PO Q8HP PRN for NAUSEA OR VOMITING Prochlorperazine Maleate (Prochlorperazine Maleate) 10 Mg Tablet, 10 MG PO Q8HP PRN for NAUSEA OR VOMITING Allergies Coded Allergies: thiopental (Verified Allergy, Unknown, 11/06/19) fluticasone (Verified Adverse Reaction, Mild, coughing/hacking/stuffy nose, 11/06/19) MARIANGEL LACY MD Nov 17, 2019 16:26
--- NOTE | 2019-11-17 16:47 | IPNPDOC ---
Date Seen The patient was seen on 11/17/19. Progress Note Oncology Prolonged discussion with the patient earlier today. Patient is in agreement to go home with hospice. Order placed for hospice Patient is not eligible for palliative chemotherapy as discussed Patient is not interested in spending the rest of his short life in the hospital Patient understands that hospice is voluntary and then if he does have clinical improvement we could consider palliative chemotherapy Given growth kinetics and rapid expansion of his explosive high burden esophage al adenocarcinoma with involvement of 2 vital organs involving his liver and lungs with failure of third vital organ his kidneys, expected survival is days to maximum of weeks Thank you kindly for allowing me to participate in the care of this patient. A full consult was not performed as we were not officially consulted. VS, I&O, 24H, Fishbone Vital Signs/I&O Vital Signs Date Time Temp Pulse Resp B/P (MAP) Pulse Ox O2 Delivery O2 Flow Rate FiO2 11/17/19 15:45 91 104/59 (74) 96 Room Air 11/17/19 14:50 11/17/19 12:00 97.5 20 11/16/19 04:00 40 I&O- Last 24 Hours up to 6 AM 11/17/19 06:00 Intake Total 2006.6 ml Output Total 2525 ml Balance -518.4 ml Laboratory Data 24H LABS Laboratory Tests 2 11/17/19 04:36: Nucleated Red Blood Cells % (auto) 0.5H, Anion Gap 10, Glomerular Filtration Rate 27.2L, Calcium Level 8.2L, Total Bilirubin 6.1H, Aspartate Amino Transf (AST/SGOT) 505H, Alanine Aminotransferase (ALT/SGPT) 216H, Alkaline Phosphatase 624H, Total Protein 4.5L, Albumin 1.6L, Albumin/Globulin Ratio 0.6 CBC/BMP Laboratory Tests 11/17/19 04:36 Microbiology Microbiology 11/15/19 Respiratory Virus Panel (PCR) (OSCAR) - Final, Complete 11/14/19 Blood Culture - Preliminary, Resulted No Growth after 48 hours. All Specime... 11/14/19 Blood Culture - Preliminary, Resulted No Growth after 72 hours. All specime... KADI MALDONADO MD Nov 17, 2019 16:47
[2019-11-17] MEDS: NOREPINEPHRINE BITARTRATE 16 MG in D5W 484 ML IV SCH (17:00)
--- NOTE | 2019-11-18 12:38 | IPN ---
DATE: SUBJECTIVE: The patient was seen and examined at the bedside this morning in the intensive care unit (ICU). He had to be restarted on Levophed infusion yesterday because of hypotension. Levophed is being weaned off. He is currently on a 3 mcg of Levophed. He was also given IV Lasix yesterday because of shortness of breath and edema. He has a good urine output. Renal function is stable and improving, creatinine has come down to 2.7. He continues to be on IV antibiotics. The patient is awake and he was able to communicate with me. OBJECTIVE: VITAL SIGNS: Temperature is 97.9 degrees Fahrenheit, blood pressure 106/53, pulse is 71, respiratory of 20, saturating 95% on room air. Intake and output: Urine output recorded is 2.5 liters yesterday 1.7 liters so far today since overnight. Weight in the bed scale is 139.6 kg. PHYSICAL EXAMINATION: GENERAL: The patient is awake, alert, oriented times two laying in bed, morbidly obese. HEAD AND NECK EXAM: Extraocular muscles intact. Pupils equally round and reactive to light. Mucous membranes are moist. Neck is supple. There is mildly elevated jugular venous distention (JVD). CARDIOVASCULAR: S1, S2, regular rate. 1+ edema of the bilateral lower extremities. RESPIRATORY: Mildly decreased breath sounds at the bases with inspiratory crackles at the bases bilaterally. ABDOMEN: Soft, obese, positive bowel sounds. No significant organomegaly was noted. GENITOURINARY: He has an indwelling Aguilera catheter. MUSCULOSKELETAL: No clubbing or cyanosis. Pulses are 2+. CENTRAL NERVOUS SYSTEM ([employer]): No focal deficit. The patient moves all extremities. He is hard of hearing but he is able to follow commands. LAB REVIEW: CBC showed WBC 19.5, hemoglobin is 10, platelets of 270. BMP showed sodium 134, potassium 4.7, chloride 104, bicarb is 20, BUN 63, creatinine is 2.4, it was 3.1 yesterday. Total bilirubin 6.1, AST 505, ALT 216, alk phos is 624, albumin is 1.6. Microbiology: All the cultures are negative so far. CURRENT INPATIENT MEDICATIONS: The patient's medications were all reviewed by myself. His IV hydrocortisone is being tapered down because of a.m. cortisol level within the normal range. He continues to be on IV antibiotics. Levophed currently is at 3 mcg. ASSESSMENT/PLAN: 1. Acute nonoliguric renal failure: Patient's renal function is improving after treatment of shock, creatinine is trending down. Electrolytes are getting better. 2. 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 The patient is still requiring Levophed at 3 mcg. He continues to be on empiric antibiotics. Cultures are negative. Stress dose hydrocortisone is being tapered down. 3. Diastolic congestive heart failure: The patient got aggressive IV fluid hydration and because of shortness of breath and edema yesterday he needed IV Lasix. He is making good amount of urine. Volume status is getting better. 4. 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 The patient is too unstable for any palliative chemotherapy. He was seen by Hematology/Oncology and they are recommending hospice and palliative care. 5. Disposition: The patient overall has a poor prognosis. His family is going to decide about hospice care in the afternoon. Continue the current therapy until final decision is made. Total critical care time spent in the management of this patient this morning in the ICU was 40 minutes. MTDD
== END 2019-11-17 17:45 | disposition hospice, home (50) | DRG 683 ==
LOC: M ED 12:58 → M ED INP 18:03 → ENRESERV 18:34 → M MSPAV 19:13 → M ED INP 19:25 → M MSPAV 19:44 → M ICU 23:15
PROVIDERS: ADMIT Internal Medicine; ATTEND Internal Medicine
DX: N17.9 Acute kidney failure, unspecified (principal); R57.9 Shock, unspecified; E87.2 Acidosis; Z68.42 Body mass index [BMI] 45.0-49.9, adult; I50.32 Chronic diastolic (congestive) heart failure; C15.9 Malignant neoplasm of esophagus, unspecified; C78.00 Secondary malignant neoplasm of unspecified lung; C79.72 Secondary malignant neoplasm of left adrenal gland; C78.7 Secondary malignant neoplasm of liver and intrahepatic bile duct; I11.0 Hypertensive heart disease with heart failure; K21.9 Gastro-esophageal reflux disease without esophagitis; E78.5 Hyperlipidemia, unspecified; M10.30 Gout due to renal impairment, unspecified site; J44.9 Chronic obstructive pulmonary disease, unspecified; M19.90 Unspecified osteoarthritis, unspecified site; K57.30 Diverticulosis of large intestine without perforation or abscess without bleeding; I95.1 Orthostatic hypotension; L40.8 Other psoriasis; G47.33 Obstructive sleep apnea (adult) (pediatric); E87.6 Hypokalemia; F03.90 Unspecified dementia, unspecified severity, without behavioral disturbance, psychotic disturbance, mood disturbance, and anxiety; Z79.899 Other long term (current) drug therapy; Z88.8 Allergy status to other drugs, medicaments and biological substances; E86.0 Dehydration; D50.9 Iron deficiency anemia, unspecified